=== PATIENT | female | born 1950 | race American Indian/Alaskan Native ===

== ENCOUNTER 2020-04-03 15:38 | Inpatient (IN) | payer MEDICARE ==
[2020-04-03] MEDS ORDERED: levETIRAcetam 1000 MG/NS 0.75% 1,000 MG/100 ML BAG IV ONE (15:52)
[2020-04-03] MEDS ORDERED: LORazepam 2 MG/ML VIAL IM ONE (15:52)
[2020-04-03] MEDS ORDERED: LORazepam 2 MG/ML VIAL IV ONE (16:03)
--- NOTE | 2020-04-03 16:11 | Consultation ---
History of Present Illness History of present illness: [facility] Date of Service: 04/03/2020 15:45:31 Impression: Status Epilepticus Comments/Sign-Out: Patient is a 69 years old woman who presents to the ED after she was found unresponsive, with right gaze deviation. She had a witnessed seizure on her way to the ED. Exam is limited due to patient unable to follow commands. Unable to obtain a NIHSS. On exam, eyes are opened but she is not following verbal commands. There's some grimacing to deep sternal rub. During my evaluation, patient had a tonic right gaze deviation, her head turned right, and she had tonic posturing of her left arm. Shortly after, she had generalized jerking of all 4 extremities. Ativan 2 mg was given and Keppra 1,000 mg IV was ordered. Presentation is more consistent with status epilepticus. Non contrast CTH showed no acute abnormalities. Metrics: Last Known Well: 04/03/2020 11:30:00 [facility] Notification Time: 04/03/2020 15:45:00 Arrival Time: 04/03/2020 15:38:00 Stamp Time: 04/03/2020 15:45:31 Time First Login Attempt: 04/03/2020 15:52:28 Video Start Time: 04/03/2020 15:52:28 Symptoms: AMS NIHSS Start Assessment Time: 04/03/2020 16:01:30 Patient is not a candidate for tPA. Patient was not deemed candidate for tPA thrombolytics because of Presentation more consistent with seizure. Video End Time: 04/03/2020 16:06:35 CT head showed no acute hemorrhage or acute core infarct. Clinical Presentation is not Suggestive of Large Vessel Occlusive Disease ED Physician notified of diagnostic impression and management plan on 04/03/2020 16:05:01 Our recommendations are outlined below. Recommendations: Activate Stroke Protocol Admission/Order Set Stroke/Telemetry Floor Neuro Checks Bedside Swallow Eval DVT Prophylaxis IV Fluids, Normal Saline Head of Bed 30 Degrees Euglycemia and Avoid Hyperthermia (PRN Acetaminophen) Routine Consultation with Inhouse Neurology for Follow up Care Sign Out: Discussed with Emergency Department Provider History of Present Illness: Patient is a 69 year old Female. Patient was brought by EMS for symptoms of AMS Patient is 69 years old woman who presents to the ED after her son found her in a "catatonic state". LKW at 11:30 am. As per EMS report, patient was found with her eyes opened but not following verbal commands or withdrawing to pain. She was also reported to have a right gaze deviation. Patient had a witnessed seizure by EMS on her way to the ED. PMhx significant for alcohol abuse and HTN. No other history is available at this time. Last seen normal was beyond 4.5 hours of presentation. There is no history of hemorrhagic complications or intracranial hemorrhage. There is no history of Recent Anticoagulants. There is no history of recent major surgery. There is no history of recent stroke. Examination: BP(188/98), NIHSS cannot be completed due to patient status. Due to the immediate potential for life-threatening deterioration due to underlying acute neurologic illness, I spent 35 minutes providing critical care. This time includes time for face to face visit via telemedicine, review of medical records, imaging studies and discussion of findings with providers, the patient and/or family. Dr Keisha Sheikh [facility] Case [id number] Medications and Allergies Allergies Allergy/AdvReac Type Severity Reaction Status Date / Time Unable to Assess Allergy Unverified 04/03/20 15:47 Active Meds: Active Medications Levetiracetam (Keppra 1,000 Mg/Ns 0.75% 100ml) 1,000 mg in 100 mls @ 400 mls/hr IV ONCE ONE Stop: 04/03/20 16:06
[2020-04-03 16:18] LABS: Basophils # (Auto) 0.1 K/mm3 (0.0-0.1); Basophils % (Auto) 0.7 % (0.0-1.8); Eosinophils # (Auto) 0.3 K/mm3 (0.0-0.4); Eosinophils % (Auto) 1.8 % (0.0-4.3); Hematocrit 38.5 % (30.3-42.9); Lymphocytes # (Auto) 3.3 K/mm3 (1.2-5.4); Lymphocytes % (Auto) 22.1 % (13.4-35.0); Mean Corpuscular HGB Conc 34 % (30-34); Mean Corpuscular Volume 94 fl (79-97); Monocytes # (Auto) 1.3 K/mm3 (0.0-0.8); Monocytes % (Auto) 8.9 % (0.0-7.3); Platelet Count 238 K/mm3 (140-440); Red Blood Count 4.08 M/mm3 (3.65-5.03); Red Cell Distribution Width 12.9 % (13.2-15.2)
--- NOTE | 2020-04-03 16:25 | Cat Scan Report ---
CT head/brain wo con INDICATION / CLINICAL INFORMATION: 69 years Female; MAIN: CODE STROKE ALL [phone]. TECHNIQUE: Routine CT head without contrast. All CT scans at this location are performed using CT dos e reduction for ALARA by means of automated exposure control. COMPARISON: None. FINDINGS: BRAIN / INTRACRANIAL CONTENTS: The motion degrades image quality. However, there is mild cerebral whi te matter disease which is nonspecific though may reflect microvascular angiopathy. There are foci of calcification within the basal ganglia bilaterally. There is no clear CT evidence of acute intracran ial hemorrhage. There is prominence of the lateral and third ventricles which may be slightly out of proportion to th e degree of cerebral atrophy and correlation would be needed regarding normal pressure hydrocephalus. No obstructing lesions are appreciated. ORBITS: No significant abnormality of visualized orbits. SINUSES / MASTOIDS: No significant abnormality the visualized paranasal sinuses or mastoid air cells. CRANIOCERVICAL JUNCTION: No significant abnormality. ADDITIONAL FINDINGS: None. IMPRESSION: 1. This mild microvascular angiopathy without CT evidence of acute intracranial hemorrhage. 2. There is prominence of the ventricular system which may be mildly out of proportion to the degree of cerebral atrophy as described. The study was specified as code stroke and called to the ER at 3:18 PM Central standard time. Signer Name: Thony Way MD Signed: 04/03/2020 4:20 PM Workstation Name: [id number]
[2020-04-03 16:44] LABS: INR 1.11 (0.87-1.13)
[2020-04-03 16:45] LABS: Partial Thromboplastin Time 29.4 Sec. (24.2-36.6)
[2020-04-03 16:53] LABS: BUN/Creatinine Ratio 14; Blood Urea Nitrogen 10 mg/dL (7-17); Calcium 9.3 mg/dL (8.4-10.2); Hemolysis Index 7
--- NOTE | 2020-04-03 18:45 | Emergency Department Report ---
ED Seizure HPI - General Chief Complaint: Seizure Stated Complaint: AMS Time Seen by Provider: 04/03/20 15:48 Source: EMS Mode of arrival: Stretcher Limitations: Altered Mental Status - History of Present Illness Initial Comments: Mrs. Toro is a 69 yo female with hx of HTN, alcohol dependence who presents with altered mental status and seizure via EMS. Unclear last drink of alcohol. Hx obtained from son Glenn [phone], Son saw his mother in bed around 11 AM. She appears drunk according to son. She normally drink alcohol all day. Alcohol intake greatly increased after the of her boyfriend 3-4 years ago. No previous hx of seizure. Another family member noticed that she was walking in a day. She then sat down and just stared off. EMS witnessed two seizures en route. ON arrival, patient has facial twitching and eye deviation. She is nonverbal. MD Complaint: seizure -: This afternoon Description of Episode: loss of consciousness Witnessed:: Yes Seizure History: none Possible Precipitating Event: other (History of alcohol dependence) - Related Data Allergies Allergy/AdvReac Type Severity Reaction Status Date / Time Unable to Assess Allergy Unverified 04/03/20 15:47 ED Review of Systems ROS: Stated complaint: AMS Other details as noted in HPI Comment: Unobtainable due to pts medical conditions (Altered mental status) ED Past Medical Hx - Past Medical History Previous Medical History?: Yes Hx Hypertension: Yes Hx CVA: No Hx Heart Attack/AMI: No Hx Congestive Heart Failure: No Hx Diabetes: No Hx Deep Vein Thrombosis: No Hx Pulmonary Embolism: No Hx GERD: Yes Hx Liver Disease: No Hx Renal Disease: No Hx of Cancer: No Hx Sickle Cell Disease: No Hx Arthritis: No Hx Headaches / Migraines: No Hx Seizures: Yes Hx Kidney Stones: No Hx Psychiatric Treatment: No Hx Asthma: No Hx COPD: No Hx Tuberculosis: No Hx Dementia: No Hx HIV: No - Social History Smoking Status: Never Smoker Substance Use Type: Alcohol ED Physical Exam - General Limitations: Altered Mental Status General appearance: lethargic, other (Partial seizure involving the face with right facial twitching eye deviation to the right) - Head Head exam: Present: atraumatic, normocephalic - Eye Eye exam: Absent: scleral icterus, conjunctival injection - ENT ENT exam: Present: mucous membranes dry - Neck Neck exam: Present: normal inspection - Respiratory Respiratory exam: Present: normal lung sounds bilaterally. Absent: respiratory distress, wheezes - Cardiovascular Cardiovascular Exam: Present: regular rate, normal rhythm, normal heart sounds - GI/Abdominal GI/Abdominal exam: Present: soft. Absent: distended, tenderness, guarding, rebound - Neurological Exam Neurological exam: Present: altered - Skin Skin exam: Present: warm, dry, intact, normal color ED Course Vital Signs 04/03/20 04/03/20 04/03/20 16:08 16:11 16:30 Temperature 98.3 F Pulse Rate 110 H 97 H 106 H Respiratory 20 20 54 H Rate Blood Pressure 151/82 Blood Pressure 203/102 [Left] O2 Sat by Pulse 96 95 Oximetry ED Medical Decision Making - Lab Data Result diagrams: 04/03/20 16:00 04/03/20 16:00 Laboratory Results - last 24 hr 04/03/20 04/03/20 04/03/20 16:00 16:00 16:00 WBC 14.8 H RBC 4.08 Hgb 13.0 Hct 38.5 MCV 94 MCH 32 MCHC 34 RDW 12.9 L Plt Count 238 Lymph % (Auto) 22.1 [place] % (Auto) 8.9 H Eos % (Auto) 1.8 Baso % (Auto) 0.7 Lymph # 3.3 [place] # 1.3 H Eos # 0.3 Baso # 0.1 Seg Neutrophils % 66.5 Seg Neutrophils # 9.8 H PT 14.1 INR 1.11 APTT 29.4 Thrombin Time Sodium 136 L Potassium 3.4 L Chloride 95.2 L Carbon Dioxide 18 L Anion Gap 26 BUN 10 Creatinine 0.7 Estimated GFR > 60 BUN/Creatinine Ratio 14 Glucose 456 H Calcium 9.3 Troponin T < 0.010 04/03/20 16:00 WBC RBC Hgb Hct MCV MCH MCHC RDW Plt Count Lymph % (Auto) [place] % (Auto) Eos % (Auto) Baso % (Auto) Lymph # [place] # Eos # Baso # Seg Neutrophils % Seg Neutrophils # PT INR APTT Thrombin Time 18.0 Sodium Potassium Chloride Carbon Dioxide Anion Gap BUN Creatinine Estimated GFR BUN/Creatinine Ratio Glucose Calcium Troponin T - Radiology Data Radiology results: report reviewed CT brain without contrast: There is evidence of cerebral atrophy, prominence of the lateral and third ventricles, calcifications at the basal ganglia, mild microvascular angiopathy no intracranial hemorrhage - Medical Decision Making Upon arrival I witnessed partial seizure while on EMS stretcher with right facial twitching and eye deviation. Patient was unresponsive. She received IM lorazepam. Code stroke initiated. Tele-neurologist agreed with diagnosis status epilepticus. She then developed generalized tonic-clonic seizure. She received second IV lorazepam dose. She received IV Keppra load. Tele- neurologist recommended admission for evaluation of status epilepticus. Unclear if this represents alcohol withdrawal. Admitted to hospitalist service in fair condition Critical Care Time: Yes Critical care time in (mins) excluding proc time.: 40 Critical care attestation.: If time is entered above; I have spent that time in minutes in the direct care of this critically ill patient, excluding procedure time. 40 minutes of critical care time excluding procedures were used in the care of the patient. I reviewed electronic record. I discussed treatment plan with the nursing team members at the bedside. I came immediately to the bedside upon patient's arrival. I spoke with paramedics. I obtained history from the son. Patient required multiple interventions and reassessments. I spoke with multiple consultants including hospitalist physician and tele-neurologist. ED Disposition Clinical Impression: Status epilepticus, Alcohol dependence Disposition: DC09 OP ADMIT IP TO THIS HOSP Is pt being admited?: Yes Does the pt Need Aspirin: No Condition: Stable
--- NOTE | 2020-04-04 00:49 | Event Note ---
Date: 04/03/20 See history and physical in the reports. Status epilepticus. EtOH withdrawal.
[2020-04-04] MEDS ORDERED: METOCLOPRAMIDE 10 MG/2 ML INJ IV PRN (00:50)
[2020-04-04] MEDS ORDERED: HYDROmorphone 1 MG/1 ML INJ IV PRN (00:50)
[2020-04-04] MEDS ORDERED: ACETAMINOPHEN 325 MG TAB PO PRN (00:50)
[2020-04-04] MEDS ORDERED: oxyCODONE /ACETAMINOPHEN 5-325MG TAB PO PRN (00:50)
[2020-04-04] MEDS ORDERED: ONDANSETRON 4 MG/2 ML INJ IV PRN (00:50)
[2020-04-04] MEDS ORDERED: LORazepam 2 MG/ML VIAL IV PRN (00:59)
[2020-04-04] MEDS ORDERED: POTASSIUM CHLORIDE ER 20 MEQ TAB PO ONE (01:08)
--- NOTE | 2020-04-04 01:19 | History and Physical Report ---
CHIEF COMPLAINT: Seizures and altered mental status since a.m. HISTORY OF PRESENT ILLNESS: A 69-year-old female with history of hypertension, alcohol dependence, comes in by EMS with altered mental status. The patient was apparently drunk at around 11:00 a.m. in the morning. Son has given the history. She normally drinks alcohol all day. Alcohol intake has greatly increased after a of her boyfriend 3-4 years ago. No previous history of seizures. EMS has witnessed 2 seizures en route and 1 episode of seizures in the Emergency Room. Altered sensorium after the seizures. Postictal state. No fever or chills. No exposure to coronavirus. PAST MEDICAL HISTORY: Significant for hypertension, diabetes and GERD. SOCIAL HISTORY: Does not smoke. Alcohol on a regular basis, quantity unknown. The patient is altered. FAMILY HISTORY: Hypertension. PAST SURGICAL HISTORY: Not available. REVIEW OF SYSTEMS: Significant for seizures x 3 since morning. Also, altered sensorium. Tremulous. Otherwise, review of systems negative. PHYSICAL EXAMINATION: GENERAL: Elderly female, altered sensorium. Lethargic. Pulse rate is 92, temperature is 98, respiratory rate is 18, blood pressure is 127/60, and sats are 95%. HEENT: Unremarkable. Pupils are equal and reactive. NECK: Supple, no lymphadenopathy, no thyromegaly. LUNGS: Clear to auscultation and percussion. Good air entry. CARDIOVASCULAR SYSTEM: S1, S2 heard. No gallop, no murmur, no rub. Apical impulse in left fifth intercostal space and midclavicular line. ABDOMEN: Soft and benign. No hepatosplenomegaly. No guarding, no rigidity. EXTREMITIES: Good pedal pulses. No pedal edema. CENTRAL NERVOUS SYSTEM: Alert, but disoriented. Lethargic. LABORATORY DATA: Significant for white count of 14,800, H and H of 13.0 and 38.5. Sodium is __, potassium is 3.4, BUN and creatinine is 10 and 0.7, glucose is 456. Serum alcohol is less than 0.01. ASSESSMENT AND PLAN: 1. New onset seizure disorder. The patient is on IV Keppra to be transitioned to p.o. Keppra. 2. New onset diabetes. The patient initiated on insulin. Accu-Cheks on before meals and at bedtime and also Novolin 70/30 was initiated. 15 units twice a day. 4. Hypokalemia, supplemented. 5. Hyponatremia. IV normal saline for now. 6. Delirium tremens. The patient initiated on CIWA protocol. 7. Deep venous thrombosis prophylaxis, heparin 5000 q. 12 hours. JOB# [id number] VSM/NTS
[2020-04-04 01:59] LABS: Basophils # (Auto) 0.1 K/mm3 (0.0-0.1); Basophils % (Auto) 0.8 % (0.0-1.8); Eosinophils # (Auto) 0.1 K/mm3 (0.0-0.4); Eosinophils % (Auto) 1.4 % (0.0-4.3); Hematocrit 34.2 % (30.3-42.9); Hemoglobin 11.4 gm/dl (10.1-14.3); Lymphocytes # (Auto) 1.5 K/mm3 (1.2-5.4); Lymphocytes % (Auto) 15.3 % (13.4-35.0); Mean Corpuscular HGB Conc 33 % (30-34); Mean Corpuscular Volume 95 fl (79-97); Monocytes # (Auto) 0.8 K/mm3 (0.0-0.8); Monocytes % (Auto) 8.7 % (0.0-7.3); Platelet Count 185 K/mm3 (140-440); Red Blood Count 3.61 M/mm3 (3.65-5.03); Red Cell Distribution Width 12.6 % (13.2-15.2)
[2020-04-04 02:15] LABS: Alanine Aminotransferase 11 units/L (7-56); Albumin 2.8 g/dL (3.9-5); BUN/Creatinine Ratio 18; Blood Urea Nitrogen 9 mg/dL (7-17); Hemolysis Index 4
[2020-04-04] MEDS: SODIUM CHLORIDE 0.9% 1000 ML 1,000 ML IV SCH ×2 (02:34→17:25)
[2020-04-04] MEDS: levETIRAcetam 750 MG in DEXTROSE 5% IN WATER 100 ML IV SCH ×2 (04:22→17:20)
[2020-04-04] MEDS: INSULIN NPH/REGULAR 70/30 INJ SUB-Q SCH ×2 (10:26→18:06)
[2020-04-04] MEDS: FAMOTIDINE 20 MG TAB PO SCH ×2 (10:26→21:35)
[2020-04-04] MEDS: INSULIN LISPRO 100 UNIT/ML SUB-Q SCH ×4 (10:45→21:49)
--- NOTE | 2020-04-04 14:41 | Progress Note ---
Subjective Date of service: 04/04/20 Interval history: I agree with the radiologist as there is bordrline enlargement of the ventricular system but not obstructive suspect alcohol withdrawal accounts for clinical picture will monitor closely once stable get MRI thanks full note dictated Objective - Vital Sign Vital Signs - 12hr 04/04/20 04/04/20 04/04/20 04:32 04:38 08:50 Temperature 98.0 F 99.1 F Pulse Rate 105 H 102 H 106 H Respiratory 18 18 Rate Blood Pressure 159/76 145/60 O2 Sat by Pulse 98 100 Oximetry 04/04/20 04/04/20 04/04/20 10:04 12:00 12:03 Temperature 98.9 F 97.9 F Pulse Rate 111 H 102 H 113 H Respiratory 18 18 Rate Blood Pressure 163/79 139/72 O2 Sat by Pulse 98 99 Oximetry - Laboratory Findings CBC and BMP: 04/04/20 01:29 04/04/20 01:29 Abnormal Lab Findings: Abnormal Labs 04/03/20 04/03/20 04/03/20 15:56 16:00 16:00 WBC 14.8 H RBC RDW 12.9 L Arthur % (Auto) 8.9 H Arthur # 1.3 H Seg Neutrophils % Seg Neutrophils # 9.8 H Sodium 136 L Potassium 3.4 L Chloride 95.2 L Carbon Dioxide 18 L Creatinine Glucose 456 H POC Glucose 431 H Hemoglobin A1c Albumin Lipase 04/04/20 04/04/20 04/04/20 01:29 01:29 01:29 WBC RBC 3.61 L RDW 12.6 L Arthur % (Auto) 8.7 H Arthur # Seg Neutrophils % 73.8 H Seg Neutrophils # Sodium Potassium 3.4 L Chloride Carbon Dioxide Creatinine 0.5 L Glucose 354 H POC Glucose Hemoglobin A1c 10.6 H Albumin 2.8 L Lipase 04/04/20 04/04/20 04/04/20 01:29 10:21 11:49 WBC RBC RDW Arthur % (Auto) Arthur # Seg Neutrophils % Seg Neutrophils # Sodium Potassium Chloride Carbon Dioxide Creatinine Glucose POC Glucose 313 H 346 H Hemoglobin A1c Albumin Lipase 6 L
--- NOTE | 2020-04-04 14:53 | Progress Note ---
Assessment and Plan Assessment and plan: --Metabolic encephalopathy; Multifactorial, secondary to alcohol withdrawal symptoms Probably postictal due to seizure electrolyte abnormalities, Neurochecks and closely monitor Neurology consulted --Alcohol withdrawal symptoms; Supportive care, [facility] protocol Restraint for safety --Seizure disorder; new onset[probably alcohol-related] Seizure precautions, fall precautions Antiepileptic medications, aspiration precautions Neurology following --Type 2 diabetes mellitus; not on any medications Accu-Chek sliding scale coverage ADA diet Long-acting insulin as needed --Hyponatremia; present on admission Normal saline, monitor electrolytes --Hypokalemia; replenish per protocol Closely monitor electrolytes, check magnesium --DVT prophylaxis; Lovenox Monitor closely and adjust management as needed Plan of care reviewed with the patient's nurse History Interval history: Seen and examined at the bedside this afternoon Patient's chart, medications, tests reviewed Patient is agitated, confused tremulous Probably alcohol withdrawal symptoms No new episodes of seizures since admission Vital signs noted Hospitalist Physical - Constitutional Vitals: Temp Pulse Resp BP Pulse Ox 97.9 F 113 H 18 139/72 99 04/04/20 12:03 04/04/20 12:03 04/04/20 12:03 04/04/20 12:03 04/04/20 12:03 General appearance: Present: mild distress, well-nourished, other (Confused agitated and tremulous) - EENT Eyes: Present: PERRL, EOM intact - Neck Neck: Present: supple, normal ROM - Respiratory Respiratory effort: normal Respiratory: bilateral: diminished, negative: rales, rhonchi, wheezing - Cardiovascular Rhythm: regular Heart Sounds: Present: S1 & S2 - Extremities Extremities: no ischemia, No edema - Abdominal General gastrointestinal: soft, non-tender, non-distended, normal bowel sounds - Integumentary Integumentary: Present: clear, warm - Psychiatric Psychiatric: agitated, other (Confused and tremulous) - Neurologic Neurologic: moves all extremities (Tremulousness agitation, confused) Results - Labs CBC & Chem 7: 04/04/20 01:29 04/04/20 01:29 Labs: Laboratory Last Values WBC 9.7 K/mm3 (4.5-11.0) 04/04/20 01: RBC 3.61 M/mm3 (3.65-5.03) L 04/04/20 01: Hgb 11.4 gm/dl (10.1-14.3) 04/04/20 01: Hct 34.2 % (30.3-42.9) 04/04/20 01: MCV 95 fl (79-97) 04/04/20 01: MCH 32 pg (28-32) 04/04/20 01: MCHC 33 % (30-34) 04/04/20 01: RDW 12.6 % (13.2-15.2) L 04/04/20 01: Plt Count 185 K/mm3 (140-440) 04/04/20 01: Lymph % (Auto) 15.3 % (13.4-35.0) 04/04/20 01: Rock % (Auto) 8.7 % (0.0-7.3) H 04/04/20: Eos % (Auto) 1.4 % (0.0-4.3) 04/04/20 01: Baso % (Auto) 0.8 % (0.0-1.8) 04/04/20 01: Lymph # 1.5 K/mm3 (1.2-5.4) 04/04/20 01: Rock # 0.8 K/mm3 (0.0-0.8) 04/04/20 01: Eos # 0.1 K/mm3 (0.0-0.4) 04/04/20 01: Baso # 0.1 K/mm3 (0.0-0.1) 04/04/20 01: Seg Neutrophils % 73.8 % (40.0-70.0) H 04/04/20 01: Seg Neutrophils # 7.1 K/mm3 (1.8-7.7) 04/04/20 01: PT 14.1 Sec. (12.2-14.9) 04/03/20 16:00 INR 1.11 (0.87-1.13) 04/03/20 16:00 APTT 29.4 Sec. (24.2-36.6) 04/03/20 16:00 Thrombin Time 18.0 Sec. (15.1-19.6) 04/03/20 16:00 Sodium 140 mmol/L (137-145) 04/04/20 01:29 Potassium 3.4 mmol/L (3.6-5.0) L 04/04/20 01:29 Chloride 98.6 mmol/L (98-107) 04/04/20 01:29 Carbon Dioxide 22 mmol/L (22-30) 04/04/20 01:29 Anion Gap 23 mmol/L 04/04/20 01:29 BUN 9 mg/dL (7-17) 04/04/20 01:29 Creatinine 0.5 mg/dL (0.7-1.2) L 04/04/20 01:29 Estimated GFR > 60 ml/min 04/04/20 01:29 BUN/Creatinine Ratio 18 % 04/04/20 01:29 Glucose 354 mg/dL (65-100) H 04/04/20 01:29 POC Glucose 346 (70-105) H 04/04/20 11:49 Hemoglobin A1c 10.6 % (4-6) H 04/04/20 01:29 Calcium 9.0 mg/dL (8.4-10.2) 04/04/20 01:29 Total Bilirubin 0.40 mg/dL (0.1-1.2) 04/04/20 01:29 AST 22 units/L (5-40) 04/04/20 01:29 ALT 11 units/L (7-56) 04/04/20 01:29 Alkaline Phosphatase 115 units/L (35-129) 04/04/20 01:29 Ammonia 52.0 umol/L (25-60) 04/04/20 01:29 Troponin T < 0.010 ng/mL (0.00-0.029) 04/03/20 16:00 Total Protein 6.5 g/dL (6.3-8.2) 04/04/20 01:29 Albumin 2.8 g/dL (3.9-5) L 04/04/20 01:29 Albumin/Globulin Ratio 0.8 % 04/04/20 01:29 Amylase 48 units/L (27-131) 04/04/20 01:29 Lipase 6 units/L (13-60) L 04/04/20 01:29 Plasma/Serum Alcohol < 0.01 % (0-0.07) 04/03/20 18:30 Barajas/IV: Voiding Method Incontinent IV Catheter Type [Right Hand] Peripheral IV Active Medications - Current Medications Current Medications: Generic Name Dose Route Start Last Admin Trade Name Freq PRN Reason Stop Dose Admin Acetaminophen 650 mg 04/04/20 00:50 Tylenol PO Q4H PRN Pain MILD(1-3)/Fever >100.5/DENISE Famotidine 20 mg 04/04/20 10:00 04/04/20 10:26 Pepcid PO 20 mg BID JERRY Administration Hydromorphone HCl 0.5 mg 04/04/20 00:50 Dilaudid IV Q3H PRN Pain , Severe (7-10) Sodium Chloride 1,000 mls @ 75 mls/hr 04/04/20 01:00 04/04/20 02:34 Nacl 0.9% 1000 Ml IV 75 mls/hr DIRECT JERRY Administration Levetiracetam 750 mg/ Dextrose 107.5 mls @ 400 mls/hr 04/04/20 04:00 04/04/20 04:22 IV 400 mls/hr Q12H JERRY Administration Insulin Human Isoph/Insulin Regular 15 unit 04/04/20 08:00 04/04/20 10:26 Humulin 70/30 SUB-Q 15 unit BIDDIAB JERRY Administration Insulin Human Lispro 0 unit 04/04/20 07:30 04/04/20 14:22 Humalog SUB-Q 8 unit ACHS JERRY Administration Protocol Lorazepam 2 mg 04/04/20 00:59 Ativan PO Q1H PRN CIWA-Ar 8-15 Lorazepam 4 mg 04/04/20 00:59 Ativan IV Q1H PRN CIWA-Ar 16-25 Lorazepam 4 mg 04/04/20 00:59 Ativan IV Q15MIN PRN CIWA-Ar >25 Metoclopramide HCl 10 mg 04/04/20 00:50 Reglan IV Q6H PRN Nausea And Vomiting Ondansetron HCl 4 mg 04/04/20 00:50 Zofran IV Q8H PRN Nausea And Vomiting Oxycodone/Acetaminophen 1 tab 04/04/20 00:50 Percocet 5/325 PO Q6H PRN Pain, Moderate (4-6) Sodium Chloride 10 ml 04/04/20 10:00 04/04/20 10:26 Sodium Chloride Flush Syringe 10 Ml IV 10 ml BID JERRY Administration Sodium Chloride 10 ml 04/04/20 00:50 Sodium Chloride Flush Syringe 10 Ml IV PRN PRN LINE FLUSH
--- NOTE | 2020-04-04 15:46 | Consultation ---
HISTORY OF PRESENT ILLNESS: This is a 69-year-old black female who presents to [facility] with a prior history of altered mental state. She apparently had been drinking alcohol heavily for the last several months. History was obtained by her son who stated that the mother had been in and out of bed and apparently drinking quite heavily, began to become agitated, hallucinatory. She was nonverbal when she presented to the Emergency Room. The patient's past medical history was unable to assess because of her hallucinatory state. The patient's hematocrit on presentation was 39, white blood count was elevated at 14,000. Potassium was 3.4. Glucose was elevated at 256. Patient was admitted to the hospital, subsequently had a CT scan of the head, which I reviewed. The CT scan shows marked amount of atrophy, enlarged ventricular system, particularly posteriorly of the lateral ventricles. There is some slight suggestion of edema within the white matter causing narrowing of the sulcal pattern. This is minimal however. She has as well dilation of the temporal horns of ventricular system. There is no past CT scans to compare this to. This certainly does at least to me have the appearance of enlarged ventricular system and which is borderline low and I agree with the radiologist on this as well. There is white matter microischemic changes present. PHYSICAL EXAMINATION: Reveals she is agitated, hallucinatory, does not follow simple commands, she is not oriented. She cannot give me her name. She moves all extremities well. She has full ocular movements. No tremors or asterixis. The patient is not having any focal seizure activity. She is in 4-point restraints at present time, appears to be agitated intermittently. While I was examining the patient, the telephone began ringing in the room. She was not able to identify the sign of a telephone, seems to be very impaired mentally as a result of alcohol withdrawal at present time. PLAN: Repeat MRI scan of the brain to further assess, look into the issue of the ventricular system enlargement. I will ask the son when I speak to him whether this has been noted on previous CT scans. I would not think an LP is indicated at this point given the fact that this does not appear to be an acute change and this is nonobstructive enlargement of the ventricular system. JOB# [id number] SUZI/NTS
[2020-04-04] MEDS: LORazepam 2 MG TAB PO PRN (21:35)
[2020-04-05] MEDS: levETIRAcetam 750 MG in DEXTROSE 5% IN WATER 100 ML IV SCH ×2 (04:54→15:39)
[2020-04-05] MEDS: SODIUM CHLORIDE 0.9% 1000 ML 1,000 ML IV SCH ×2 (05:38→23:50)
[2020-04-05 06:06] LABS: BUN/Creatinine Ratio 18; Blood Urea Nitrogen 7 mg/dL (7-17); Calcium 8.8 mg/dL (8.4-10.2); Hemolysis Index 14
[2020-04-05] MEDS: INSULIN NPH/REGULAR 70/30 INJ SUB-Q SCH ×2 (08:59→16:52)
[2020-04-05] MEDS: FAMOTIDINE 20 MG TAB PO SCH ×2 (09:02→22:00)
[2020-04-05] MEDS: FOLIC ACID 1 MG TAB PO SCH (09:02)
[2020-04-05] MEDS: INSULIN LISPRO 100 UNIT/ML SUB-Q SCH ×3 (09:02→16:56)
[2020-04-05] MEDS: THIAMINE 100 MG TAB PO SCH (09:03)
[2020-04-05] MEDS ORDERED: POTASSIUM CHLORIDE ER 20 MEQ TAB PO NR (09:25)
--- NOTE | 2020-04-05 09:26 | Progress Note ---
Assessment and Plan Assessment and plan: --Hypomagnesemia; IV magnesium sulfate 4 g 1 dose Maintainance dose of Mag-Ox 400 mg daily Closely monitor electrolytes --Hyponatremia; present on admission Resolved, sodium level today within normal range --Hypokalemia; replenish per protocol Closely monitor electrolytes, check magnesium --Metabolic encephalopathy; Multifactorial, secondary to alcohol withdrawal symptoms Probably postictal due to seizure electrolyte abnormalities, Neurochecks ,Neurology consulted --Alcohol withdrawal symptoms; Supportive care, [facility] protocol Restraint for safety as needed --Seizure disorder; new onset[probably alcohol-related] Seizure precautions, fall precautions Antiepileptic medications, aspiration precautions Neurology following --Type 2 diabetes mellitus; moderate control Accu-Chek sliding scale coverage ADA diet Long-acting insulin as needed, A1c 10.6 Diabetic education, nutrition education when patient is more awake --DVT prophylaxis; Lovenox Monitor closely and adjust management as needed Plan of care reviewed with the patient's nurse History Interval history: I have seen and examined the patient at bedside today Patient is more calm and quiet however very confused Not in acute distress On [facility] protocol Hospitalist Physical - Constitutional Vitals: Temp Pulse Resp BP Pulse Ox 97 F L 108 H 20 158/83 97 04/05/20 07:00 04/05/20 07:00 04/05/20 07:00 04/05/20 07:00 04/05/20 07:00 General appearance: Present: mild distress, well-nourished, other (Confused no agitation) - EENT Eyes: Present: PERRL, EOM intact - Neck Neck: Present: supple, normal ROM - Respiratory Respiratory effort: normal Respiratory: bilateral: diminished, negative: rales, rhonchi, wheezing - Cardiovascular Rhythm: regular Heart Sounds: Present: S1 & S2 - Extremities Extremities: no ischemia, No edema - Abdominal General gastrointestinal: soft, non-distended, normal bowel sounds - Integumentary Integumentary: Present: clear, warm - Psychiatric Psychiatric: appropriate mood/affect, cooperative - Neurologic Neurologic: CNII-XII intact, moves all extremities Results - Labs CBC & Chem 7: 04/04/20 01:29 04/05/20 04:57 Labs: Laboratory Last Values WBC 9.7 K/mm3 (4.5-11.0) 04/04/20 01:29 RBC 3.61 M/mm3 (3.65-5.03) L 04/04/20 01: Hgb 11.4 gm/dl (10.1-14.3) 04/04/20 01: Hct 34.2 % (30.3-42.9) 04/04/20 01: MCV 95 fl (79-97) 04/04/20 01: MCH 32 pg (28-32) 04/04/20 01: MCHC 33 % (30-34) 04/04/20 01: RDW 12.6 % (13.2-15.2) L 04/04/20 01: Plt Count 185 K/mm3 (140-440) 04/04/20 01: Lymph % (Auto) 15.3 % (13.4-35.0) 04/04/20 01: [place] % (Auto) 8.7 % (0.0-7.3) H 04/04/20: Eos % (Auto) 1.4 % (0.0-4.3) 04/04/20 01: Baso % (Auto) 0.8 % (0.0-1.8) 04/04/20 01: Lymph # 1.5 K/mm3 (1.2-5.4) 04/04/20 01: [place] # 0.8 K/mm3 (0.0-0.8) 04/04/20 01: Eos # 0.1 K/mm3 (0.0-0.4) 04/04/20 01: Baso # 0.1 K/mm3 (0.0-0.1) 04/04/20 01: Seg Neutrophils % 73.8 % (40.0-70.0) H 04/04/20 01: Seg Neutrophils # 7.1 K/mm3 (1.8-7.7) 04/04/20 01: PT 14.1 Sec. (12.2-14.9) 04/03/20 16:00 INR 1.11 (0.87-1.13) 04/03/20 16:00 APTT 29.4 Sec. (24.2-36.6) 04/03/20 16:00 Thrombin Time 18.0 Sec. (15.1-19.6) 04/03/20 16:00 Sodium 139 mmol/L (137-145) 04/05/20 04:57 Potassium 3.2 mmol/L (3.6-5.0) L 04/05/20 04:57 Chloride 101.8 mmol/L (98-107) 04/05/20 04:57 Carbon Dioxide 22 mmol/L (22-30) 04/05/20 04:57 Anion Gap 18 mmol/L 04/05/20 04:57 BUN 7 mg/dL (7-17) 04/05/20 04:57 Creatinine 0.4 mg/dL (0.7-1.2) L 04/05/20 04:57 Estimated GFR > 60 ml/min 04/05/20 04:57 BUN/Creatinine Ratio 18 % 04/05/20 04:57 Glucose 232 mg/dL (65-100) H 04/05/20 04:57 POC Glucose 269 (70-105) H 04/05/20 07:50 Hemoglobin A1c 10.6 % (4-6) H 04/04/20 01:29 Calcium 8.8 mg/dL (8.4-10.2) 04/05/20 04:57 Total Bilirubin 0.40 mg/dL (0.1-1.2) 04/04/20 01:29 AST 22 units/L (5-40) 04/04/20 01:29 ALT 11 units/L (7-56) 04/04/20 01:29 Alkaline Phosphatase 115 units/L (35-129) 04/04/20 01:29 Ammonia 52.0 umol/L (25-60) 04/04/20 01:29 Troponin T < 0.010 ng/mL (0.00-0.029) 04/03/20 16:00 Total Protein 6.5 g/dL (6.3-8.2) 04/04/20 01:29 Albumin 2.8 g/dL (3.9-5) L 04/04/20 01:29 Albumin/Globulin Ratio 0.8 % 04/04/20 01:29 Amylase 48 units/L (27-131) 04/04/20 01:29 Lipase 6 units/L (13-60) L 04/04/20 01:29 Plasma/Serum Alcohol < 0.01 % (0-0.07) 04/03/20 18:30 [place]/IV: Voiding Method Incontinent IV Catheter Type [Left Hand] INT / Saline Lock IV Catheter Type [Right Hand] Peripheral IV Active Medications - Current Medications Current Medications: Generic Name Dose Route Start Last Admin Trade Name Freq PRN Reason Stop Dose Admin Acetaminophen 650 mg 04/04/20 00:50 Tylenol PO Q4H PRN Pain MILD(1-3)/Fever >100.5/DENISE Famotidine 20 mg 04/04/20 10:00 04/05/20 09:02 Pepcid PO 20 mg BID JERRY Administration Folic Acid 1 mg 04/05/20 10:00 04/05/20 09:02 Folvite PO 1 mg QDAY JERRY Administration Hydromorphone HCl 0.5 mg 04/04/20 00:50 Dilaudid IV Q3H PRN Pain , Severe (7-10) Sodium Chloride 1,000 mls @ 75 mls/hr 04/04/20 01:00 04/05/20 05:38 Nacl 0.9% 1000 Ml IV 75 mls/hr DIRECT JERRY Administration Levetiracetam 750 mg/ Dextrose 107.5 mls @ 400 mls/hr 04/04/20 04:00 04/05/20 04:54 IV 400 mls/hr Q12H JERRY Administration Insulin Human Isoph/Insulin Regular 15 unit 04/04/20 08:00 04/05/20 08:59 Humulin 70/30 SUB-Q 15 unit BIDDIAB JERRY Administration Insulin Human Lispro 0 unit 04/04/20 07:30 04/05/20 09:02 Humalog SUB-Q 4 unit ACHS JERRY Administration Protocol Lorazepam 2 mg 04/04/20 00:59 04/04/20 21:35 Ativan PO 2 mg Q1H PRN Administration [facility]-Ar 8-15 Lorazepam 4 mg 04/04/20 00:59 Ativan IV Q1H PRN [facility] 16-25 Lorazepam 4 mg 04/04/20 00:59 Ativan IV Q15MIN PRN [facility]-Ar >25 Metoclopramide HCl 10 mg 04/04/20 00:50 Reglan IV Q6H PRN Nausea And Vomiting Ondansetron HCl 4 mg 04/04/20 00:50 Zofran IV Q8H PRN Nausea And Vomiting Oxycodone/Acetaminophen 1 tab 04/04/20 00:50 Percocet 5/325 PO Q6H PRN Pain, Moderate (4-6) Potassium Chloride 40 meq 04/05/20 09:25 K-Dur PO 04/05/20 09:26 ONCE ONE Sodium Chloride 10 ml 04/04/20 10:00 04/05/20 09:09 Sodium Chloride Flush Syringe 10 Ml IV 10 ml BID JERRY Administration Sodium Chloride 10 ml 04/04/20 00:50 Sodium Chloride Flush Syringe 10 Ml IV PRN PRN LINE FLUSH Thiamine HCl 100 mg 04/05/20 10:00 04/05/20 09:03 Vitamin B-1 PO 100 mg QDAY JERRY Administration
[2020-04-05] MEDS ORDERED: MAGNESIUM SULFATE 4 GM/100 ML BAG IV ONE (17:21)
[2020-04-06] MEDS: INSULIN LISPRO 100 UNIT/ML SUB-Q SCH ×5 (00:59→22:30)
[2020-04-06] MEDS: levETIRAcetam 750 MG in DEXTROSE 5% IN WATER 100 ML IV SCH ×2 (04:24→15:36)
[2020-04-06 05:48] LABS: BUN/Creatinine Ratio 14; Blood Urea Nitrogen 7 mg/dL (7-17); Calcium 8.7 mg/dL (8.4-10.2); Hemolysis Index 8
[2020-04-06] MEDS: INSULIN NPH/REGULAR 70/30 INJ SUB-Q SCH (08:07)
[2020-04-06] MEDS ORDERED: MAGNESIUM OXIDE 400 MG TAB PO SCH (10:00)
[2020-04-06] MEDS: FOLIC ACID 1 MG TAB PO SCH (10:20)
[2020-04-06] MEDS: FAMOTIDINE 20 MG TAB PO SCH ×2 (10:20→21:35)
[2020-04-06] MEDS: THIAMINE 100 MG TAB PO SCH (10:23)
--- NOTE | 2020-04-06 16:11 | Progress Note ---
Subjective Date of service: 04/06/20 Objective - Vital Sign Vital Signs - 12hr 04/06/20 04/06/20 04/06/20 07:53 08:00 09:36 Temperature 98.6 F Pulse Rate 103 H 109 H Respiratory 18 Rate Blood Pressure 165/90 [Left] O2 Sat by Pulse 98 98 Oximetry 04/06/20 11:30 Temperature 98.2 F Pulse Rate 109 H Respiratory 18 Rate Blood Pressure 154/80 [Left] O2 Sat by Pulse 98 Oximetry - Laboratory Findings CBC and BMP: 04/04/20 01:29 04/06/20 04:57 Abnormal Lab Findings: Abnormal Labs 04/03/20 04/03/20 04/03/20 15:56 16:00 16:00 WBC 14.8 H RBC RDW 12.9 L [place] % (Auto) 8.9 H [place] # 1.3 H Seg Neutrophils % Seg Neutrophils # 9.8 H Sodium 136 L Potassium 3.4 L Chloride 95.2 L Carbon Dioxide 18 L Creatinine Glucose 456 H POC Glucose 431 H Hemoglobin A1c Magnesium Albumin Lipase 04/04/20 04/04/20 04/04/20 01:29 01:29 01:29 WBC RBC 3.61 L RDW 12.6 L [place] % (Auto) 8.7 H [place] # Seg Neutrophils % 73.8 H Seg Neutrophils # Sodium Potassium 3.4 L Chloride Carbon Dioxide Creatinine 0.5 L Glucose 354 H POC Glucose Hemoglobin A1c 10.6 H Magnesium Albumin 2.8 L Lipase 04/04/20 04/04/20 04/04/20 01:29 10:21 11:49 WBC RBC RDW [place] % (Auto) [place] # Seg Neutrophils % Seg Neutrophils # Sodium Potassium Chloride Carbon Dioxide Creatinine Glucose POC Glucose 313 H 346 H Hemoglobin A1c Magnesium Albumin Lipase 6 L 04/04/20 04/04/20 04/05/20 17:38 21:49 04:57 WBC RBC RDW [place] % (Auto) [place] # Seg Neutrophils % Seg Neutrophils # Sodium Potassium 3.2 L Chloride Carbon Dioxide Creatinine 0.4 L Glucose 232 H POC Glucose 130 H 238 H Hemoglobin A1c Magnesium Albumin Lipase 04/05/20 04/05/20 04/05/20 07:50 11:08 12:11 WBC RBC RDW [place] % (Auto) [place] # Seg Neutrophils % Seg Neutrophils # Sodium Potassium Chloride Carbon Dioxide Creatinine Glucose POC Glucose 269 H 269 H Hemoglobin A1c Magnesium 1.20 L Albumin Lipase 04/05/20 04/06/20 04/06/20 16:51 01:03 04:57 WBC RBC RDW [place] % (Auto) [place] # Seg Neutrophils % Seg Neutrophils # Sodium Potassium 3.0 L Chloride Carbon Dioxide Creatinine 0.5 L Glucose 134 H POC Glucose 230 H 165 H Hemoglobin A1c Magnesium 3.00 H Albumin Lipase 04/06/20 04/06/20 07:14 11:37 WBC RBC RDW [place] % (Auto) [place] # Seg Neutrophils % Seg Neutrophils # Sodium Potassium Chloride Carbon Dioxide Creatinine Glucose POC Glucose 131 H 221 H Hemoglobin A1c Magnesium Albumin Lipase
[2020-04-06] MEDS: SODIUM CHLORIDE 0.9% 1000 ML 1,000 ML IV SCH (16:52)
--- NOTE | 2020-04-06 18:29 | Progress Note ---
Assessment and Plan Assessment and plan: --Metabolic encephalopathy; Multifactorial, due to alcohol withdrawal symptoms seizure, electrolyte abnormalities, Patient is more alert and awake but confused at times --Hypomagnesemia; Overcorrected, hold magnesium oxide Monitor levels --Hyponatremia; present on admission Resolved, sodium level today within normal range --Hypokalemia; replenish per protocol Closely monitor electrolytes, check magnesium --Alcohol withdrawal symptoms; Supportive care, [facility] protocol Restraint for safety as needed --Seizure disorder; new onset[probably alcohol-related] Seizure precautions, fall precautions Antiepileptic medications, aspiration precautions Neurology following --Type 2 diabetes mellitus; moderate control Accu-Chek sliding scale coverage ADA diet Long-acting insulin as needed, A1c 10.6 Diabetic education, nutrition education when patient is more awake --DVT prophylaxis; Lovenox Monitor closely and adjust management as needed Plan of care reviewed with the patient's nurse History Interval history: Patient seen and examined at bedside this afternoon Patient's chart and medications reviewed Patient is on [facility] protocol for alcohol withdrawal symptoms Patient has no tremulousness or agitation However is confused Vital signs noted Hospitalist Physical - Constitutional Vitals: Temp Pulse Resp BP Pulse Ox 98.6 F 100 H 18 143/76 98 04/06/20 16:00 04/06/20 16:00 04/06/20 16:00 04/06/20 16:00 04/06/20 16:00 General appearance: Present: no acute distress, well-nourished, other (Confused no agitation) - EENT Eyes: Present: PERRL, EOM intact - Neck Neck: Present: supple, normal ROM - Respiratory Respiratory effort: normal Respiratory: bilateral: diminished, negative: rales, rhonchi, wheezing - Cardiovascular Rhythm: regular Heart Sounds: Present: S1 & S2 - Extremities Extremities: no ischemia, No edema - Abdominal General gastrointestinal: soft, non-tender, non-distended, normal bowel sounds - Integumentary Integumentary: Present: clear, warm - Psychiatric Psychiatric: appropriate mood/affect, other (Confused) - Neurologic Neurologic: moves all extremities Results - Labs CBC & Chem 7: 04/04/20 01:29 04/06/20 04:57 Labs: Laboratory Last Values WBC 9.7 K/mm3 (4.5-11.0) 04/04/20 01:29 RBC 3.61 M/mm3 (3.65-5.03) L 04/04/20 01: Hgb 11.4 gm/dl (10.1-14.3) 04/04/20 01: Hct 34.2 % (30.3-42.9) 04/04/20 01: MCV 95 fl (79-97) 04/04/20 01: MCH 32 pg (28-32) 04/04/20 01: MCHC 33 % (30-34) 04/04/20 01: RDW 12.6 % (13.2-15.2) L 04/04/20 01: Plt Count 185 K/mm3 (140-440) 04/04/20 01: Lymph % (Auto) 15.3 % (13.4-35.0) 04/04/20 01: [place] % (Auto) 8.7 % (0.0-7.3) H 04/04/20 01: Eos % (Auto) 1.4 % (0.0-4.3) 04/04/20 01: Baso % (Auto) 0.8 % (0.0-1.8) 04/04/20 01: Lymph # 1.5 K/mm3 (1.2-5.4) 04/04/20 01: [place] # 0.8 K/mm3 (0.0-0.8) 04/04/20 01: Eos # 0.1 K/mm3 (0.0-0.4) 04/04/20 01: Baso # 0.1 K/mm3 (0.0-0.1) 04/04/20 01: Seg Neutrophils % 73.8 % (40.0-70.0) H 04/04/20 01: Seg Neutrophils # 7.1 K/mm3 (1.8-7.7) 04/04/20 01: PT 14.1 Sec. (12.2-14.9) 04/03/20 16:00 INR 1.11 (0.87-1.13) 04/03/20 16:00 APTT 29.4 Sec. (24.2-36.6) 04/03/20 16:00 Thrombin Time 18.0 Sec. (15.1-19.6) 04/03/20 16:00 Sodium 142 mmol/L (137-145) 04/06/20 04:57 Potassium 3.0 mmol/L (3.6-5.0) L 04/06/20 04:57 Chloride 106.8 mmol/L (98-107) 04/06/20 04:57 Carbon Dioxide 22 mmol/L (22-30) 04/06/20 04:57 Anion Gap 16 mmol/L 04/06/20 04:57 BUN 7 mg/dL (7-17) 04/06/20 04:57 Creatinine 0.5 mg/dL (0.7-1.2) L 04/06/20 04:57 Estimated GFR > 60 ml/min 04/06/20 04:57 BUN/Creatinine Ratio 14 % 04/06/20 04:57 Glucose 134 mg/dL (65-100) H 04/06/20 04:57 POC Glucose 285 (70-105) H 04/06/20 16:27 Hemoglobin A1c 10.6 % (4-6) H 04/04/20 01:29 Calcium 8.7 mg/dL (8.4-10.2) 04/06/20 04:57 Magnesium 3.00 mg/dL (1.7-2.3) H 04/06/20 04:57 Total Bilirubin 0.40 mg/dL (0.1-1.2) 04/04/20 01:29 AST 22 units/L (5-40) 04/04/20 01:29 ALT 11 units/L (7-56) 04/04/20 01:29 Alkaline Phosphatase 115 units/L (35-129) 04/04/20 01:29 Ammonia 52.0 umol/L (25-60) 04/04/20 01:29 Troponin T < 0.010 ng/mL (0.00-0.029) 04/03/20 16:00 Total Protein 6.5 g/dL (6.3-8.2) 04/04/20 01:29 Albumin 2.8 g/dL (3.9-5) L 04/04/20 01:29 Albumin/Globulin Ratio 0.8 % 04/04/20 01:29 Amylase 48 units/L (27-131) 04/04/20 01:29 Lipase 6 units/L (13-60) L 04/04/20 01:29 Plasma/Serum Alcohol < 0.01 % (0-0.07) 04/03/20 18:30 Barajas/IV: Voiding Method Diaper IV Catheter Type [Left Forearm Peripheral IV ] IV Catheter Type [Left Hand] INT / Saline Lock IV Catheter Type [Right Hand] Peripheral IV Active Medications - Current Medications Current Medications: Generic Name Dose Route Start Last Admin Trade Name Freq PRN Reason Stop Dose Admin Acetaminophen 650 mg 04/04/20 00:50 Tylenol PO Q4H PRN Pain MILD(1-3)/Fever >100.5/DENISE Famotidine 20 mg 04/04/20 10:00 04/06/20 10:20 Pepcid PO 20 mg BID JERRY Administration Folic Acid 1 mg 04/05/20 10:00 04/06/20 10:20 Folvite PO 1 mg QDAY JERRY Administration Hydromorphone HCl 0.5 mg 04/04/20 00:50 Dilaudid IV Q3H PRN Pain , Severe (7-10) Sodium Chloride 1,000 mls @ 75 mls/hr 04/04/20 01:00 04/06/20 16:52 Nacl 0.9% 1000 Ml IV 75 mls/hr DIRECT JERRY Administration Levetiracetam 750 mg/ Dextrose 107.5 mls @ 400 mls/hr 04/04/20 04:00 04/06/20 16:59 IV Infused Q12H JERRY Infusion Insulin Human Isoph/Insulin Regular 15 unit 04/04/20 08:00 04/06/20 08:07 Humulin 70/30 SUB-Q 15 unit BIDDIAB JERRY Administration Insulin Human Lispro 0 unit 04/04/20 07:30 04/06/20 16:52 Humalog SUB-Q 4 unit ACHS JERRY Administration Protocol Lorazepam 2 mg 04/04/20 00:59 04/04/20 21:35 Ativan PO 2 mg Q1H PRN Administration [facility]-Ar 8-15 Lorazepam 4 mg 04/04/20 00:59 Ativan IV Q1H PRN [facility]-Ar 16-25 Lorazepam 4 mg 04/04/20 00:59 Ativan IV Q15MIN PRN [facility]-Ar >25 Magnesium Oxide 400 mg 04/06/20 10:00 04/06/20 10:23 Mag-Ox PO 400 mg QDAY JERRY Administration Metoclopramide HCl 10 mg 04/04/20 00:50 Reglan IV Q6H PRN Nausea And Vomiting Ondansetron HCl 4 mg 04/04/20 00:50 Zofran IV Q8H PRN Nausea And Vomiting Oxycodone/Acetaminophen 1 tab 04/04/20 00:50 Percocet 5/325 PO Q6H PRN Pain, Moderate (4-6) Sodium Chloride 10 ml 04/04/20 10:00 04/06/20 10:20 Sodium Chloride Flush Syringe 10 Ml IV 10 ml BID JERRY Administration Sodium Chloride 10 ml 04/04/20 00:50 Sodium Chloride Flush Syringe 10 Ml IV PRN PRN LINE FLUSH Thiamine HCl 100 mg 04/05/20 10:00 04/06/20 10:23 Vitamin B-1 PO 100 mg QDAY JERRY Administration
[2020-04-07] MEDS: levETIRAcetam 750 MG in DEXTROSE 5% IN WATER 100 ML IV SCH (04:45)
[2020-04-07] MEDS: SODIUM CHLORIDE 0.9% 1000 ML 1,000 ML IV SCH ×2 (05:10→16:36)
[2020-04-07] MEDS ORDERED: POTASSIUM CHLORIDE 20 MEQ PACKET PO ONE (08:00)
[2020-04-07] MEDS: INSULIN NPH/REGULAR 70/30 INJ SUB-Q SCH ×2 (08:00→16:33)
[2020-04-07] MEDS: INSULIN LISPRO 100 UNIT/ML SUB-Q SCH ×4 (08:05→22:00)
[2020-04-07] MEDS: FAMOTIDINE 20 MG TAB PO SCH ×2 (09:26→21:25)
[2020-04-07] MEDS: levETIRAcetam 500 MG/5 ML ORAL LIQD PO SCH ×2 (09:26→21:25)
[2020-04-07] MEDS: FOLIC ACID 1 MG TAB PO SCH (09:26)
[2020-04-07] MEDS: THIAMINE 100 MG TAB PO SCH (09:26)
[2020-04-07] MEDS: LORazepam 2 MG/ML VIAL IV PRN (18:28)
--- NOTE | 2020-04-07 19:05 | Progress Note ---
Assessment and Plan Assessment and plan: 69 yo female with hx of HTN, alcohol dependence who presents with altered mental status and seizure via EMS. Patient was admitted and managed with [facility] protocols. Significantly improved.Follow PT evaln. and possible DC in 1-2 days if stable. --Hypokalemia; 60 mEq of KCl given Follow electrolytes, magnesium normal range --Metabolic encephalopathy; significantly improved Multifactorial, due to alcohol withdrawal symptoms seizure, electrolyte abnormalities, Patient is more alert and awake but confused at times --Hypomagnesemia; Overcorrected, hold magnesium oxide Monitor levels --Hyponatremia; present on admission Resolved, sodium level today within normal range --Alcohol withdrawal symptoms; Supportive care, [facility] protocol Did not need any Ativan, did not need restraints Physical therapy evaluation in preparation for discharge --Seizure disorder; new onset[probably alcohol-related] New episodes of seizures Seizure precautions, fall precautions Antiepileptic medications, aspiration precautions Neurology following --Type 2 diabetes mellitus; moderate control Accu-Chek sliding scale coverage ADA diet Long-acting insulin as needed, A1c 10.6 Diabetic education, nutrition education when patient is more awake --DVT prophylaxis; Lovenox Monitor closely and adjust management as needed Plan of care reviewed with the patient's nurse History Interval history: Patient seen and examined at the bedside Patient's chart and medical records reviewed Patient is more calm and quiet Confused at times, no tremulousness or agitation Vital signs noted Hospitalist Physical - Constitutional Vitals: Temp Pulse Resp BP Pulse Ox 97.3 F L 103 H 20 155/78 97 04/07/20 15:50 04/07/20 15:50 04/07/20 15:50 04/07/20 15:50 04/07/20 15:50 General appearance: Present: no acute distress, well-nourished, other (Confused no agitation) - EENT Eyes: Present: PERRL, EOM intact - Neck Neck: Present: supple, normal ROM - Respiratory Respiratory effort: normal Respiratory: bilateral: diminished, negative: rales, rhonchi, wheezing - Cardiovascular Rhythm: regular Heart Sounds: Present: S1 & S2 - Extremities Extremities: no ischemia, No edema - Abdominal General gastrointestinal: soft, non-tender, non-distended, normal bowel sounds - Integumentary Integumentary: Present: clear, warm - Psychiatric Psychiatric: cooperative, other (Confused at times) - Neurologic Neurologic: moves all extremities Results - Labs CBC & Chem 7: 04/04/20 01:04/08/20 04:50 Labs: Laboratory Last Values WBC 9.7 K/mm3 (4.5-11.0) 04/04/20 01: RBC 3.61 M/mm3 (3.65-5.03) L 04/04/20 01: Hgb 11.4 gm/dl (10.1-14.3) 04/04/20 01: Hct 34.2 % (30.3-42.9) 04/04/20 01: MCV 95 fl (79-97) 04/04/20 01: MCH 32 pg (28-32) 04/04/20 01: MCHC 33 % (30-34) 04/04/20 01: RDW 12.6 % (13.2-15.2) L 04/04/20 01: Plt Count 185 K/mm3 (140-440) 04/04/20 01: Lymph % (Auto) 15.3 % (13.4-35.0) 04/04/20 01: [place] % (Auto) 8.7 % (0.0-7.3) H 04/04/20 01: Eos % (Auto) 1.4 % (0.0-4.3) 04/04/20 01: Baso % (Auto) 0.8 % (0.0-1.8) 04/04/20 01: Lymph # 1.5 K/mm3 (1.2-5.4) 04/04/20 01: [place] # 0.8 K/mm3 (0.0-0.8) 04/04/20 01: Eos # 0.1 K/mm3 (0.0-0.4) 04/04/20 01: Baso # 0.1 K/mm3 (0.0-0.1) 04/04/20 01: Seg Neutrophils % 73.8 % (40.0-70.0) H 04/04/20 01: Seg Neutrophils # 7.1 K/mm3 (1.8-7.7) 04/04/20 01: PT 14.1 Sec. (12.2-14.9) 04/03/20 16:00 INR 1.11 (0.87-1.13) 04/03/20 16:00 APTT 29.4 Sec. (24.2-36.6) 04/03/20 16:00 Thrombin Time 18.0 Sec. (15.1-19.6) 04/03/20 16:00 Sodium 142 mmol/L (137-145) 04/06/20 04:57 Potassium 2.7 mmol/L (3.6-5.0) L* 04/07/20 04:05 Chloride 106.8 mmol/L (98-107) 04/06/20 04:57 Carbon Dioxide 22 mmol/L (22-30) 04/06/20 04:57 Anion Gap 16 mmol/L 04/06/20 04:57 BUN 7 mg/dL (7-17) 04/06/20 04:57 Creatinine 0.5 mg/dL (0.7-1.2) L 04/06/20 04:57 Estimated GFR > 60 ml/min 04/06/20 04:57 BUN/Creatinine Ratio 14 % 04/06/20 04:57 Glucose 134 mg/dL (65-100) H 04/06/20 04:57 POC Glucose 162 (70-105) H 04/07/20 16:22 Hemoglobin A1c 10.6 % (4-6) H 04/04/20 01:29 Calcium 8.7 mg/dL (8.4-10.2) 04/06/20 04:57 Magnesium 1.90 mg/dL (1.7-2.3) 04/07/20 04:05 Total Bilirubin 0.40 mg/dL (0.1-1.2) 04/04/20 01:29 AST 22 units/L (5-40) 04/04/20 01:29 ALT 11 units/L (7-56) 04/04/20 01:29 Alkaline Phosphatase 115 units/L (35-129) 04/04/20 01:29 Ammonia 52.0 umol/L (25-60) 04/04/20 01:29 Troponin T < 0.010 ng/mL (0.00-0.029) 04/03/20 16:00 Total Protein 6.5 g/dL (6.3-8.2) 04/04/20 01:29 Albumin 2.8 g/dL (3.9-5) L 04/04/20 01:29 Albumin/Globulin Ratio 0.8 % 04/04/20 01:29 Amylase 48 units/L (27-131) 04/04/20 01:29 Lipase 6 units/L (13-60) L 04/04/20 01:29 Plasma/Serum Alcohol < 0.01 % (0-0.07) 04/03/20 18:30 [place]/IV: Voiding Method Incontinent IV Catheter Type [Left Forearm Peripheral IV ] IV Catheter Type [Left Hand] INT / Saline Lock IV Catheter Type [Right Hand] Peripheral IV Active Medications - Current Medications Current Medications: Generic Name Dose Route Start Last Admin Trade Name Freq PRN Reason Stop Dose Admin Acetaminophen 650 mg 04/04/20 00:50 Tylenol PO Q4H PRN Pain MILD(1-3)/Fever >100.5/DENISE Famotidine 20 mg 04/04/20 10:00 04/07/20 09:26 Pepcid PO 20 mg BID JERRY Administration Folic Acid 1 mg 04/05/20 10:00 04/07/20 09:26 Folvite PO 1 mg QDAY JERRY Administration Sodium Chloride 1,000 mls @ 75 mls/hr 04/04/20 01:00 04/07/20 16:36 Nacl 0.9% 1000 Ml IV 75 mls/hr DIRECT JERRY Administration Insulin Human Isoph/Insulin Regular 15 unit 04/04/20 08:00 04/07/20 16:33 Humulin 70/30 SUB-Q 15 unit BIDDIAB JERRY Administration Insulin Human Lispro 0 unit 04/04/20 07:30 04/07/20 16:33 Humalog SUB-Q 2 unit ACHS JERRY Administration Protocol Levetiracetam 750 mg 04/07/20 10:00 04/07/20 09:26 Keppra PO 750 mg BID JERRY Administration Lorazepam 2 mg 04/04/20 00:59 04/04/20 21:35 Ativan PO 2 mg Q1H PRN Administration [facility] 8-15 Lorazepam 4 mg 04/04/20 00:59 04/07/20 18:28 Ativan IV 4 mg Q1H PRN Administration [facility] 16-25 Lorazepam 4 mg 04/04/20 00:59 Ativan IV Q15MIN PRN [facility] >25 Metoclopramide HCl 10 mg 04/04/20 00:50 Reglan IV Q6H PRN Nausea And Vomiting Ondansetron HCl 4 mg 04/04/20 00:50 Zofran IV Q8H PRN Nausea And Vomiting Sodium Chloride 10 ml 04/04/20 10:00 04/07/20 09:27 Sodium Chloride Flush Syringe 10 Ml IV 10 ml BID JERRY Administration Sodium Chloride 10 ml 04/04/20 00:50 Sodium Chloride Flush Syringe 10 Ml IV PRN PRN LINE FLUSH Thiamine HCl 100 mg 04/05/20 10:00 04/07/20 09:26 Vitamin B-1 PO 100 mg QDAY JERRY Administration
--- NOTE | 2020-04-07 20:45 | Event Note ---
Date: 04/07/20 I called patient's son Glenn Pritchard at [phone] and discussed in detail patient's condition Treatment plan, patient's test reports and discharge planning, son had many questions Answered all of them, encouraged him to call back if he has any questions or concerns
[2020-04-08 05:23] LABS: BUN/Creatinine Ratio 20; Blood Urea Nitrogen 10 mg/dL (7-17); Calcium 8.5 mg/dL (8.4-10.2); Hemolysis Index 5
[2020-04-08] MEDS: SODIUM CHLORIDE 0.9% 1000 ML 1,000 ML IV SCH ×2 (05:52→21:49)
[2020-04-08] MEDS: INSULIN NPH/REGULAR 70/30 INJ SUB-Q SCH ×2 (08:00→17:25)
[2020-04-08] MEDS: INSULIN LISPRO 100 UNIT/ML SUB-Q SCH ×4 (10:00→21:48)
[2020-04-08] MEDS ORDERED: POTASSIUM CHLORIDE ER 20 MEQ TAB PO ONE (10:00)
[2020-04-08] MEDS: FAMOTIDINE 20 MG TAB PO SCH ×2 (10:04→21:49)
[2020-04-08] MEDS: THIAMINE 100 MG TAB PO SCH (10:04)
[2020-04-08] MEDS: FOLIC ACID 1 MG TAB PO SCH (10:04)
[2020-04-08] MEDS: METOPROLOL SUCCINATE XL 50 MG TAB PO SCH (10:05)
[2020-04-08] MEDS: ASPIRIN 81 MG TAB CHEW PO SCH (10:05)
[2020-04-08] MEDS: levETIRAcetam 500 MG/5 ML ORAL LIQD PO SCH ×2 (10:05→21:49)
--- NOTE | 2020-04-08 12:02 | Progress Note ---
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 patient is calm and well relaxed without any DT's continue high dose thiamine and B complex vitamins Objective - Vital Sign Vital Signs - 12hr 04/08/20 04/08/20 04/08/20 03:56 06:40 08:26 Temperature 98.7 F 98.6 F Pulse Rate 104 H 98 H Respiratory 20 18 Rate Blood Pressure 152/75 187/109 O2 Sat by Pulse 99 Oximetry 04/08/20 10:05 Temperature Pulse Rate 102 H Respiratory Rate Blood Pressure 172/87 O2 Sat by Pulse Oximetry - Laboratory Findings CBC and BMP: 04/04/20 01:29 04/08/20 04:50 Abnormal Lab Findings: Abnormal Labs 04/03/20 04/03/20 04/03/20 15:56 16:00 16:00 WBC 14.8 H RBC RDW 12.9 L [place] % (Auto) 8.9 H [place] # 1.3 H Seg Neutrophils % Seg Neutrophils # 9.8 H Sodium 136 L Potassium 3.4 L Chloride 95.2 L Carbon Dioxide 18 L Creatinine Glucose 456 H POC Glucose 431 H Hemoglobin A1c Magnesium Albumin Lipase 04/04/20 04/04/20 04/04/20 01:29 01:29 01:29 WBC RBC 3.61 L RDW 12.6 L [place] % (Auto) 8.7 H [place] # Seg Neutrophils % 73.8 H Seg Neutrophils # Sodium Potassium 3.4 L Chloride Carbon Dioxide Creatinine 0.5 L Glucose 354 H POC Glucose Hemoglobin A1c 10.6 H Magnesium Albumin 2.8 L Lipase 04/04/20 04/04/20 04/04/20 01:29 10:21 11:49 WBC RBC RDW [place] % (Auto) [place] # Seg Neutrophils % Seg Neutrophils # Sodium Potassium Chloride Carbon Dioxide Creatinine Glucose POC Glucose 313 H 346 H Hemoglobin A1c Magnesium Albumin Lipase 6 L 04/04/20 04/04/20 04/05/20 17:38 21:49 04:57 WBC RBC RDW [place] % (Auto) [place] # Seg Neutrophils % Seg Neutrophils # Sodium Potassium 3.2 L Chloride Carbon Dioxide Creatinine 0.4 L Glucose 232 H POC Glucose 130 H 238 H Hemoglobin A1c Magnesium Albumin Lipase 04/05/20 04/05/20 04/05/20 07:50 11:08 12:11 WBC RBC RDW [place] % (Auto) [place] # Seg Neutrophils % Seg Neutrophils # Sodium Potassium Chloride Carbon Dioxide Creatinine Glucose POC Glucose 269 H 269 H Hemoglobin A1c Magnesium 1.20 L Albumin Lipase 04/05/20 04/06/20 04/06/20 16:51 01:03 04:57 WBC RBC RDW [place] % (Auto) [place] # Seg Neutrophils % Seg Neutrophils # Sodium Potassium 3.0 L Chloride Carbon Dioxide Creatinine 0.5 L Glucose 134 H POC Glucose 230 H 165 H Hemoglobin A1c Magnesium 3.00 H Albumin Lipase 04/06/20 04/06/20 04/06/20 07:14 11:37 16:27 WBC RBC RDW [place] % (Auto) [place] # Seg Neutrophils % Seg Neutrophils # Sodium Potassium Chloride Carbon Dioxide Creatinine Glucose POC Glucose 131 H 221 H 285 H Hemoglobin A1c Magnesium Albumin Lipase 04/06/20 04/07/20 04/07/20 20:35 04:05 07:26 WBC RBC RDW [place] % (Auto) [place] # Seg Neutrophils % Seg Neutrophils # Sodium Potassium 2.7 L* Chloride Carbon Dioxide Creatinine Glucose POC Glucose 198 H 121 H Hemoglobin A1c Magnesium Albumin Lipase 04/07/20 04/07/20 04/08/20 11:54 16:22 04:50 WBC RBC RDW [place] % (Auto) [place] # Seg Neutrophils % Seg Neutrophils # Sodium 147 H Potassium 3.3 L Chloride 113.5 H Carbon Dioxide Creatinine 0.5 L Glucose POC Glucose 184 H 162 H Hemoglobin A1c Magnesium Albumin Lipase
[2020-04-08] MEDS: QUEtiapine 25 MG TAB PO SCH ×2 (14:15→21:49)
--- NOTE | 2020-04-08 14:46 | Progress Note ---
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, postictal and electrolyte abnormalities, Patient is more alert and awake but very confused all the terms Neurology following, placed on thiamine We will also consult psychiatry /Hypomagnesemia; resolved /Hyponatremia; present on admission, Resolved, sodium level today within normal range /Hypokalemia; continue to replete as needed Follow electrolytes, magnesium normal range /Alcohol withdrawal symptoms; Supportive care, CIWA protocol Did not need any Ativan, patient now unrestrained /Seizure disorder; new onset[probably alcohol-related] New episodes of seizures Seizure precautions, fall precautions Antiepileptic medications, aspiration precautions Neurology following /Type 2 diabetes mellitus; moderate control Accu-Chek sliding scale coverage ADA diet Long-acting insulin as needed, A1c 10.6 Diabetic education, nutrition education when patient is more oriented --DVT prophylaxis; Lovenox Monitor closely and adjust management as needed Plan of care reviewed with the patient's nurse 04/08: Patient is very confused. She does not know where she is and she believes that she killed her mother. Pulled out her lines this morning. Restraint placed. We will continue to follow electrolytes and replace as needed. We will also consult psych. Brief history: 69 yo female with hx of HTN, alcohol dependence who presents with altered mental status and seizure via EMS. Patient was admitted and managed with CIWA protocols. She remains significantly confused. Consulted neurology and psychiatry for further management. Physical exam: General appearance: Present: no acute distress, well-nourished, other (Confused no agitation) - EENT Eyes: Present: PERRL, EOM intact - Neck Neck: Present: supple, normal ROM - Respiratory Respiratory effort: normal Respiratory: bilateral: diminished, negative: rales, rhonchi, wheezing - Cardiovascular Rhythm: regular Heart Sounds: Present: S1 & S2 - Extremities Extremities: no ischemia, No edema - Abdominal General gastrointestinal: soft, non-tender, non-distended, normal bowel sounds - Integumentary Integumentary: Present: clear, warm - Psychiatric Psychiatric: cooperative, other (Confused at times) - Neurologic Neurologic: moves all extremities Subjective Date of service: 04/08/20 Interval history: Patient seen and examined. Medical records and medication list reviewed. No acute event overnight noted by the RN. Patient denies any chest pain or difficulty breathing. Patient is very confused and restrained She pulled out her IV lines this morning Patient stated that " I kill my mother because she kill my dad" Objective - Constitutional Vitals: Vital Signs - 12hr 04/08/20 04/08/20 04/08/20 03:56 06:40 08:26 Temperature 98.7 F 98.6 F Pulse Rate 104 H 98 H Respiratory 20 18 Rate Blood Pressure 152/75 187/109 Blood Pressure [Left] O2 Sat by Pulse 99 Oximetry 04/08/20 04/08/20 10:05 12:31 Temperature 98.6 F Pulse Rate 102 H 82 Respiratory 18 Rate Blood Pressure 172/87 Blood Pressure 198/82 [Left] O2 Sat by Pulse 94 Oximetry - Labs CBC & Chem 7: 04/04/20 01:29 04/10/20 04:21 Labs: Abnormal lab results 04/07/20 04/08/20 Range/Units 16:22 04:50 Sodium 147 H (137-145) mmol/L Potassium 3.3 L (3.6-5.0) mmol/L Chloride 113.5 H (98-107) mmol/L Creatinine 0.5 L (0.7-1.2) mg/dL POC Glucose 162 H (70-105)
[2020-04-08] MEDS: MONTELUKAST 10 MG TAB PO SCH (17:38)
[2020-04-09] MEDS: FAMOTIDINE 20 MG TAB PO SCH ×2 (09:01→23:05)
[2020-04-09] MEDS: THIAMINE 100 MG TAB PO SCH (09:01)
[2020-04-09] MEDS: levETIRAcetam 500 MG/5 ML ORAL LIQD PO SCH ×2 (09:02→23:04)
[2020-04-09] MEDS: ASPIRIN 81 MG TAB CHEW PO SCH (09:03)
[2020-04-09] MEDS: QUEtiapine 25 MG TAB PO SCH ×3 (09:03→23:04)
[2020-04-09] MEDS: FOLIC ACID 1 MG TAB PO SCH (09:03)
[2020-04-09] MEDS: METOPROLOL SUCCINATE XL 50 MG TAB PO SCH (09:04)
[2020-04-09] MEDS: INSULIN NPH/REGULAR 70/30 INJ SUB-Q SCH ×2 (09:06→19:01)
[2020-04-09] MEDS: INSULIN LISPRO 100 UNIT/ML SUB-Q SCH ×4 (09:06→23:05)
--- NOTE | 2020-04-09 09:33 | Consultation ---
History of Present Illness - Reason for Consult Consult date: 04/09/20 Reason for consult: ETOH, Delirium - History of Present Psychiatric Illness The patient's medical record was reviewed and the patient's progress discussed with the nursing staff. Ester Toro is a 69y/o female patient who was found unresponsive, and had a witnessed seizure enroute to the ER per medical record. During my interview with the patient this morning, she is confused. Her thinking is disorganized. She makes fair eye contact. She is in restraints. She is unable to give any insight into her history or what's going on with her. The sitter and nurse are at bedside. The patient states, "I'm from [facility]." She gives this answer after every questioning. She says she slept "great with the new alligator from [place]." When asked about suicidal or homicidal thoughts, she shouts, "no! no, no, no I from the [facility] [place]." She then starts raising he voice, and repeats it again. PAST PSYCHIATRIC HISTORY: Unable to obtain information PAST MEDICAL HISTORY: Unable to obtain Family Psychiatric History: None reported or documented SOCIAL HISTORY Unable to obtain REVIEW OF SYSTEMS Unable to obtain MENTAL STATUS EXAMINATION Unable to obtain Assessment Altered Mental Status Plan Continue CIWA Trazodone 50mg po qhs Depakote DR 125mg po BID Increase Seroquel 50mg po BID Sitter: defer to primary Medical: Per primary Disposition: TBD Will continue to follow. Please call with any questions or concerns. Thank you for this consult. Medications and Allergies Allergies Allergy/AdvReac Type Severity Reaction Status Date / Time No Known Allergies Allergy Unverified 04/05/20 08:38 Home Medications Medication Instructions Recorded Confirmed Last Taken Type Aspirin [Aspirin BABY CHEW TAB] 81 mg PO QDAY 04/05/20 04/05/20 04/04/20 08:00 History Metoprolol Xl [Metoprolol 50 mg PO QDAY 04/05/20 04/05/20 04/04/20 08:00 History SUCCINATE ER TAB] Montelukast [Singulair] 10 mg PO QPM 04/05/20 04/05/20 04/03/20 21:00 History Pantoprazole [Protonix TAB] 20 mg QDAY 04/05/20 04/05/20 04/04/20 08:00 History Active Meds: Active Medications Acetaminophen (Tylenol) 650 mg PO Q4H PRN PRN Reason: Pain MILD(1-3)/Fever >100.5/DENISE Aspirin (Baby Aspirin) 81 mg PO QDAY [facility] Last Admin: 04/09/20 09:03 Dose: 81 mg Documented by: Famotidine (Pepcid) 20 mg PO BID [facility] Last Admin: 04/09/20 09:01 Dose: 20 mg Documented by: Folic Acid (Folvite) 1 mg PO QDAY [facility] Last Admin: 04/09/20 09:03 Dose: 1 mg Documented by: Sodium Chloride (Nacl 0.9% 1000 Ml) 1,000 mls @ 75 mls/hr IV DIRECT [facility] Last Admin: 04/08/20 21:49 Dose: 75 mls/hr Documented by: Insulin Human Isoph/Insulin Regular (Humulin 70/30) 15 unit SUB-Q BIDDIAB [facility] Last Admin: 04/08/20 17:25 Dose: Not Given Documented by: Insulin Human Lispro (Humalog) 0 unit SUB-Q [facility]; Protocol Last Admin: 04/09/20 09:06 Dose: 2 unit Documented by: Levetiracetam (Keppra) 750 mg PO BID [facility] Last Admin: 04/09/20 09:02 Dose: 750 mg Documented by: Lorazepam (Ativan) 2 mg PO Q1H PRN PRN Reason: CIWA-Ar 8-15 Last Admin: 04/04/20 21:35 Dose: 2 mg Documented by: Lorazepam (Ativan) 4 mg IV Q1H PRN PRN Reason: CIWA-Ar 16-25 Last Admin: 04/07/20 18:28 Dose: 4 mg Documented by: Lorazepam (Ativan) 4 mg IV Q15MIN PRN PRN Reason: CIWA-Ar >25 Metoclopramide HCl (Reglan) 10 mg IV Q6H PRN PRN Reason: Nausea And Vomiting Metoprolol Succinate (Metoprolol Xl) 50 mg PO QDAY [facility] Last Admin: 04/09/20 09:04 Dose: 50 mg Documented by: Montelukast Sodium (Singulair) 10 mg PO QPM [facility] Last Admin: 04/08/20 17:38 Dose: 10 mg Documented by: Ondansetron HCl (Zofran) 4 mg IV Q8H PRN PRN Reason: Nausea And Vomiting Quetiapine Fumarate (Seroquel) 25 mg PO BID [facility] Last Admin: 04/09/20 09:03 Dose: 25 mg Documented by: Sodium Chloride (Sodium Chloride Flush Syringe 10 Ml) 10 ml IV BID [facility] Last Admin: 04/08/20 21:49 Dose: 10 ml Documented by: Sodium Chloride (Sodium Chloride Flush Syringe 10 Ml) 10 ml IV PRN PRN PRN Reason: LINE FLUSH Thiamine HCl (Vitamin B-1) 100 mg PO QDAY [facility] Last Admin: 04/09/20 09:01 Dose: 100 mg Documented by: Mental Status Exam - Vital signs Last Vital Signs Temp 98.0 F 04/09/20 08:02 Pulse 104 H 04/09/20 08:02 Resp 20 04/09/20 08:02 BP 178/99 04/09/20 09:04 Pulse Ox 99 04/09/20 08:02 Results Result Diagrams: 04/04/20 01:29 04/08/20 04:50 Abnormal lab results 04/08/20 04/08/20 04/08/20 Range/Units 12:28 17:08 21:22 POC Glucose 284 H 327 H 324 H (70-105) 04/09/20 Range/Units 08:16 POC Glucose 153 H (70-105) All other labs normal.
--- NOTE | 2020-04-09 14:08 | Progress Note ---
Assessment and Plan /Metabolic encephalopathy; alcohol-induced mood disorder? 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, postictal and electrolyte abnormalities, Patient is more alert and awake but very confused all the terms Neurology following, placed on thiamine Consulted psychiatry: Recommended following Continue CIWA Trazodone 50mg po qhs Depakote DR 125mg po BID Increase Seroquel 50mg po BID /Hypomagnesemia; resolved /Hyponatremia; present on admission, Resolved, sodium level today within normal range /Hypokalemia; continue to replete as needed Follow electrolytes, magnesium normal range /Alcohol withdrawal symptoms; Supportive care, CIWA protocol Did not need any Ativan, patient now unrestrained /Seizure disorder; new onset[probably alcohol-related] New episodes of seizures Seizure precautions, fall precautions Antiepileptic medications, aspiration precautions Neurology following /Type 2 diabetes mellitus; moderate control Accu-Chek sliding scale coverage ADA diet Long-acting insulin as needed, A1c 10.6 Diabetic education, nutrition education when patient is more oriented --DVT prophylaxis; Lovenox Monitor closely and adjust management as needed Plan of care reviewed with the patient's nurse 04/08: Patient is very confused. She does not know where she is and she believes that she killed her mother. Pulled out her lines this morning. Restraint placed. We will continue to follow electrolytes and replace as needed. We will also consult psych. 04/09; patient remains very confused and agitated. Psychiatry following continue to manage per psychiatry recommendation. Discharge planning when cleared by psychiatry. Brief history: 69 yo female with hx of HTN, alcohol dependence who presents with altered mental status and seizure via EMS. Patient was admitted and managed with CIWA protocols. She remains significantly confused. Consulted neurology and psychiatry for further management. Physical exam: General appearance: Present: no acute distress, well-nourished, other (Confused no agitation) - EENT Eyes: Present: PERRL, EOM intact - Neck Neck: Present: supple, normal ROM - Respiratory Respiratory effort: normal Respiratory: bilateral: diminished, negative: rales, rhonchi, wheezing - Cardiovascular Rhythm: regular Heart Sounds: Present: S1 & S2 - Extremities Extremities: no ischemia, No edema - Abdominal General gastrointestinal: soft, non-tender, non-distended, normal bowel sounds - Integumentary Integumentary: Present: clear, warm - Psychiatric Psychiatric: cooperative, other (Confused at times) - Neurologic Neurologic: moves all extremities Subjective Date of service: 04/09/20 Interval history: Patient seen and examined. Medical records and medication list reviewed. No acute event overnight noted by the RN. Patient denies any chest pain or difficulty breathing. Patient is very confused and remains restrained Patient is refusing any oral medications Objective - Constitutional Vitals: Vital Signs - 12hr 04/09/20 04/09/20 04/09/20 04:25 06:00 08:02 Temperature 98.5 F 98.0 F Pulse Rate 100 H 103 H 104 H Respiratory 18 20 Rate Blood Pressure 175/95 178/99 Blood Pressure [Left] O2 Sat by Pulse 97 99 Oximetry 04/09/20 04/09/20 09:04 11:00 Temperature 98 F Pulse Rate 102 H Respiratory 20 Rate Blood Pressure 178/99 Blood Pressure 178/102 [Left] O2 Sat by Pulse 99 Oximetry - Labs CBC & Chem 7: 04/04/20 01:29 04/10/20 04:21 Labs: Abnormal lab results 04/08/20 04/08/20 04/08/20 Range/Units 12:28 17:08 21:22 POC Glucose 284 H 327 H 324 H (70-105) 04/09/20 Range/Units 08:16 POC Glucose 153 H (70-105)
[2020-04-09] MEDS: DIVALPROEX DR 125 MG TAB PO SCH ×2 (14:11→23:06)
[2020-04-09] MEDS: hydrALAZINE 20 MG/1 ML INJ IV PRN ×2 (14:55→23:13)
[2020-04-09] MEDS ORDERED: cloNIDine TTS 0.2 MG/24 HR PATCH TD SCH (15:00)
[2020-04-09] MEDS: LORazepam 2 MG/ML VIAL IV PRN ×2 (15:34→23:12)
[2020-04-09] MEDS: traZODone 50 MG TAB PO SCH (23:07)
[2020-04-09] MEDS: SODIUM CHLORIDE 0.9% 1000 ML 1,000 ML IV SCH (23:08)
[2020-04-10 05:04] LABS: BUN/Creatinine Ratio 27; Blood Urea Nitrogen 8 mg/dL (7-17); Hemolysis Index 5
[2020-04-10] MEDS ORDERED: hydrALAZINE 20 MG/1 ML INJ IV ONE (06:08)
[2020-04-10] MEDS: hydrALAZINE 20 MG/1 ML INJ IV PRN ×2 (06:30→16:45)
[2020-04-10] MEDS: INSULIN LISPRO 100 UNIT/ML SUB-Q SCH ×4 (09:07→22:09)
[2020-04-10] MEDS: INSULIN NPH/REGULAR 70/30 INJ SUB-Q SCH ×2 (09:55→17:49)
[2020-04-10] MEDS: levETIRAcetam 500 MG/5 ML ORAL LIQD PO SCH ×2 (09:55→22:08)
[2020-04-10] MEDS: ASPIRIN 81 MG TAB CHEW PO SCH (09:56)
[2020-04-10] MEDS: QUEtiapine 25 MG TAB PO SCH (09:56)
[2020-04-10] MEDS: METOPROLOL SUCCINATE XL 50 MG TAB PO SCH (09:56)
[2020-04-10] MEDS: THIAMINE 100 MG TAB PO SCH (09:56)
[2020-04-10] MEDS: FOLIC ACID 1 MG TAB PO SCH (09:56)
[2020-04-10] MEDS: SODIUM CHLORIDE 0.9% 1000 ML 1,000 ML IV SCH (10:04)
[2020-04-10] MEDS: LORazepam 2 MG TAB PO PRN ×2 (10:04→17:49)
[2020-04-10] MEDS: FAMOTIDINE 20 MG TAB PO SCH ×2 (10:10→22:09)
--- NOTE | 2020-04-10 10:17 | Progress Note ---
Subjective - Reason for Consult Consult date: 04/10/20 Reason for consult: Delirium - Chief Complaint Chief complaint: The patient's medical record was reviewed and the patient's progress discussed with the nursing staff. The nurse note states the patient is in restraints. She was confused, yelling and restless this morning. She was reminded she is in the hospital. During my interview with the patient this morning, she was lying in bed. Awake. She was being fed by the sitter. She is a/o x 1. She is initially calm and cooperative, but becomes irritable. She says she is doing "okay" when asked. She denies SI/HI. When asked about hallucinations, the patient initially stated, "yes." When asking the patient what was it she was hearing or seeing, the patient could not describe or explain. She became irritable and starting shouting, "no, no, no, no" repeatedly. REVIEW OF SYSTEMS Unable to obtain MENTAL STATUS EXAMINATION General Appearance: Dressed appropriately Behavior: cooperative, easily irritated. Mood: "okay" Affect: Restricted Speech: Normal tone and pace Thought Process: Confused Thought Content: Suicidal Ideation: Denies Homicidal Ideation: Denies Hallucinations: Yes Delusions: None elicited Insight and Judgment: Limited Memory/Cognition: Impaired Assessment Alcohol Induced Mood Disorder Plan Continue CIWA Increase Depakote DR 250mg po BID Risperidone 0.5mg po BID d/c Seroquel 50mg po BID Sitter: defer to primary Medical: Per primary Disposition: The patient meets the criteria for inpatient psychiatric treatment. [facility] once medically clear Will continue to follow. Please call with any questions or concerns. Thank you for this consult. Mental Status Exam - Vital signs Last Vital Signs Temp 98.5 F 04/10/20 08:16 Pulse 103 H 04/10/20 08:16 Resp 22 04/10/20 08:16 BP 151/82 04/10/20 08:16 Pulse Ox 100 04/10/20 08:16
[2020-04-10] MEDS ORDERED: DIVALPROEX DR 125 MG TAB PO SCH (10:28)
[2020-04-10] MEDS: DIVALPROEX DR 250 MG TAB PO SCH ×2 (12:01→22:09)
--- NOTE | 2020-04-10 12:26 | Progress Note ---
Assessment and Plan /Metabolic encephalopathy; alcohol-induced mood disorder? 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 meds, cont IV hydralazine as needed and placed on clonidine patch /Hypomagnesemia; resolved /Hyponatremia; present on admission, Resolved, sodium level today within normal range /Hypokalemia; continue to replete as needed Follow electrolytes, magnesium normal range /Alcohol withdrawal symptoms; Supportive care, CIWA protocol Did not need any Ativan, patient now unrestrained /Seizure disorder; new onset[probably alcohol-related] New episodes of seizures Seizure precautions, fall precautions Antiepileptic medications, aspiration precautions Neurology following /Type 2 diabetes mellitus; moderate control Accu-Chek sliding scale coverage ADA diet Long-acting insulin as needed, A1c 10.6 Diabetic education, nutrition education when patient is more oriented --DVT prophylaxis; Lovenox Monitor closely and adjust management as needed Plan of care reviewed with the patient's nurse 04/08: Patient is very confused. She does not know where she is and she believes that she killed her mother. Pulled out her lines this morning. Restraint placed. We will continue to follow electrolytes and replace as needed. We will also consult psych. 04/09; patient remains very confused and agitated. Psychiatry following continue to manage per psychiatry recommendation. Discharge planning when cleared by psychiatry. 04/10: Patient is medically stable. Psychiatry recommended inpatient psych admission. Brief history: 69 yo female with hx of HTN, alcohol dependence who presents with altered mental status and seizure via EMS. Patient was admitted and managed with CIWA protocols. She remains significantly confused. Consulted neurology and psychiatry for further management. Physical exam: General appearance: Present: no acute distress, well-nourished, other (Confused no agitation) - EENT Eyes: Present: PERRL, EOM intact - Neck Neck: Present: supple, normal ROM - Respiratory Respiratory effort: normal Respiratory: bilateral: diminished, negative: rales, rhonchi, wheezing - Cardiovascular Rhythm: regular Heart Sounds: Present: S1 & S2 - Extremities Extremities: no ischemia, No edema - Abdominal General gastrointestinal: soft, non-tender, non-distended, normal bowel sounds - Integumentary Integumentary: Present: clear, warm - Psychiatric Psychiatric: cooperative, other (Confused at times) - Neurologic Neurologic: moves all extremities Subjective Date of service: 04/10/20 Objective - Constitutional Vitals: Vital Signs - 12hr 04/10/20 04/10/20 03:22 08:16 Temperature 97.5 F L 98.5 F Pulse Rate 115 H 103 H Respiratory 18 22 Rate Blood Pressure 196/115 151/82 O2 Sat by Pulse 97 100 Oximetry - Labs CBC & Chem 7: 04/04/20 01:29 04/10/20 04:21 Labs: Abnormal lab results 04/09/20 04/09/20 04/09/20 Range/Units 11:39 16:26 20:42 Sodium (137-145) mmol/L Potassium (3.6-5.0) mmol/L Chloride (98-107) mmol/L Carbon Dioxide (22-30) mmol/L Creatinine (0.7-1.2) mg/dL POC Glucose 250 H 292 H 61 L (70-105) 04/10/20 04/10/20 Range/Units 04:21 11:49 Sodium 147 H (137-145) mmol/L Potassium 3.2 L (3.6-5.0) mmol/L Chloride 111.5 H (98-107) mmol/L Carbon Dioxide 21 L (22-30) mmol/L Creatinine 0.3 L (0.7-1.2) mg/dL POC Glucose 191 H (70-105) HEART Score - HEART Score Troponin: Troponin T < 0.010 ng/mL (0.00-0.029) 04/03/20 16:00
--- NOTE | 2020-04-10 12:29 | Discharge Summary ---
Providers - Providers Date of Admission: 04/03/20 18:34 Date of discharge: 04/10/20 Attending physician: LAUREN BECERRA 04/04/20 00:50 Consult to Physician [CONS] Routine Comment: Consulting Provider: KITTY DESAI Physician Instructions: Reason For Exam: Seizure disorder 04/06/20 18:37 Physical Therapy Evaluation and Treat [CONS] Routine Comment: Reason For Exam: Assessment/DC needs 04/08/20 13:16 Consult to Mental Health [CONS] Routine Reason For Exam: delirium Primary care physician: DAVIDA DAIGLE Hospitalization Condition: Stable Hospital course: 69 yo female with hx of HTN, alcohol dependence who presents with altered mental status and seizure via EMS. Patient was admitted to the hospital, evaluated by neurology, placed on AED, repleted electrolytes and managed with CIWA protocols. She remains significantly confused. Consulted psychiatry for further management. Patient was placed on antipsychotic medications, required restraint and sitter at the bedside. Psychiatry then recommended inpatient psych admission for alcohol induced mood disorder. Patient was then discharged to inpatient psych unit in stable condition. 04/08: Patient is very confused. She does not know where she is and she believes that she killed her mother. Pulled out her lines this morning. Restraint placed. We will continue to follow electrolytes and replace as needed. We will also consult psych. 04/09; patient remains very confused and agitated. Psychiatry following continue to manage per psychiatry recommendation. Discharge planning when cleared by psychiatry. 04/10: Patient is medically stable. Psychiatry recommended inpatient psych admission. Discharge diagnosis and management /Metabolic encephalopathy; alcohol-induced mood disorder? 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 meds, placed on clonidine patch /Hypomagnesemia; resolved /Hyponatremia; present on admission, Resolved, sodium level today within normal range /Hypokalemia; continue to replete as needed Follow electrolytes, magnesium normal range /Alcohol withdrawal symptoms; Supportive care, CIWA protocol Did not need any Ativan, patient now unrestrained /Seizure disorder; new onset[probably alcohol-related] New episodes of seizures Seizure precautions, fall precautions Antiepileptic medications, aspiration precautions Neurology following /Type 2 diabetes mellitus; moderate control Accu-Chek sliding scale coverage ADA diet Long-acting insulin as needed, A1c 10.6 Diabetic education, nutrition education when patient is more oriented --DVT prophylaxis; Lovenox Disposition: Inpatient psych unit Physical exam: General appearance: Present: no acute distress, well-nourished, other (Confused no agitation) - EENT Eyes: Present: PERRL, EOM intact - Neck Neck: Present: supple, normal ROM - Respiratory Respiratory effort: normal Respiratory: bilateral: diminished, negative: rales, rhonchi, wheezing - Cardiovascular Rhythm: regular Heart Sounds: Present: S1 & S2 - Extremities Extremities: no ischemia, No edema - Abdominal General gastrointestinal: soft, non-tender, non-distended, normal bowel sounds - Integumentary Integumentary: Present: clear, warm - Psychiatric Psychiatric: cooperative, other (Confused at times) - Neurologic Neurologic: moves all extremities Disposition: DC/TX-65 PSY HOSP/PSY UNIT Time spent for discharge: 34 minutes Core Measure Documentation - Palliative Care Palliative Care/ Comfort Measures: Not Applicable - Core Measures Any of the following diagnoses?: none Exam - Constitutional Vitals: Temp Pulse Resp BP Pulse Ox 98.5 F 103 H 22 151/82 100 04/10/20 08:16 04/10/20 08:16 04/10/20 08:16 04/10/20 08:16 04/10/20 08:16 Plan Activity: advance as tolerated Weight Bearing Status: Weight Bear as Tolerated Diet: low fat, low salt Special Instructions: record daily BP diary Additional Instructions: repeat BMP q72h Follow up with: DAVIDA DAIGLE MD [Primary Care Provider] - 7 Days Prescriptions: Potassium Chloride [K-Dur] 20 meq PO QDAY #3 tablet
[2020-04-10] MEDS ORDERED: cloNIDine TTS 0.2 MG/24 HR PATCH TD SCH (12:33)
[2020-04-10] MEDS ORDERED: POTASSIUM CHLORIDE ER 20 MEQ TAB PO ONE (13:00)
[2020-04-10] MEDS ORDERED: cloNIDine TTS 0.3 MG/24 HR PATCH TD SCH (14:00)
[2020-04-10] MEDS: DIVALPROEX DR 125 MG TAB PO SCH (16:50)
[2020-04-10] MEDS: MONTELUKAST 10 MG TAB PO SCH (17:49)
[2020-04-10 20:01] VITALS: BP 151/77
[2020-04-10] MEDS ORDERED: risperiDONE 0.25 MG TAB PO SCH (22:00)
[2020-04-10] MEDS: traZODone 50 MG TAB PO SCH (22:08)
== END 2020-04-10 22:55 | DRG 896 ==
LOC: ED 15:38 → 4A 18:34
PROVIDERS: ADMIT Internal Medicine; ATTEND Internal Medicine
DX: F10.239 Alcohol dependence with withdrawal, unspecified (principal); G93.41 Metabolic encephalopathy; E87.1 Hypo-osmolality and hyponatremia; G40.901 Epilepsy, unspecified, not intractable, with status epilepticus; E87.6 Hypokalemia; I10 Essential (primary) hypertension; E11.9 Type 2 diabetes mellitus without complications; E83.42 Hypomagnesemia; Y90.9 Presence of alcohol in blood, level not specified
CPT/HCPCS: 36415; 70450; 80048; 80053; 80320; 82140; 82150; 82962; 83036; 83690; 83735; 84132; 84484; 85025; 85610; 85670; 85730; 93005; G0378; G0480; J0360; J1815; J1953; J2060; J3475; J7030

== ENCOUNTER 2020-04-10 16:46 | Inpatient (IN) | payer MEDICARE ==
[2020-04-10] MEDS ORDERED: LORazepam 2 MG TAB PO PRN (23:41)
[2020-04-11] MEDS: risperiDONE 0.25 MG TAB PO SCH ×3 (00:04→21:33)
[2020-04-11] MEDS: traZODone 50 MG TAB PO SCH ×2 (00:05→21:31)
[2020-04-11] MEDS: DIVALPROEX DR 250 MG TAB PO SCH ×3 (00:05→21:31)
[2020-04-11] MEDS: levETIRAcetam 500 MG/5 ML ORAL LIQD PO SCH ×3 (02:36→21:32)
[2020-04-11 05:51] LABS: Basophils # (Auto) 0.1 K/mm3 (0.0-0.1); Eosinophils # (Auto) 0.6 K/mm3 (0.0-0.4); Eosinophils % (Auto) 6.1 % (0.0-4.3); Hematocrit 31.9 % (30.3-42.9); Hemoglobin 10.4 gm/dl (10.1-14.3); Lymphocytes # (Auto) 1.7 K/mm3 (1.2-5.4); Lymphocytes % (Auto) 18.2 % (13.4-35.0); Mean Corpuscular HGB Conc 33 % (30-34); Mean Corpuscular Volume 94 fl (79-97); Monocytes # (Auto) 0.9 K/mm3 (0.0-0.8); Monocytes % (Auto) 9.6 % (0.0-7.3); Platelet Count 227 K/mm3 (140-440); Red Blood Count 3.41 M/mm3 (3.65-5.03); Red Cell Distribution Width 12.7 % (13.2-15.2)
[2020-04-11 06:11] LABS: Alanine Aminotransferase 7 units/L (7-56); Albumin 2.1 g/dL (3.9-5); BUN/Creatinine Ratio 18; Blood Urea Nitrogen 9 mg/dL (7-17); Calcium 8.4 mg/dL (8.4-10.2); Hemolysis Index 24; LDL Cholesterol,Direct 67 mg/dL (50-130)
--- NOTE | 2020-04-11 06:45 | History and Physical Report ---
GP History & Physical - History of Present Illness Date of admission: 04/10/20 Date of Examination: 04/11/20 Reason for Admission: Danger to self, Danger to others Chief Complaint: AMS History of Present Illness: Per ED note: Mrs. Toro is a 69 yo female with hx of HTN, alcohol dependence who presents with altered mental status and seizure via EMS. Unclear last drink of alcohol. Hx obtained from son Glenn [phone], Son saw his mother in bed around 11 AM. She appears drunk according to son. She normally drink alcohol all day. Alcohol intake greatly increased after the of her boyfr celi 3-4 years ago. No previous hx of seizure. Another family member noticed that she was walking in a day. She then sat down and just stared off. EMS witnessed two seizures en route. ON arrival, patient has facial twitching and eye deviation. She is nonverbal. PSYCH HPI Patient seen in common room, has been loud and talkative uttering random incoherent and incomplete sentences including calling out names of other aptient. Patient is confused, but no physical aggressive or combativeness observed while talking to her. PAST PSYCHIATRIC HISTORY: Diagnoses: Not accessible Suicide attempts or Self-harm behavior: Not accessible Prior psychiatric hospitalizations: Not accessible Substance Abuse history: Not accessible Previous psychiatric medications tried: Not accessible Outpatient treatment: Not accessible PAST MEDICAL HISTORY: Seizure Family Psychiatric History: None reported or documented SOCIAL HISTORY Marital Status: single Living Arrangements: Not accessible Employment Status: Not accessible Access to guns/weapons: Not accessible Education: Not accessible History of Abuse: Not accessible Legal History: Not accessible REVIEW OF SYSTEMS ROS cannot be reliably obtained from the patient due to her confusion MENTAL STATUS EXAMINATION General Appearance and Behavior: Note Age appropriate,fair hygiene, wearing appropriate clothes, poor eye contact and uncooperative Cooperation: Withdrawn Psychomotor Behavior: unremarkable and within normal limits Mood: Not accessible Affect and affective range:elated and euthymic Thought Process: Tangential, fragmnented and loose Thought Content: Illogical and confused Speech: loud volume, difficulty to understand, abnormalities in production of speech, confused and blocking Intellectual Functioning: Fair Suicidal Ideation: Not accessible Homicidal Ideation: Not accessible Impulse Control: Impaired/Unimpaired Insight and Judgment: Impaired Memory: Not accessible Attention: Divided attention intact and Divided attention impaired Orientation: Alert non oriented and confused Assessment and Plan - Psychiatric problem (1) Substance induced mood disorder Current Visit: Yes Status: Acute (2) Substance use disorder Current Visit: Yes Status: Acute (3) Severe manic bipolar 1 disorder with psychotic behavior Current Visit: Yes Status: Acute (4) Major depressive disorder, recurrent, severe with psychotic features Current Visit: Yes Status: Acute Physician Certification Treatment Plan Patient will be admitted for inpatient psychiatric evaluation, medication adjustment and close monitoring The patient's behavior, mood, sleep and appetite will be closely monitored. Patient will be enrolled in individual and group therapeutic sessions and encouraged to attend. Patient will be provided with a safe and structured environment. Patient's physical health needs will be addressed by the Hospitalist. Hospitalist Consulted Labs including CBC, CMP, Lipid profile and Hemoglobin A1C ordered Social Assessment will be completed and the [facility] will work with patient and family to ensure a suitable and safe disposition Medication adjustment: Klonopin .5 BID Usual Wellness Yazdanism/Preservation: - Start Trazodone 50 mg po QHS & 50 mg po QHS PRN between 10 PM & 2 AM for insomnia - Start Melatonin 5 mg po QHS to promote circadian rhythm - Start [place]-3 for brain health, reduce impulsivity, and as adjunctive treatment for mood disorder, continue upon discharge given overall benefits. - Start B1 prophylaxis with 200 mg po for 5 days The patient agreed on the treatment plan, understood the risk, benefit, alternative treatment, potential consequence of no treatment, and gave informed consent. This is an acknowledgement statement that BLANCA TORO is a 69 year old F who requires inpatient psychiatric admission for treatment which could reasonably be expected to improve the patient's condition for Estimated period of time patient will need to remain in the hospital: [ 7] Plan for post-hospital care: [ outpatient] Legal Status: Voluntary Patient Problems: Current Active Problems Major depressive disorder, recurrent, severe with psychotic features (Acute) Severe manic bipolar 1 disorder with psychotic behavior (Acute) Substance induced mood disorder (Acute) Substance use disorder (Acute) Medications and Allergies Allergies Allergy/AdvReac Type Severity Reaction Status Date / Time No Known Allergies Allergy Unverified 04/05/20 08:38 Home Medications Medication Instructions Recorded Confirmed Last Taken Type Aspirin [Aspirin BABY CHEW TAB] 81 mg PO QDAY 04/05/20 04/11/20 04/04/20 08:00 History Montelukast [Singulair] 10 mg PO QPM 04/05/20 04/11/20 04/03/20 21:[address] [Depakote Dr] 250 mg PO BID tablet 04/10/20 04/11/20 Unknown Rx Folic Acid [Folvite] 1 mg PO QDAY tablet 04/10/20 04/11/20 Unknown Rx Insulin NPH/Regular [NovoLIN 70/30] 15 unit SUB-Q BIDDIAB units 04/10/20 04/11/20 Unknown Rx Potassium Chloride [K-Dur] 20 meq PO QDAY #3 tablet 04/10/20 04/11/20 Unknown Rx Thiamine [Vitamin B-1] 100 mg PO QDAY tablet 04/10/20 04/11/20 Unknown Rx cloNIDine-TTS PATCH [Catapres-Tts 0.3 mg TD We patch 04/10/20 04/11/20 Unknown Rx 0.2mg Patch] levETIRAcetam [Keppra] 750 mg PO BID oral.liqd 04/10/20 04/11/20 Unknown Rx risperiDONE [RisperDAL] 0.5 mg PO BID tablet 04/10/20 04/11/20 Unknown Rx traZODone [Desyrel] 50 mg PO QHS tablet 04/10/20 04/11/20 Unknown Rx Active Meds: Active Medications Aspirin (Baby Aspirin) 81 mg PO QDAY JERRY Clonidine HCl (Catapres-Tts Patch) 0.3 mg TD We JERRY Divalproex Sodium (Dagote Dr) 250 mg PO BID [facility] Last Admin: 04/11/20 00:05 Dose: 250 mg Documented by: Folic Acid (Folvite) 1 mg PO QDAY [facility] Insulin Human Isoph/Insulin Regular (Humulin 70/30) 15 unit SUB-Q BIDDIAB [facility] Levetiracetam (Keppra) 750 mg PO BID [facility] Last Admin: 04/11/20 02:36 Dose: Not Given Documented by: Lorazepam (Ativan) 2 mg PO Q6H PRN PRN Reason: Agitation Last Admin: 04/11/20 00:13 Dose: 2 mg Documented by: Montelukast Sodium (Singulair) 10 mg PO QPM JERRY Potassium Chloride (K-Dur) 20 meq PO QDAY [facility] Risperidone (Risperdal) 0.5 mg PO BID [facility] Last Admin: 04/11/20 00:04 Dose: 0.5 mg Documented by: Thiamine HCl (Vitamin B-1) 100 mg PO QDAY JERRY Trazodone HCl (Desyrel) 50 mg PO QHS JERRY Last Admin: 04/11/20 00:05 Dose: 50 mg Documented by: Results - Results Labs/Vitals: Laboratory Last Values WBC 9.6 K/mm3 (4.5-11.0) 04/11/20 05:35 RBC 3.41 M/mm3 (3.65-5.03) L 04/11/20 05:35 Hgb 10.4 gm/dl (10.1-14.3) 04/11/20 05:35 Hct 31.9 % (30.3-42.9) 04/11/20 05:35 MCV 94 fl (79-97) 04/11/20 05:35 MCH 31 pg (28-32) 04/11/20 05:35 MCHC 33 % (30-34) 04/11/20 05:35 RDW 12.7 % (13.2-15.2) L 04/11/20 05:35 Plt Count 227 K/mm3 (140-440) 04/11/20 05:35 Lymph % (Auto) 18.2 % (13.4-35.0) 04/11/20 05:35 [place] % (Auto) 9.6 % (0.0-7.3) H 04/11/20 05:35 Eos % (Auto) 6.1 % (0.0-4.3) H 04/11/20 05:35 Baso % (Auto) 1.0 % (0.0-1.8) 04/11/20 05:35 Lymph # 1.7 K/mm3 (1.2-5.4) 04/11/20 05:35 [place] # 0.9 K/mm3 (0.0-0.8) H 04/11/20 05:35 Eos # 0.6 K/mm3 (0.0-0.4) H 04/11/20 05:35 Baso # 0.1 K/mm3 (0.0-0.1) 04/11/20 05:35 Seg Neutrophils % 65.1 % (40.0-70.0) 04/11/20 05:35 Seg Neutrophils # 6.2 K/mm3 (1.8-7.7) 04/11/20 05:35 Sodium 144 mmol/L (137-145) 04/11/20 05:35 Potassium 3.9 mmol/L (3.6-5.0) D 04/11/20 05:35 Chloride 111.3 mmol/L (98-107) H 04/11/20 05:35 Carbon Dioxide 23 mmol/L (22-30) 04/11/20 05:35 Anion Gap 14 mmol/L 04/11/20 05:35 BUN 9 mg/dL (7-17) 04/11/20 05:35 Creatinine 0.5 mg/dL (0.7-1.2) L D 04/11/20 05:35 Estimated GFR > 60 ml/min 04/11/20 05:35 BUN/Creatinine Ratio 18 % 04/11/20 05:35 Glucose 150 mg/dL (65-100) H 04/11/20 05:35 Hemoglobin A1c 10.9 % (4-6) H 04/11/20 05:35 Calcium 8.4 mg/dL (8.4-10.2) 04/11/20 05:35 Total Bilirubin 0.20 mg/dL (0.1-1.2) 04/11/20 05:35 AST 17 units/L (5-40) 04/11/20 05:35 ALT 7 units/L (7-56) 04/11/20 05:35 Alkaline Phosphatase 77 units/L (35-129) 04/11/20 05:35 Total Protein 5.5 g/dL (6.3-8.2) L 04/11/20 05:35 Albumin 2.1 g/dL (3.9-5) L 04/11/20 05:35 Albumin/Globulin Ratio 0.6 % 04/11/20 05:35 Triglycerides 73 mg/dL (2-149) 04/11/20 05:35 Cholesterol 122 mg/dL (50-199) 04/11/20 05:35 LDL Cholesterol Direct 67 mg/dL (50-130) 04/11/20 05:35 Assessment and Plan - Psychiatric problem (1) Substance induced mood disorder Current Visit: Yes Status: Acute (2) Substance use disorder Current Visit: Yes Status: Acute (3) Severe manic bipolar 1 disorder with psychotic behavior Current Visit: Yes Status: Acute (4) Major depressive disorder, recurrent, severe with psychotic features Current Visit: Yes Status: Acute Physician Certification - Certification Statement Physician Certification Statement: This is an acknowledgement statement that BLANCA TORO is a 69 year old F who requires inpatient psychiatric admission for treatment which could reasonably be expected to improve the patient's condition for Estimated period of time patient will need to remain in the hospital: [ ] Plan for post-hospital care: [ ]
[2020-04-11 06:49] LABS: Chol/HDL Ratio 2.65 %; HDL Cholesterol 46 mg/dL (40-59)
[2020-04-11] MEDS ORDERED: POTASSIUM CHLORIDE ER 20 MEQ TAB PO SCH (10:00)
[2020-04-11] MEDS: THIAMINE 100 MG TAB PO SCH (11:16)
[2020-04-11] MEDS: ASPIRIN 81 MG TAB CHEW PO SCH (11:16)
[2020-04-11] MEDS: FOLIC ACID 1 MG TAB PO SCH (11:17)
[2020-04-11] MEDS: OMEGA-3 FATTY ACIDS/FISH OIL 1 GRAM CAP PO SCH ×2 (11:32→21:31)
[2020-04-11] MEDS: clonazePAM 0.5 MG TAB PO SCH ×2 (11:32→21:32)
[2020-04-11] MEDS: INSULIN NPH/REGULAR 70/30 INJ SUB-Q SCH ×2 (11:34→18:40)
--- NOTE | 2020-04-11 11:53 | Consultation ---
History of Present Illness - Reason for Consult Consult date: 04/11/20 medical mx - History of Present Illness 69 yo female with hx of HTN, alcohol dependence who presented to [facility] ER with altered mental status and seizure via EMS. Patient was admitted to the hospital, evaluated by neurology, placed on AED, repleted electrolytes and managed with [facility] protocols. She remained significantly confused. Consulted psychiatry for further management. Patient was placed on antipsychotic medications, required restraint and sitter at the bedside. Psychiatry then recommended inpatient psych admission for alcohol induced mood disorder. Patient was then discharged to inpatient psych unit in stable condition. Patient now admitted to inpatient psych unit and hospitalist service has been requested for medical management. Patient remains pleasantly confused with out any complaints of chest pain shortness of breath. Per RN she is eating good and no issue at night with sleeping. Past medical history: Hypertension diabetes, GERD and seizure Social history: Does not smoke history of alcohol abuse Family history: Hypertension Surgical history. Unknown Review of System: Unobtainable due to patient's confusion Medications and Allergies Allergies Allergy/AdvReac Type Severity Reaction Status Date / Time No Known Allergies Allergy Unverified 04/05/20 08:38 Home Medications Medication Instructions Recorded Confirmed Last Taken Type Aspirin [Aspirin BABY CHEW TAB] 81 mg PO QDAY 04/05/20 04/11/20 04/04/20 08:00 History Montelukast [Singulair] 10 mg PO QPM 04/05/20 04/11/20 04/03/20 21:[address] [Depakote Dr] 250 mg PO BID tablet 04/10/20 04/11/20 Unknown Rx Folic Acid [Folvite] 1 mg PO QDAY tablet 04/10/20 04/11/20 Unknown Rx Insulin NPH/Regular [NovoLIN 70/30] 15 unit SUB-Q BIDDIAB units 04/10/20 04/11/20 Unknown Rx Potassium Chloride [K-Dur] 20 meq PO QDAY #3 tablet 04/10/20 04/11/20 Unknown Rx Thiamine [Vitamin B-1] 100 mg PO QDAY tablet 04/10/20 04/11/20 Unknown Rx cloNIDine-TTS PATCH [Catapres-Tts 0.3 mg TD We patch 04/10/20 04/11/20 Unknown Rx 0.2mg Patch] levETIRAcetam [Keppra] 750 mg PO BID oral.liqd 04/10/20 04/11/20 Unknown Rx risperiDONE [RisperDAL] 0.5 mg PO BID tablet 04/10/20 04/11/20 Unknown Rx traZODone [Desyrel] 50 mg PO QHS tablet 04/10/20 04/11/20 Unknown Rx Active Meds: Active Medications Aspirin (Baby Aspirin) 81 mg PO QDAY [facility] Last Admin: 04/11/20 11:16 Dose: 81 mg Documented by: Clonazepam (Klonopin) 0.5 mg PO BID [facility] Last Admin: 04/11/20 11:32 Dose: 0.5 mg Documented by: Clonidine HCl (Catapres-Tts Patch) 0.3 mg TD We [facility] Divalproex Sodium (Depakote Dr) 250 mg PO BID [facility] Last Admin: 04/11/20 11:16 Dose: 250 mg Documented by: Fish Oil (Fish Oil) 2,000 mg PO BID [facility] Last Admin: 04/11/20 11:32 Dose: 2,000 mg Documented by: Folic Acid (Folvite) 1 mg PO QDAY [facility] Last Admin: 04/11/20 11:17 Dose: 1 mg Documented by: Insulin Human Isoph/Insulin Regular (Humulin 70/30) 15 unit SUB-Q BIDDIAB [facility] Last Admin: 04/11/20 11:34 Dose: 15 unit Documented by: Levetiracetam (Keppra) 750 mg PO BID [facility] Last Admin: 04/11/20 11:15 Dose: 750 mg Documented by: Lorazepam (Ativan) 2 mg PO Q6H PRN PRN Reason: Agitation Last Admin: 04/11/20 00:13 Dose: 2 mg Documented by: Montelukast Sodium (Singulair) 10 mg PO QPM [facility] Risperidone (Risperdal) 0.5 mg PO BID [facility] Last Admin: 04/11/20 11:16 Dose: 0.5 mg Documented by: Thiamine HCl (Vitamin B-1) 100 mg PO QDAY [facility] Last Admin: 04/11/20 11:16 Dose: 100 mg Documented by: Trazodone HCl (Desyrel) 50 mg PO QHS [facility] Last Admin: 04/11/20 00:05 Dose: 50 mg Documented by: Exam - Physical Exam Narrative exam: GENERAL: well-developed and well-nourished AAF appeared to be in no discomfort. HEENT: Normocephalic. Atraumatic. No conjunctival congestion or icterus. Patient has moist mucous membranes. NECK: Supple. Trachea midline. CHEST/LUNGS: Clear to auscultated bilaterally, breathing nonlabored. No wheezes crackles or rhonchi. HEART/CARDIOVASCULAR: Regular in rate and rhythm. S1 and S2 positive. ABDOMEN: Abdomen is soft, nontender. Patient has normal bowel sounds. SKIN: There is no rash. Warm and dry. NEURO: No focal motor deficit. Follows command. MUSCULOSKELETAL: No joint effusion or tenderness. EXTRIMITY: No edema, no cyanosis or clubbing. PSYCH: confused. - Constitutional Vitals: Temp Pulse Resp BP Pulse Ox 98.3 F 107 H 18 118/65 98 04/11/20 10:52 04/11/20 10:52 04/11/20 10:52 04/11/20 10:52 04/11/20 10:52 Results - Labs CBC & Chem 7: 04/11/20 05:35 04/11/20 05:35 Labs: Abnormal lab results 04/11/20 04/11/20 04/11/20 Range/Units 05:35 05:35 05:35 RBC 3.41 L (3.65-5.03) M/mm3 RDW 12.7 L (13.2-15.2) % [place] % (Auto) 9.6 H (0.0-7.3) % Eos % (Auto) 6.1 H (0.0-4.3) % [place] # 0.9 H (0.0-0.8) K/mm3 Eos # 0.6 H (0.0-0.4) K/mm3 Chloride 111.3 H (98-107) mmol/L Creatinine 0.5 L D (0.7-1.2) mg/dL Glucose 150 H (65-100) mg/dL Hemoglobin A1c 10.9 H (4-6) % Total Protein 5.5 L (6.3-8.2) g/dL Albumin 2.1 L (3.9-5) g/dL Assessment and Plan Alcohol induced mood disorder/Wernicke Korsakoff syndrome, -Management per primary Hypertension stable continue current medications Seizure disorder, continue AED Diabetes mellitus type 2, A1c 10.6 -Continue long-acting insulin and SSI with consistent carb diet DVT prophylaxis, ambulatory -Patient appears medically stable, continue current management -Please call us back with any further question or concern
[2020-04-11] MEDS: MONTELUKAST 10 MG TAB PO SCH (18:35)
[2020-04-11] MEDS: INSULIN REGULAR, HUMAN 100 UNITS/1 ML SUB-Q SCH ×2 (18:36→22:28)
--- NOTE | 2020-04-12 06:48 | Progress Note ---
Subjective Date of service: 04/12/20 Principal diagnosis: Severe manic bipolar 1 disorder with psychotic behavior Subjective Comment: Per Nurse: pt is alert and oriented to person, confused, disorganized thought process, loose association and flat of affect, medication compliant, ate 50% of snack, no agitation, total care, no seizure activity this shift, no distress noted, will continue to monitor for safety, safety maintained Psych Progress Ms Norman was found in bed today awake, states she is feeling fine this morning, reported that her sleep was okay, when asked what I ate was patient reports that she is 28, stating that she is here for relaxation. Attempt to access patient mental wellbeing was interuptted by patient as she kept repeating her age with different values consecutively. Incident: Patient was said to be non ambulatory, while interviewing another patient, patient was found in hallway with a staggered movement before falling and bumping head posteriorly on the side prison down. Tech alerted to contact nurse. MENTAL STATUS EXAMINATION General Appearance and Behavior: Note Age appropriate,fair hygiene, wearing appropriate clothes, poor eye contact and uncooperative Cooperation: Withdrawn Psychomotor Behavior: unremarkable and within normal limits Mood: Not accessible Affect and affective range:elated and euthymic Thought Process: Tangential, fragmented and loose Thought Content: Illogical and confused Speech: loud volume, difficulty to understand, abnormalities in production of speech, confused and blocking Intellectual Functioning: Fair Suicidal Ideation: Not accessible Homicidal Ideation: Not accessible Impulse Control: Impaired/Unimpaired Insight and Judgment: Impaired Memory: Not accessible Attention: Divided attention intact and Divided attention impaired Orientation: Alert non oriented and confused Assessment and Plan - Psychiatric problem (1) Substance induced mood disorder Current Visit: Yes Status: Acute (2) Substance use disorder Current Visit: Yes Status: Acute (3) Severe manic bipolar 1 disorder with psychotic behavior Current Visit: Yes Status: Acute (4) Major depressive disorder, recurrent, severe with psychotic features Current Visit: Yes Status: Acute Physician Certification Treatment Plan Patient will be admitted for inpatient psychiatric evaluation, medication adjustment and close monitoring The patient's behavior, mood, sleep and appetite will be closely monitored. Patient will be enrolled in individual and group therapeutic sessions and encouraged to attend. Patient will be provided with a safe and structured environment. Patient's physical health needs will be addressed by the Hospitalist. Hospitalist Consulted Labs including CBC, CMP, Lipid profile and Hemoglobin A1C ordered Social Assessment will be completed and the Lottery Clerk will work with patient and family to ensure a suitable and safe disposition Medication adjustment: Check Valproate levels, switched to liquid valproate, increase risperidone to 1mg BID. Klonopin .5 BID Usual Wellness Episcopal/Preservation: - Start Trazodone 50 mg po QHS & 50 mg po QHS PRN between 10 PM & 2 AM for insomnia - Start Melatonin 5 mg po QHS to promote circadian rhythm - Start [place]-3 for brain health, reduce impulsivity, and as adjunctive treatment for mood disorder, continue upon discharge given overall benefits. - Start B1 prophylaxis with 200 mg po for 5 days The patient agreed on the treatment plan, understood the risk, benefit, alternative treatment, potential consequence of no treatment, and gave informed consent. This is an acknowledgement statement that BLANCA ANTOINE is a 69 year old F who requires inpatient psychiatric admission for treatment which could reasonably be expected to improve the patient's condition for Estimated period of time patient will need to remain in the hospital: [ 6] Plan for post-hospital care: [ outpatient] Assessment and Plan - Patient Problems (1) Substance induced mood disorder Current Visit: Yes Status: Acute (2) Substance use disorder Current Visit: Yes Status: Acute (3) Severe manic bipolar 1 disorder with psychotic behavior Current Visit: Yes Status: Acute (4) Major depressive disorder, recurrent, severe with psychotic features Current Visit: Yes Status: Acute Medications and Allergies Allergies Allergy/AdvReac Type Severity Reaction Status Date / Time No Known Allergies Allergy Unverified 04/05/20 08:38 Home Medications Medication Instructions Recorded Confirmed Last Taken Type Aspirin [Aspirin BABY CHEW TAB] 81 mg PO QDAY 04/05/20 04/11/20 04/04/20 08:00 History Montelukast [Singulair] 10 mg PO QPM 04/05/20 04/11/20 04/03/20 21:[address] [Depakote Dr] 250 mg PO BID tablet 04/10/20 04/11/20 Unknown Rx Folic Acid [Folvite] 1 mg PO QDAY tablet 04/10/20 04/11/20 Unknown Rx Insulin NPH/Regular [NovoLIN 70/30] 15 unit SUB-Q BIDDIAB units 04/10/20 04/11/20 Unknown Rx Potassium Chloride [K-Dur] 20 meq PO QDAY #3 tablet 04/10/20 04/11/20 Unknown Rx Thiamine [Vitamin B-1] 100 mg PO QDAY tablet 04/10/20 04/11/20 Unknown Rx cloNIDine-TTS PATCH [Catapres-Tts 0.3 mg TD We patch 04/10/20 04/11/20 Unknown Rx 0.2mg Patch] levETIRAcetam [Keppra] 750 mg PO BID oral.liqd 04/10/20 04/11/20 Unknown Rx risperiDONE [RisperDAL] 0.5 mg PO BID tablet 04/10/20 04/11/20 Unknown Rx traZODone [Desyrel] 50 mg PO QHS tablet 04/10/20 04/11/20 Unknown Rx Active Meds: Active Medications Aspirin (Baby Aspirin) 81 mg PO QDAY [facility] Last Admin: 04/11/20 11:16 Dose: 81 mg Documented by: Clonazepam (Klonopin) 0.5 mg PO BID [facility] Last Admin: 04/11/20 21:32 Dose: 0.5 mg Documented by: Clonidine HCl (Catapres-Tts Patch) 0.3 mg TD We [facility] Divalproex Sodium (Depakote Dr) 250 mg PO BID [facility] Last Admin: 04/11/20 21:31 Dose: 250 mg Documented by: Fish Oil (Fish Oil) 2,000 mg PO BID [facility] Last Admin: 04/11/20 21:31 Dose: 2,000 mg Documented by: Folic Acid (Folvite) 1 mg PO QDAY [facility] Last Admin: 04/11/20 11:17 Dose: 1 mg Documented by: Insulin Human Isoph/Insulin Regular (Humulin 70/30) 18 unit SUB-Q BIDDIAB [facility] Last Admin: 04/11/20 18:40 Dose: 18 unit Documented by: Insulin Human Regular (Humulin R) 0 units SUB-Q [facility]; Protocol Last Admin: 04/11/20 22:28 Dose: 3 units Documented by: Levetiracetam (Keppra) 750 mg PO BID [facility] Last Admin: 04/11/20 21:32 Dose: 750 mg Documented by: Lorazepam (Ativan) 2 mg PO Q6H PRN PRN Reason: Agitation Last Admin: 04/11/20 00:13 Dose: 2 mg Documented by: Montelukast Sodium (Singulair) 10 mg PO QPM [facility] Last Admin: 04/11/20 18:35 Dose: 10 mg Documented by: Risperidone (Risperdal) 0.5 mg PO BID [facility] Last Admin: 04/11/20 21:33 Dose: 0.5 mg Documented by: Thiamine HCl (Vitamin B-1) 100 mg PO QDAY [facility] Last Admin: 04/11/20 11:16 Dose: 100 mg Documented by: Trazodone HCl (Desyrel) 50 mg PO QHS [facility] Last Admin: 04/11/20 21:31 Dose: 50 mg Documented by: Results - Results Labs/Vitals: Laboratory Last Values WBC 9.6 K/mm3 (4.5-11.0) 04/11/20 05:35 RBC 3.41 M/mm3 (3.65-5.03) L 04/11/20 05:35 Hgb 10.4 gm/dl (10.1-14.3) 04/11/20 05:35 Hct 31.9 % (30.3-42.9) 04/11/20 05:35 MCV 94 fl (79-97) 04/11/20 05:35 MCH 31 pg (28-32) 04/11/20 05:35 MCHC 33 % (30-34) 04/11/20 05:35 RDW 12.7 % (13.2-15.2) L 04/11/20 05:35 Plt Count 227 K/mm3 (140-440) 04/11/20 05:35 Lymph % (Auto) 18.2 % (13.4-35.0) 04/11/20 05:35 [place]ie % (Auto) 9.6 % (0.0-7.3) H 04/11/20 05:35 Eos % (Auto) 6.1 % (0.0-4.3) H 04/11/20 05:35 Baso % (Auto) 1.0 % (0.0-1.8) 04/11/20 05:35 Lymph # 1.7 K/mm3 (1.2-5.4) 04/11/20 05:35 [place]ie # 0.9 K/mm3 (0.0-0.8) H 04/11/20 05:35 Eos # 0.6 K/mm3 (0.0-0.4) H 04/11/20 05:35 Baso # 0.1 K/mm3 (0.0-0.1) 04/11/20 05:35 Seg Neutrophils % 65.1 % (40.0-70.0) 04/11/20 05:35 Seg Neutrophils # 6.2 K/mm3 (1.8-7.7) 04/11/20 05:35 Sodium 144 mmol/L (137-145) 04/11/20 05:35 Potassium 3.9 mmol/L (3.6-5.0) D 04/11/20 05:35 Chloride 111.3 mmol/L (98-107) H 04/11/20 05:35 Carbon Dioxide 23 mmol/L (22-30) 04/11/20 05:35 Anion Gap 14 mmol/L 04/11/20 05:35 BUN 9 mg/dL (7-17) 04/11/20 05:35 Creatinine 0.5 mg/dL (0.7-1.2) L D 04/11/20 05:35 Estimated GFR > 60 ml/min 04/11/20 05:35 BUN/Creatinine Ratio 18 % 04/11/20 05:35 Glucose 150 mg/dL (65-100) H 04/11/20 05:35 Hemoglobin A1c 10.9 % (4-6) H 04/11/20 05:35 Calcium 8.4 mg/dL (8.4-10.2) 04/11/20 05:35 Total Bilirubin 0.20 mg/dL (0.1-1.2) 04/11/20 05:35 AST 17 units/L (5-40) 04/11/20 05:35 ALT 7 units/L (7-56) 04/11/20 05:35 Alkaline Phosphatase 77 units/L (35-129) 04/11/20 05:35 Total Protein 5.5 g/dL (6.3-8.2) L 04/11/20 05:35 Albumin 2.1 g/dL (3.9-5) L 04/11/20 05:35 Albumin/Globulin Ratio 0.6 % 04/11/20 05:35 Triglycerides 73 mg/dL (2-149) 04/11/20 05:35 Cholesterol 122 mg/dL (50-199) 04/11/20 05:35 LDL Cholesterol Direct 67 mg/dL (50-130) 05/15/20 05:35 HDL Cholesterol 46 mg/dL (40-59) 04/11/20 05:35 Cholesterol/HDL Ratio 2.65 % 04/11/20 05:35 Last Vital Signs Temp 98.5 F 04/11/20 22:00 Pulse 102 H 04/11/20 22:05 Resp 18 04/11/20 22:00 BP 133/61 04/11/20 22:00 Pulse Ox 98 04/11/20 22:00
[2020-04-12] MEDS: INSULIN REGULAR, HUMAN 100 UNITS/1 ML SUB-Q SCH ×4 (07:50→22:00)
[2020-04-12] MEDS: FOLIC ACID 1 MG TAB PO SCH (09:20)
[2020-04-12] MEDS: clonazePAM 0.5 MG TAB PO SCH ×2 (09:20→23:32)
[2020-04-12] MEDS: VALPROIC ACID 250 MG/5 ML ORAL LIQD PO SCH ×2 (09:20→23:30)
[2020-04-12] MEDS: THIAMINE 100 MG TAB PO SCH (09:20)
[2020-04-12] MEDS: levETIRAcetam 500 MG/5 ML ORAL LIQD PO SCH ×2 (09:21→23:29)
[2020-04-12] MEDS: ASPIRIN 81 MG TAB CHEW PO SCH (09:21)
[2020-04-12] MEDS: OMEGA-3 FATTY ACIDS/FISH OIL 1 GRAM CAP PO SCH ×2 (09:21→23:30)
[2020-04-12] MEDS: INSULIN NPH/REGULAR 70/30 INJ SUB-Q SCH ×3 (09:33→17:57)
[2020-04-12] MEDS ORDERED: risperiDONE 0.25 MG TAB PO SCH (10:00)
--- NOTE | 2020-04-12 11:20 | Event Note ---
Date: 04/12/20 Reported fall by RN patient asymptomatic w/o any visible trauma will order a CT head for possible brain hemorrhage
--- NOTE | 2020-04-12 13:49 | Cat Scan Report ---
CT head/brain wo con INDICATION / CLINICAL INFORMATION: 69 years Female; MAIN: s/p fall [facility] PT BEST STUDY SENT. TECHNIQUE: Routine CT head without contrast. All CT scans at this location are performed using CT dos e reduction for ALARA by means of automated exposure control. Study limited by motion artifact, as we ll as patient's inability to cooperate with the exam resulting in suboptimal positioning. COMPARISON: 04/03/2020 FINDINGS: BRAIN / INTRACRANIAL CONTENTS: There is increased density along the anterior, superior falx cerebri. However, this pattern is not significantly changed from prior exam and is felt to be within normal li mits. Mild prominence of the ventricular system is again noted which may be related to central atrophy. Nor mal pressure hydrocephalus might be a consideration. Please clinically correlate. Otherwise, no acute hemorrhage, mass effect, midline shift, or acute, large territorial infarct. Mild cerebral atrophy. There are mild areas of decreased attenuation in the white matter of the cerebral hemispheres. These are nonspecific findings and may be related to microangiopathy (hypertension, diabetes, atheroscleros is), given the patient's age. It might be difficult to evaluate for small areas of ischemia without d iffusion imaging by MRI. CRANIOCERVICAL JUNCTION: No significant abnormality. ORBITS: No significant abnormality of visualized orbits. SINUSES / MASTOIDS: No significant abnormality the visualized paranasal sinuses or mastoid air cells. ADDITIONAL FINDINGS: Atherosclerotic disease is seen in the anterior circulation. IMPRESSION: 1. No focal mass, hemorrhage, or acute, large territorial infarct. Signer Name: Earl Oleary MD, III Signed: 04/12/2020 1:44 PM Workstation Name: [facility]
[2020-04-12] MEDS: MONTELUKAST 10 MG TAB PO SCH (17:57)
[2020-04-12] MEDS ORDERED: traZODone 100 MG TAB PO SCH (23:15)
[2020-04-12] MEDS: risperiDONE 1 MG TAB PO SCH (23:32)
[2020-04-13] MEDS: traZODone 50 MG TAB PO SCH ×2 (01:19→22:12)
--- NOTE | 2020-04-13 08:33 | Progress Note ---
Subjective Date of service: 04/13/20 Principal diagnosis: Severe manic bipolar 1 disorder with psychotic behavior Subjective Comment: Per Nurse: Patient spent the evening in the activity room with peers. She was constantly talking to herself. She would throw her legs across the chair and have to be redirected to move them back in for safety. She was medication compliant. Will continue to monitor patient for safety. Psych Progress Patient was seen by me this a.m. and activity room. Patient reports sleeping good says she is smelling something very nice (activity room cleaned and sprayed with fragrance). Patient still confused, talkative, but no aggressive or b ehavioral disturbances physically. Incident: Normal Head CT from fall yesterday. Reason for continuing inpatient treatment: Low valproate levels at non therapeutic range, Patient still confused, talkative, cotninue to monitor response to treatment MENTAL STATUS EXAMINATION General Appearance and Behavior: Note Age appropriate,fair hygiene, wearing appropriate clothes, poor eye contact and uncooperative Cooperation: Withdrawn Psychomotor Behavior: unremarkable and within normal limits Mood: Not accessible Affect and affective range:elated and euthymic Thought Process: Tangential, fragmented and loose Thought Content: Illogical and confused Speech: loud volume, difficulty to understand, abnormalities in production of speech, confused and blocking Intellectual Functioning: Fair Suicidal Ideation: Not accessible Homicidal Ideation: Not accessible Impulse Control: Impaired/Unimpaired Insight and Judgment: Impaired Memory: Not accessible Attention: Divided attention intact and Divided attention impaired Orientation: Alert non oriented and confused Assessment and Plan - Psychiatric problem (1) Substance induced mood disorder Current Visit: Yes Status: Acute (2) Substance use disorder Current Visit: Yes Status: Acute (3) Severe manic bipolar 1 disorder with psychotic behavior Current Visit: Yes Status: Acute (4) Major depressive disorder, recurrent, severe with psychotic features Current Visit: Yes Status: Acute Physician Certification Treatment Plan Patient will be admitted for inpatient psychiatric evaluation, medication adjustment and close monitoring The patient's behavior, mood, sleep and appetite will be closely monitored. Patient will be enrolled in individual and group therapeutic sessions and encouraged to attend. Patient will be provided with a safe and structured environment. Patient's physical health needs will be addressed by the Hospitalist. Hospitalist Consulted Labs including CBC, CMP, Lipid profile and Hemoglobin A1C ordered Social Assessment will be completed and the Gis Professor will work with patient and family to ensure a suitable and safe disposition Medication adjustment: Check Valproate levels, switched to liquid valproate, increase risperidone to 1mg BID. Klonopin .5 BID Usual Wellness Gnosticist/Preservation: - Start Trazodone 50 mg po QHS & 50 mg po QHS PRN between 10 PM & 2 AM for insomnia - Start Melatonin 5 mg po QHS to promote circadian rhythm - Start [place]-3 for brain health, reduce impulsivity, and as adjunctive treatment for mood disorder, continue upon discharge given overall benefits. - Start B1 prophylaxis with 200 mg po for 5 days The patient agreed on the treatment plan, understood the risk, benefit, alternative treatment, potential consequence of no treatment, and gave informed consent. This is an acknowledgement statement that BLANCA ANTOINE is a 69 year old F who requires inpatient psychiatric admission for treatment which could reasonably be expected to improve the patient's condition for Estimated period of time patient will need to remain in the hospital: [5] Plan for post-hospital care: [ outpatient] Assessment and Plan - Patient Problems (1) Substance induced mood disorder Current Visit: Yes Status: Acute (2) Substance use disorder Current Visit: Yes Status: Acute (3) Severe manic bipolar 1 disorder with psychotic behavior Current Visit: Yes Status: Acute (4) Major depressive disorder, recurrent, severe with psychotic features Current Visit: Yes Status: Acute Medications and Allergies Allergies Allergy/AdvReac Type Severity Reaction Status Date / Time No Known Allergies Allergy Unverified 04/05/20 08:38 Home Medications Medication Instructions Recorded Confirmed Last Taken Type Aspirin [Aspirin BABY CHEW TAB] 81 mg PO QDAY 04/05/20 04/11/20 04/04/20 08:00 History Montelukast [Singulair] 10 mg PO QPM 04/05/20 04/11/20 04/03/20 21:00 History Divalproex [Brendan Frazier] 250 mg PO BID tablet 04/10/20 04/11/20 Unknown Rx Folic Acid [Folvite] 1 mg PO QDAY tablet 04/10/20 04/11/20 Unknown Rx Insulin NPH/Regular [NovoLIN 70/30] 15 unit SUB-Q BIDDIAB units 04/10/20 Unknown Rx Potassium Chloride [K-Dur] 20 meq PO QDAY #3 tablet 04/10/20 04/11/20 Unknown Rx Thiamine [Vitamin B-1] 100 mg PO QDAY tablet 04/10/20 04/11/20 Unknown Rx cloNIDine-TTS PATCH [Catapres-Tts 0.3 mg TD We patch 04/10/20 04/11/20 Unknown Rx 0.2mg Patch] levETIRAcetam [Keppra] 750 mg PO BID oral.liqd 04/10/20 04/11/20 Unknown Rx risperiDONE [RisperDAL] 0.5 mg PO BID tablet 04/10/20 04/11/20 Unknown Rx traZODone [Desyrel] 50 mg PO QHS tablet 04/10/20 04/11/20 Unknown Rx Active Meds: Active Medications Aspirin (Baby Aspirin) 81 mg PO QDAY [facility] Last Admin: 04/12/20 09:21 Dose: 81 mg Documented by: Clonazepam (Klonopin) 0.5 mg PO BID [facility] Last Admin: 04/12/20 23:32 Dose: 0.5 mg Documented by: Clonidine HCl (Catapres-Tts Patch) 0.3 mg TD We [facility] Fish Oil (Fish Oil) 2,000 mg PO BID [facility] Last Admin: 04/12/20 23:30 Dose: 2,000 mg Documented by: Folic Acid (Folvite) 1 mg PO QDAY [facility] Last Admin: 04/12/20 09:20 Dose: 1 mg Documented by: Insulin Human Isoph/Insulin Regular (Humulin 70/30) 18 unit SUB-Q BIDDIAB [facility] Last Admin: 04/12/20 17:57 Dose: Not Given Documented by: Insulin Human Regular (Humulin R) 0 units SUB-Q [facility]; Protocol Last Admin: 04/12/20 22:00 Dose: Not Given Documented by: Levetiracetam (Keppra) 750 mg PO BID [facility] Last Admin: 04/12/20 23:29 Dose: 750 mg Documented by: Lorazepam (Ativan) 2 mg PO Q6H PRN PRN Reason: Agitation Last Admin: 04/11/20 00:13 Dose: 2 mg Documented by: Montelukast Sodium (Singulair) 10 mg PO QPM [facility] Last Admin: 04/12/20 17:57 Dose: 10 mg Documented by: Risperidone (Risperdal) 1 mg PO BID [facility] Last Admin: 04/12/20 23:32 Dose: 1 mg Documented by: Thiamine HCl (Vitamin B-1) 100 mg PO QDAY [facility] Last Admin: 04/12/20 09:20 Dose: 100 mg Documented by: Trazodone HCl (Desyrel) 50 mg PO QHS [facility] Last Admin: 04/13/20 01:20 Dose: Not Given Documented by: Valproic Acid (Depakene Liq) 250 mg PO BID [facility] Last Admin: 04/12/20 23:30 Dose: 250 mg Documented by: Results - Results Labs/Vitals: Laboratory Last Values WBC 9.6 K/mm3 (4.5-11.0) 04/11/20 05:35 RBC 3.41 M/mm3 (3.65-5.03) L 04/11/20 05:35 Hgb 10.4 gm/dl (10.1-14.3) 04/11/20 05:35 Hct 31.9 % (30.3-42.9) 04/11/20 05:35 MCV 94 fl (79-97) 04/11/20 05:35 MCH 31 pg (28-32) 04/11/20 05:35 MCHC 33 % (30-34) 04/11/20 05:35 RDW 12.7 % (13.2-15.2) L 04/11/20 05:35 Plt Count 227 K/mm3 (140-440) 04/11/20 05:35 Lymph % (Auto) 18.2 % (13.4-35.0) 04/11/20 05:35 [place] % (Auto) 9.6 % (0.0-7.3) H 04/11/20 05:35 Eos % (Auto) 6.1 % (0.0-4.3) H 04/11/20 05:35 Baso % (Auto) 1.0 % (0.0-1.8) 04/11/20 05:35 Lymph # 1.7 K/mm3 (1.2-5.4) 04/11/20 05:35 [place] # 0.9 K/mm3 (0.0-0.8) H 04/11/20 05:35 Eos # 0.6 K/mm3 (0.0-0.4) H 04/11/20 05:35 Baso # 0.1 K/mm3 (0.0-0.1) 04/11/20 05:35 Seg Neutrophils % 65.1 % (40.0-70.0) 04/11/20 05:35 Seg Neutrophils # 6.2 K/mm3 (1.8-7.7) 04/11/20 05:35 Sodium 144 mmol/L (137-145) 04/11/20 05:35 Potassium 3.9 mmol/L (3.6-5.0) D 04/11/20 05:35 Chloride 111.3 mmol/L (98-107) H 04/11/20 05:35 Carbon Dioxide 23 mmol/L (22-30) 04/11/20 05:35 Anion Gap 14 mmol/L 04/11/20 05:35 BUN 9 mg/dL (7-17) 04/11/20 05:35 Creatinine 0.5 mg/dL (0.7-1.2) L D 04/11/20 05:35 Estimated GFR > 60 ml/min 04/11/20 05:35 BUN/Creatinine Ratio 18 % 04/11/20 05:35 Glucose 150 mg/dL (65-100) H 04/11/20 05:35 Hemoglobin A1c 10.9 % (4-6) H 04/11/20 05:35 Calcium 8.4 mg/dL (8.4-10.2) 04/11/20 05:35 Total Bilirubin 0.20 mg/dL (0.1-1.2) 04/11/20 05:35 AST 17 units/L (5-40) 04/11/20 05:35 ALT 7 units/L (7-56) 04/11/20 05:35 Alkaline Phosphatase 77 units/L (35-129) 04/11/20 05:35 Total Protein 5.5 g/dL (6.3-8.2) L 04/11/20 05:35 Albumin 2.1 g/dL (3.9-5) L 04/11/20 05:35 Albumin/Globulin Ratio 0.6 % 04/11/20 05:35 Triglycerides 73 mg/dL (2-149) 04/11/20 05:35 Cholesterol 122 mg/dL (50-199) 04/11/20 05:35 LDL Cholesterol Direct 67 mg/dL (50-130) 04/11/20 05:35 HDL Cholesterol 46 mg/dL (40-59) 04/11/20 05:35 Cholesterol/HDL Ratio 2.65 % 04/11/20 05:35 Valproic Acid 39.4 ug/mL (50-100) L 04/12/20 08:04 Last Vital Signs Temp 98.0 F 04/12/20 13:47 Pulse 106 H 04/12/20 13:47 Resp 18 04/12/20 13:47 BP 152/78 04/12/20 13:47 Pulse Ox 95 04/12/20 13:47
[2020-04-13] MEDS: INSULIN NPH/REGULAR 70/30 INJ SUB-Q SCH ×2 (09:02→17:19)
[2020-04-13] MEDS: INSULIN REGULAR, HUMAN 100 UNITS/1 ML SUB-Q SCH ×4 (09:03→22:50)
[2020-04-13] MEDS: FOLIC ACID 1 MG TAB PO SCH (09:05)
[2020-04-13] MEDS: ASPIRIN 81 MG TAB CHEW PO SCH (09:05)
[2020-04-13] MEDS: risperiDONE 1 MG TAB PO SCH ×2 (09:06→22:06)
[2020-04-13] MEDS: THIAMINE 100 MG TAB PO SCH (09:06)
[2020-04-13] MEDS: VALPROIC ACID 250 MG/5 ML ORAL LIQD PO SCH ×2 (09:06→22:06)
[2020-04-13] MEDS: OMEGA-3 FATTY ACIDS/FISH OIL 1 GRAM CAP PO SCH ×2 (09:06→22:07)
[2020-04-13] MEDS: levETIRAcetam 500 MG/5 ML ORAL LIQD PO SCH ×2 (09:06→22:06)
[2020-04-13] MEDS: clonazePAM 0.5 MG TAB PO SCH ×2 (09:55→22:06)
--- NOTE | 2020-04-13 10:57 | Event Note ---
Date: 04/13/20 Discussed with psychiatry attending Per family prior to this admission patient was having apparently normal life without any history of confusion or psychotic disorder Will order MRI of the brain without contrast for any possible posterior circulation CVA.
[2020-04-13] MEDS: MONTELUKAST 10 MG TAB PO SCH (17:08)
--- NOTE | 2020-04-14 06:58 | Progress Note ---
Subjective Date of service: 04/14/20 Principal diagnosis: Severe manic bipolar 1 disorder with psychotic behavior Subjective Comment: Per Nurse: Patient rested quietly throughout the night. She awoke at 0615 and was angry and argumentative. She refused to allow staff to assist her with adls. She got out of bed and was walking in her room without staff. Patient walked several steps to the window, turned and walked back to the bed where she sat on the side. Patient refuses all care, assistance, and redirection. Will continue to monitor patient for safety. Psych Progress Patient says she doesn't know how her night was because she slept though it and it must have been good. She reports not feeling okay because she doesn't need to be here and she is better than other patients out there. Patient was asked for her house address and phone number but unable to recall, claiming its because she recently moved. Patient stated her correctly but continues to get her age wrong saying shes 25. She made a good attempt to calculate her age by counting forward in multiple 10s from 1951 to 2002 but had issue going further. Collateral: After speaking with son, who says mum was completely independent prior to new sudden onset of symptoms before coming to ER. I discussed posterior CVA concerns with Hospitalist. Patient to get MRI today. Reason for continuing inpatient treatment: Persistent Low valproate levels at non therapeutic range, Patient still confused, talkative, continue to monitor response to treatment. Valproate increased to 500 mg BID today. MENTAL STATUS EXAMINATION General Appearance and Behavior: Note Age appropriate,fair hygiene, wearing appropriate clothes, poor eye contact and uncooperative Cooperation: Withdrawn Psychomotor Behavior: unremarkable and within normal limits Mood: Not accessible Affect and affective range:elated and euthymic Thought Process: Tangential, fragmented and loose Thought Content: Illogical and confused Speech: loud volume, difficulty to understand, abnormalities in production of speech, confused and blocking Intellectual Functioning: Fair Suicidal Ideation: Not accessible Homicidal Ideation: Not accessible Impulse Control: Impaired/Unimpaired Insight and Judgment: Impaired Memory: Not accessible Attention: Divided attention intact and Divided attention impaired Orientation: Alert non-oriented and confused Assessment and Plan - Psychiatric problem (1) Substance induced mood disorder Current Visit: Yes Status: Acute (2) Substance use disorder Current Visit: Yes Status: Acute (3) Severe manic bipolar 1 disorder with psychotic behavior Current Visit: Yes Status: Acute (4) Major depressive disorder, recurrent, severe with psychotic features Current Visit: Yes Status: Acute Physician Certification Treatment Plan Patient will be admitted for inpatient psychiatric evaluation, medication adjustment and close monitoring The patient's behavior, mood, sleep and appetite will be closely monitored. Patient will be enrolled in individual and group therapeutic sessions and encouraged to attend. Patient will be provided with a safe and structured environment. Patient's physical health needs will be addressed by the Hospitalist. Yessy dixon Consulted Labs including CBC, CMP, Lipid profile and Hemoglobin A1C ordered Social Assessment will be completed and the Butadiene Convertor Operator will work with patient and family to ensure a suitable and safe disposition Medication adjustment: Check Valproate levels, switched to liquid valproate, increase risperidone to 1mg BID. Klonopin .5 BID Usual [employer]ness [employer]: - Start Trazodone 50 mg po QHS & 50 mg po QHS PRN between 10 PM & 2 AM for insomnia - Start Melatonin 5 mg po QHS to promote circadian rhythm - Start [place]-3 for brain health, reduce impulsivity, and as adjunctive treatment for mood disorder, continue upon discharge given overall benefits. - Start B1 prophylaxis with 200 mg po for 5 days The patient agreed on the treatment plan, understood the risk, benefit, alternative treatment, potential consequence of no treatment, and gave informed consent. This is an acknowledgement statement that BLANCA ANTOINE is a 69 year old F who requires inpatient psychiatric admission for treatment which could reasonably be expected to improve the patient's condition for Estimated period of time patient will need to remain in the hospital: [4] Plan for post-hospital care: [ outpatient] Assessment and Plan - Patient Problems (1) Substance induced mood disorder Current Visit: Yes Status: Acute (2) Substance use disorder Current Visit: Yes Status: Acute (3) Severe manic bipolar 1 disorder with psychotic behavior Current Visit: Yes Status: Acute (4) Major depressive disorder, recurrent, severe with psychotic features Current Visit: Yes Status: Acute Medications and Allergies Allergies Allergy/AdvReac Type Severity Reaction Status Date / Time No Known Allergies Allergy Unverified 04/05/20 08:38 Home Medications Medication Instructions Recorded Confirmed Last Taken Type Aspirin [Aspirin BABY CHEW TAB] 81 mg PO QDAY 04/05/20 04/11/20 04/04/20 08:00 History Montelukast [Singulair] 10 mg PO QPM 04/05/20 04/11/20 04/03/20 21:00 History Divalproex [Brendan Frazier] 250 mg PO BID tablet 04/10/20 04/11/20 Unknown Rx Folic Acid [Folvite] 1 mg PO QDAY tablet 04/10/20 04/11/20 Unknown Rx Insulin NPH/Regular [NovoLIN 70/30] 15 unit SUB-Q BIDDIAB units 04/10/20 04/11/20 Unknown Rx Potassium Chloride [K-Dur] 20 meq PO QDAY #3 tablet 04/10/20 04/11/20 Unknown Rx Thiamine [Vitamin B-1] 100 mg PO QDAY tablet 04/10/20 04/11/20 Unknown Rx cloNIDine-TTS PATCH [Catapres-Tts 0.3 mg TD We patch 04/10/20 04/11/20 Unknown Rx 0.2mg Patch] levETIRAcetam [Keppra] 750 mg PO BID oral.liqd 04/10/20 04/11/20 Unknown Rx risperiDONE [RisperDAL] 0.5 mg PO BID tablet 04/10/20 04/11/20 Unknown Rx traZODone [Desyrel] 50 mg PO QHS tablet 04/10/20 04/11/20 Unknown Rx Active Meds: Active Medications Aspirin (Baby Aspirin) 81 mg PO QDAY [facility] Last Admin: 04/13/20 09:05 Dose: 81 mg Documented by: Clonazepam (Klonopin) 0.5 mg PO BID [facility] Last Admin: 04/13/20 22:06 Dose: 0.5 mg Documented by: Clonidine HCl (Catapres-Tts Patch) 0.3 mg TD We [facility] Fish Oil (Fish Oil) 2,000 mg PO BID [facility] Last Admin: 04/13/20 22:07 Dose: 2,000 mg Documented by: Folic Acid (Folvite) 1 mg PO QDAY [facility] Last Admin: 04/13/20 09:05 Dose: 1 mg Documented by: Insulin Human Isoph/Insulin Regular (Humulin 70/30) 18 unit SUB-Q BIDDIAB [facility] Last Admin: 04/13/20 17:19 Dose: 18 unit Documented by: Insulin Human Regular (Humulin R) 0 units SUB-Q [facility]; Protocol Last Admin: 04/13/20 22:50 Dose: 2 units Documented by: Levetiracetam (Keppra) 750 mg PO BID [facility] Last Admin: 04/13/20 22:06 Dose: 750 mg Documented by: Lorazepam (Ativan) 2 mg PO Q6H PRN PRN Reason: Agitation Last Admin: 04/11/20 00:13 Dose: 2 mg Documented by: Montelukast Sodium (Singulair) 10 mg PO QPM [facility] Last Admin: 04/13/20 17:08 Dose: 10 mg Documented by: Risperidone (Risperdal) 1 mg PO BID [facility] Last Admin: 04/13/20 22:06 Dose: 1 mg Documented by: Thiamine HCl (Vitamin B-1) 100 mg PO QDAY [facility] Last Admin: 04/13/20 09:06 Dose: 100 mg Documented by: Trazodone HCl (Desyrel) 50 mg PO QHS [facility] Last Admin: 04/13/20 22:12 Dose: 50 mg Documented by: Valproic Acid (Depakene Liq) 250 mg PO BID [facility] Last Admin: 04/13/20 22:06 Dose: 250 mg Documented by: Results - Results Labs/Vitals: Laboratory Last Values WBC 9.6 K/mm3 (4.5-11.0) 04/11/20 05:35 RBC 3.41 M/mm3 (3.65-5.03) L 04/11/20 05:35 Hgb 10.4 gm/dl (10.1-14.3) 04/11/20 05:35 Hct 31.9 % (30.3-42.9) 04/11/20 05:35 MCV 94 fl (79-97) 04/11/20 05:35 MCH 31 pg (28-32) 04/11/20 05:35 MCHC 33 % (30-34) 04/11/20 05:35 RDW 12.7 % (13.2-15.2) L 04/11/20 05:35 Plt Count 227 K/mm3 (140-440) 04/11/20 05:35 Lymph % (Auto) 18.2 % (13.4-35.0) 04/11/20 05:35 [place] % (Auto) 9.6 % (0.0-7.3) H 04/11/20 05:35 Eos % (Auto) 6.1 % (0.0-4.3) H 04/11/20 05:35 Baso % (Auto) 1.0 % (0.0-1.8) 04/11/20 05:35 Lymph # 1.7 K/mm3 (1.2-5.4) 04/11/20 05:35 [place] # 0.9 K/mm3 (0.0-0.8) H 04/11/20 05:35 Eos # 0.6 K/mm3 (0.0-0.4) H 04/11/20 05:35 Baso # 0.1 K/mm3 (0.0-0.1) 04/11/20 05:35 Seg Neutrophils % 65.1 % (40.0-70.0) 04/11/20 05:35 Seg Neutrophils # 6.2 K/mm3 (1.8-7.7) 04/11/20 05:35 Sodium 144 mmol/L (137-145) 04/11/20 05:35 Potassium 3.9 mmol/L (3.6-5.0) D 04/11/20 05:35 Chloride 111.3 mmol/L (98-107) H 04/11/20 05:35 Carbon Dioxide 23 mmol/L (22-30) 04/11/20 05:35 Anion Gap 14 mmol/L 04/11/20 05:35 BUN 9 mg/dL (7-17) 04/11/20 05:35 Creatinine 0.5 mg/dL (0.7-1.2) L D 04/11/20 05:35 Estimated GFR > 60 ml/min 04/11/20 05:35 BUN/Creatinine Ratio 18 % 04/11/20 05:35 Glucose 150 mg/dL (65-100) H 04/11/20 05:35 Hemoglobin A1c 10.9 % (4-6) H 04/11/20 05:35 Calcium 8.4 mg/dL (8.4-10.2) 04/11/20 05:35 Total Bilirubin 0.20 mg/dL (0.1-1.2) 04/11/20 05:35 AST 17 units/L (5-40) 04/11/20 05:35 ALT 7 units/L (7-56) 04/11/20 05:35 Alkaline Phosphatase 77 units/L (35-129) 04/11/20 05:35 Total Protein 5.5 g/dL (6.3-8.2) L 04/11/20 05:35 Albumin 2.1 g/dL (3.9-5) L 04/11/20 05:35 Albumin/Globulin Ratio 0.6 % 04/11/20 05:35 Triglycerides 73 mg/dL (2-149) 04/11/20 05:35 Cholesterol 122 mg/dL (50-199) 04/11/20 05:35 LDL Cholesterol Direct 67 mg/dL (50-130) 04/11/20 05:35 HDL Cholesterol 46 mg/dL (40-59) 04/11/20 05:35 Cholesterol/HDL Ratio 2.65 % 04/11/20 05:35 Valproic Acid 39.4 ug/mL (50-100) L 04/12/20 08:04 Last Vital Signs Temp 98.0 F 04/12/20 13:47 Pulse 106 H 04/12/20 13:47 Resp 18 04/12/20 13:47 BP 152/78 04/12/20 13:47 Pulse Ox 95 04/12/20 13:47
[2020-04-14] MEDS: INSULIN REGULAR, HUMAN 100 UNITS/1 ML SUB-Q SCH ×4 (09:19→21:44)
[2020-04-14] MEDS: OMEGA-3 FATTY ACIDS/FISH OIL 1 GRAM CAP PO SCH ×2 (09:48→21:43)
[2020-04-14] MEDS: THIAMINE 100 MG TAB PO SCH (09:48)
[2020-04-14] MEDS: ASPIRIN 81 MG TAB CHEW PO SCH (09:49)
[2020-04-14] MEDS: risperiDONE 1 MG TAB PO SCH ×2 (09:49→21:43)
[2020-04-14] MEDS: VALPROIC ACID 250 MG/5 ML ORAL LIQD PO SCH ×2 (09:49→21:44)
[2020-04-14] MEDS: clonazePAM 0.5 MG TAB PO SCH ×2 (09:49→21:43)
[2020-04-14] MEDS: FOLIC ACID 1 MG TAB PO SCH (09:49)
[2020-04-14] MEDS: levETIRAcetam 500 MG/5 ML ORAL LIQD PO SCH ×2 (09:50→21:45)
[2020-04-14] MEDS: INSULIN NPH/REGULAR 70/30 INJ SUB-Q SCH ×2 (09:51→17:08)
[2020-04-14] MEDS ORDERED: HALOPERIDOL LACTATE 5 MG/1 ML INJ IM ONE (12:31)
[2020-04-14] MEDS ORDERED: PROMETHAZINE 12.5 MG/10 ML ORAL LIQD PO STA (12:31)
[2020-04-14] MEDS: MONTELUKAST 10 MG TAB PO SCH (19:08)
[2020-04-14] MEDS: traZODone 50 MG TAB PO SCH (21:43)
[2020-04-14] MEDS ORDERED: LORazepam 2 MG/ML VIAL IM PRN (23:30)
--- NOTE | 2020-04-15 07:02 | Progress Note ---
Subjective Date of service: 04/15/20 Principal diagnosis: Severe manic bipolar 1 disorder with psychotic behavior Subjective Comment: Per Nurse: pt is alert and oriented to person and place, disorganized, confused, irritable, constantly asking for her phone, car, and her son, requires redirect ion, medication compliant, medication given crushed in apple sauce, blood sugar was 408 at bedtime, 8units of insulin given sliding scale, no distress noted, will continue to monitor for safety. Psych Progress Patient seen walking straight, still having thought disorder, less rambled speech noted today and sometimes uncooperative with redirectioning. She describes her mood today as fine, buts says she is not happy staff not letting her use phone. She reports sleeping good especially with the medications. Collateral: . Patient to get MRI today. Reason for continuing inpatient treatment: Valproate levels 45 today, at non therapeutic range, Patient still confused, talkative, continue to monitor response to treatment. Will recheck in 2 days. MENTAL STATUS EXAMINATION General Appearance and Behavior: Note Age appropriate,fair hygiene, wearing appropriate clothes, poor eye contact Cooperation: Moderate cooperative. Psychomotor Behavior: unremarkable and within normal limits Mood: "I'm fine" Affect and affective range: congruent with mood Thought Process: Tangential, fragmented and loose Thought Content: Illogical and confused Speech: normal rate and volume Intellectual Functioning: Fair Suicidal Ideation: Not accessible Homicidal Ideation: Not accessible Impulse Control: Impaired/Unimpaired Insight and Judgment: Impaired Memory: Not accessible Attention: Divided attention intact and Divided attention impaired Orientation: Alert non-oriented and confused Assessment and Plan - Psychiatric problem (1) Substance induced mood disorder Current Visit: Yes Status: Acute (2) Substance use disorder Current Visit: Yes Status: Acute (3) Severe manic bipolar 1 disorder with psychotic behavior Current Visit: Yes Status: Acute (4) Major depressive disorder, recurrent, severe with psychotic features Current Visit: Yes Status: Acute Physician Certification Treatment Plan Patient will be admitted for inpatient psychiatric evaluation, medication adjustment and close monitoring The patient's behavior, mood, sleep and appetite will be closely monitored. Patient will be enrolled in individual and group therapeutic sessions and encouraged to attend. Patient will be provided with a safe and structured environment. Patient's physical health needs will be addressed by the Hospitalist. Hosp italist Consulted Labs including CBC, CMP, Lipid profile and Hemoglobin A1C ordered Social Assessment will be completed and the Yeast Fermentation Attendant will work with patient and family to ensure a suitable and safe disposition Medication adjustment: Check Valproate levels in 2 days, switched to liquid valproate, increase risperidone to 1mg BID. Klonopin .5 BID [facility]ual [facility]/Preservation: - Start Trazodone 50 mg po QHS & 50 mg po QHS PRN between 10 PM & 2 AM for insomnia - Start Melatonin 5 mg po QHS to promote circadian rhythm - Start [place]-3 for brain health, reduce impulsivity, and as adjunctive treatment for mood disorder, continue upon discharge given overall benefits. - Start B1 prophylaxis with 200 mg po for 5 days The patient agreed on the treatment plan, understood the risk, benefit, alternative treatment, potential consequence of no treatment, and gave informed consent. This is an acknowledgement statement that BLANCA ANTOINE is a 69 year old F who requires inpatient psychiatric admission for treatment which could reasonably be expected to improve the patient's condition for Estimated period of time patient will need to remain in the hospital: [3] Plan for post-hospital care: [ outpatient] Assessment and Plan - Patient Problems (1) Substance induced mood disorder Current Visit: Yes Status: Acute (2) Substance use disorder Current Visit: Yes Status: Acute (3) Severe manic bipolar 1 disorder with psychotic behavior Current Visit: Yes Status: Acute (4) Major depressive disorder, recurrent, severe with psychotic features Current Visit: Yes Status: Acute Medications and Allergies Allergies Allergy/AdvReac Type Severity Reaction Status Date / Time No Known Allergies Allergy Unverified 04/05/20 08:38 Home Medications Medication Instructions Recorded Confirmed Last Taken Type Aspirin [Aspirin BABY CHEW TAB] 81 mg PO QDAY 04/05/20 04/11/20 04/04/20 08:00 History Montelukast [Singulair] 10 mg PO QPM 04/05/20 04/11/20 04/03/20 21:[address] [Depakote Dr] 250 mg PO BID tablet 04/10/20 04/11/20 Unknown Rx Folic Acid [Folvite] 1 mg PO QDAY tablet 04/10/20 04/11/20 Unknown Rx Insulin NPH/Regular [NovoLIN 70/30] 15 unit SUB-Q BIDDIAB units 04/10/20 04/11/20 Unknown Rx Potassium Chloride [K-Dur] 20 meq PO QDAY #3 tablet 04/10/20 04/11/20 Unknown Rx Thiamine [Vitamin B-1] 100 mg PO QDAY tablet 04/10/20 04/11/20 Unknown Rx cloNIDine-TTS PATCH [Catapres-Tts 0.3 mg TD We patch 04/10/20 04/11/20 Unknown Rx 0.2mg Patch] levETIRAcetam [Keppra] 750 mg PO BID oral.liqd 04/10/20 04/11/20 Unknown Rx risperiDONE [RisperDAL] 0.5 mg PO BID tablet 04/10/20 04/11/20 Unknown Rx traZODone [Desyrel] 50 mg PO QHS tablet 04/10/20 04/11/20 Unknown Rx Active Meds: Active Medications Aspirin (Baby Aspirin) 81 mg PO QDAY [facility] Last Admin: 04/14/20 09:49 Dose: 81 mg Documented by: Clonazepam (Klonopin) 0.5 mg PO BID [facility] Last Admin: 04/14/20 21:43 Dose: 0.5 mg Documented by: Clonidine HCl (Catapres-Tts Patch) 0.3 mg TD We [facility] Fish Oil (Fish Oil) 2,000 mg PO BID [facility] Last Admin: 04/14/20 21:43 Dose: 2,000 mg Documented by: Folic Acid (Folvite) 1 mg PO QDAY [facility] Last Admin: 04/14/20 09:49 Dose: 1 mg Documented by: Haloperidol (Haldol) 2 mg PO BID [facility] Insulin Human Isoph/Insulin Regular (Humulin 70/30) 18 unit SUB-Q BIDDIAB [facility] Last Admin: 04/14/20 17:08 Dose: Not Given Documented by: Insulin Human Regular (Humulin R) 0 units SUB-Q [facility]; Protocol Last Admin: 04/14/20 21:44 Dose: 8 units Documented by: Levetiracetam (Keppra) 750 mg PO BID [facility] Last Admin: 04/14/20 21:45 Dose: 750 mg Documented by: Lorazepam (Ativan) 2 mg PO Q6H PRN PRN Reason: Agitation Last Admin: 04/11/20 00:13 Dose: 2 mg Documented by: Lorazepam (Ativan) 2 mg IM Q6H PRN PRN Reason: Agitation Montelukast Sodium (Singulair) 10 mg PO QPM [facility] Last Admin: 04/14/20 19:08 Dose: 10 mg Documented by: Risperidone (Risperdal) 2 mg PO BID [facility] Last Admin: 04/14/20 21:43 Dose: 2 mg Documented by: Thiamine HCl (Vitamin B-1) 100 mg PO QDAY [facility] Last Admin: 04/14/20 09:48 Dose: 100 mg Documented by: Trazodone HCl (Desyrel) 50 mg PO QHS [facility] Last Admin: 04/14/20 21:43 Dose: 50 mg Documented by: Valproic Acid (Depakene Liq) 500 mg PO BID [facility] Last Admin: 04/14/20 21:44 Dose: 500 mg Documented by: Results - Results Labs/Vitals: Laboratory Last Values WBC 9.6 K/mm3 (4.5-11.0) 04/11/20 05:35 RBC 3.41 M/mm3 (3.65-5.03) L 04/11/20 05:35 Hgb 10.4 gm/dl (10.1-14.3) 04/11/20 05:35 Hct 31.9 % (30.3-42.9) 04/11/20 05:35 MCV 94 fl (79-97) 04/11/20 05:35 MCH 31 pg (28-32) 04/11/20 05:35 MCHC 33 % (30-34) 04/11/20 05:35 RDW 12.7 % (13.2-15.2) L 04/11/20 05:35 Plt Count 227 K/mm3 (140-440) 04/11/20 05:35 Lymph % (Auto) 18.2 % (13.4-35.0) 04/11/20 05:35 [place] % (Auto) 9.6 % (0.0-7.3) H 04/11/20 05:35 Eos % (Auto) 6.1 % (0.0-4.3) H 04/11/20 05:35 Baso % (Auto) 1.0 % (0.0-1.8) 04/11/20 05:35 Lymph # 1.7 K/mm3 (1.2-5.4) 04/11/20 05:35 [place] # 0.9 K/mm3 (0.0-0.8) H 04/11/20 05:35 Eos # 0.6 K/mm3 (0.0-0.4) H 04/11/20 05:35 Baso # 0.1 K/mm3 (0.0-0.1) 04/11/20 05:35 Seg Neutrophils % 65.1 % (40.0-70.0) 04/11/20 05:35 Seg Neutrophils # 6.2 K/mm3 (1.8-7.7) 04/11/20 05:35 Sodium 144 mmol/L (137-145) 04/11/20 05:35 Potassium 3.9 mmol/L (3.6-5.0) D 04/11/20 05:35 Chloride 111.3 mmol/L (98-107) H 04/11/20 05:35 Carbon Dioxide 23 mmol/L (22-30) 04/11/20 05:35 Anion Gap 14 mmol/L 04/11/20 05:35 BUN 9 mg/dL (7-17) 04/11/20 05:35 Creatinine 0.5 mg/dL (0.7-1.2) L D 04/11/20 05:35 Estimated GFR > 60 ml/min 04/11/20 05:35 BUN/Creatinine Ratio 18 % 04/11/20 05:35 Glucose 150 mg/dL (65-100) H 04/11/20 05:35 Hemoglobin A1c 10.9 % (4-6) H 04/11/20 05:35 Calcium 8.4 mg/dL (8.4-10.2) 04/11/20 05:35 Total Bilirubin 0.20 mg/dL (0.1-1.2) 04/11/20 05:35 AST 17 units/L (5-40) 04/11/20 05:35 ALT 7 units/L (7-56) 04/11/20 05:35 Alkaline Phosphatase 77 units/L (35-129) 04/11/20 05:35 Total Protein 5.5 g/dL (6.3-8.2) L 04/11/20 05:35 Albumin 2.1 g/dL (3.9-5) L 04/11/20 05:35 Albumin/Globulin Ratio 0.6 % 04/11/20 05:35 Triglycerides 73 mg/dL (2-149) 04/11/20 05:35 Cholesterol 122 mg/dL (50-199) 04/11/20 05:35 LDL Cholesterol Direct 67 mg/dL (50-130) 04/11/20 05:35 HDL Cholesterol 46 mg/dL (40-59) 04/11/20 05:35 Cholesterol/HDL Ratio 2.65 % 04/11/20 05:35 Valproic Acid 38.6 ug/mL (50-100) L 04/14/20 07:14 Last Vital Signs Temp 98.9 F 04/14/20 19:32 Pulse 122 H 04/14/20 19:32 Resp 20 04/14/20 19:32 BP 183/89 04/14/20 19:32 Pulse Ox 96 04/14/20 19:32
[2020-04-15] MEDS ORDERED: ZIPRASIDONE MESYLATE 20 MG VIAL IM STA (07:39)
[2020-04-15] MEDS: INSULIN REGULAR, HUMAN 100 UNITS/1 ML SUB-Q SCH ×3 (09:09→16:14)
[2020-04-15] MEDS: INSULIN NPH/REGULAR 70/30 INJ SUB-Q SCH ×2 (09:09→16:55)
[2020-04-15] MEDS: HALOPERIDOL 2 MG TAB PO SCH ×2 (09:11→21:10)
[2020-04-15] MEDS: THIAMINE 100 MG TAB PO SCH (09:11)
[2020-04-15] MEDS: ASPIRIN 81 MG TAB CHEW PO SCH (09:11)
[2020-04-15] MEDS: FOLIC ACID 1 MG TAB PO SCH (09:11)
[2020-04-15] MEDS: clonazePAM 0.5 MG TAB PO SCH ×2 (09:11→21:12)
[2020-04-15] MEDS: VALPROIC ACID 250 MG/5 ML ORAL LIQD PO SCH ×2 (09:12→21:09)
[2020-04-15] MEDS ORDERED: WATER FOR INJ Sterile (PF) 10 ML ONE (09:35)
[2020-04-15] MEDS: risperiDONE 1 MG TAB PO SCH ×2 (12:28→21:10)
[2020-04-15] MEDS: OMEGA-3 FATTY ACIDS/FISH OIL 1 GRAM CAP PO SCH ×2 (12:28→21:10)
[2020-04-15] MEDS: levETIRAcetam 500 MG/5 ML ORAL LIQD PO SCH ×2 (12:58→21:09)
--- NOTE | 2020-04-15 16:55 | Event Note ---
Date: 04/15/20 MRI brain still pending Blood glucose and BP slightly elevated Adjusted insulin dose and antihypertensive Continue to monitor clinically
[2020-04-15] MEDS: MONTELUKAST 10 MG TAB PO SCH (17:33)
--- NOTE | 2020-04-15 18:51 | Magnetic Resonance Report ---
MRI BRAIN WITHOUT CONTRAST INDICATION / CLINICAL INFORMATION: MAIN: possible CVA, ams. TECHNIQUE: Multisequence, multiplanar images were obtained. COMPARISON: CT head dated 04/12/2020 FINDINGS: CEREBRAL and CEREBELLAR HEMISPHERES: Mild diffuse volume loss is evident. Mild nonspecific chronic wh ite matter changes are noted in the periventricular white matter bilaterally. No chronic infarct. No evidence of mass or mass effect. No midline shift. No acute hemorrhage. No diffusion restriction t o suggest acute infarct. No extra-axial fluid collection. VENTRICLES: As noted, the ventricular system is slightly prominent which probably represents central volume loss although normal pressure hydrocephalus could be considered. Please correlate with the pat ient. VISUALIZED ORBITS: No significant abnormality. VISUALIZED PARANASAL SINUSES: Mild diffuse mucosal thickening is noted throughout the sinuses. No flu id level or opacification. ADDITIONAL FINDINGS: None. IMPRESSION: No acute intracranial process is identified.Volume loss and chronic white matter changes. Signer Name: Greg Joe Jr, MD Signed: 04/15/2020 11:04 AM Workstation Name: [id number]
[2020-04-15] MEDS: traZODone 50 MG TAB PO SCH (21:10)
[2020-04-15] MEDS: METOPROLOL TARTRATE 25 MG TAB PO SCH (21:10)
[2020-04-16 05:58] LABS: Basophils # (Auto) 0.1 K/mm3 (0.0-0.1); Basophils % (Auto) 0.7 % (0.0-1.8); Eosinophils # (Auto) 0.6 K/mm3 (0.0-0.4); Eosinophils % (Auto) 5.2 % (0.0-4.3); Hematocrit 30.1 % (30.3-42.9); Hemoglobin 9.9 gm/dl (10.1-14.3); Lymphocytes # (Auto) 1.7 K/mm3 (1.2-5.4); Mean Corpuscular HGB Conc 33 % (30-34); Mean Corpuscular Volume 94 fl (79-97); Monocytes # (Auto) 1.1 K/mm3 (0.0-0.8); Platelet Count 241 K/mm3 (140-440); Red Cell Distribution Width 12.6 % (13.2-15.2)
[2020-04-16 06:18] LABS: BUN/Creatinine Ratio 33; Blood Urea Nitrogen 13 mg/dL (7-17); Calcium 8.5 mg/dL (8.4-10.2); Hemolysis Index 4
[2020-04-16] MEDS: INSULIN REGULAR, HUMAN 100 UNITS/1 ML SUB-Q SCH ×5 (06:32→21:44)
--- NOTE | 2020-04-16 07:15 | Progress Note ---
Subjective Date of service: 04/16/20 Principal diagnosis: Severe manic bipolar 1 disorder with psychotic behavior Subjective Comment: Per Nurse: Pt was in the activity room interacting with staff. She remains confused and disorganized and is constantly asking for some alcohol. Pt was offered juice and stated "I need a hot toddy. I just need some vodka." She is compliant with routine meds crushed She is encouraged to increase her oral intake and stay hydrated. No aggressive behavior and s/s of seizures. Appetite good and no complaints of pain. Pt responds to redirection. Remains a high fall risk due to unsteady gait and impulsive behavior. Will continue to monitor q 15 min for safety. Psych Progress Patient seen this AM, in social room, sitting with other colleagues, less talkative and loud. Reports she is fine, sleeping good and only complaints is wanting to go home. No SI or HI reported. Patient has also been requesting Vodka from staff yesterday. Plan to switch patient to Deparkote IM. Collateral: . Patient MRI was negative. Reason for continuing inpatient treatment: Valproate levels 45 today, at non therapeutic range, Patient still confused, less talkative, continue to monitor response to treatment. Will recheck in 2 days. MENTAL STATUS EXAMINATION General Appearance and Behavior: Note Age appropriate,fair hygiene, wearing appropriate clothes, poor eye contact Cooperation: Moderate cooperative. Psychomotor Behavior: unremarkable and within normal limits Mood: "I'm good" Affect and affective range: congruent with mood Thought Process: Tangential, fragmented and loose Thought Content: Illogical and confused Speech: normal rate and volume Intellectual Functioning: Fair Suicidal Ideation: Not accessible Homicidal Ideation: Not accessible Impulse Control: Impaired/Unimpaired Insight and Judgment: Impaired Memory: Not accessible Attention: Divided attention intact and Divided attention impaired Orientation: Alert non-oriented and confused Assessment and Plan - Psychiatric problem (1) Substance induced mood disorder Current Visit: Yes Status: Acute (2) Substance use disorder Current Visit: Yes Status: Acute (3) Severe manic bipolar 1 disorder with psychotic behavior Current Visit: Yes Status: Acute (4) Major depressive disorder, recurrent, severe with psychotic features Current Visit: Yes Status: Acute Physician Certification Treatment Plan Patient will be admitted for inpatient psychiatric evaluation, medication adjustment and close monitoring The patient's behavior, mood, sleep and appetite will be closely monitored. Patient will be enrolled in individual and group therapeutic sessions and encouraged to attend. Patient will be provided with a safe and structured environment. Patient's physical health needs will be addressed by the Hospitalist. H ospitalist Consulted Labs including CBC, CMP, Lipid profile and Hemoglobin A1C ordered Social Assessment will be completed and the Lockstitch Waistband Setter will work with patient and family to ensure a suitable and safe disposition Medication adjustment: Check Valproate tomorrow, continue current meds Usual Wellness [employer]ism/Preservation: - Start Trazodone 50 mg po QHS & 50 mg po QHS PRN between 10 PM & 2 AM for insomnia - Start Melatonin 5 mg po QHS to promote circadian rhythm - Start [place]-3 for brain health, reduce impulsivity, and as adjunctive treatment for mood disorder, continue upon discharge given overall benefits. - Start B1 prophylaxis with 200 mg po for 5 days The patient agreed on the treatment plan, understood the risk, benefit, alternative treatment, potential consequence of no treatment, and gave informed consent. This is an acknowledgement statement that BLANCA ANTOINE is a 69 year old F who requires inpatient psychiatric admission for treatment which could reasonably be expected to improve the patient's condition for Estimated period of time patient will need to remain in the hospital: [3] Plan for post-hospital care: [ outpatient] Assessment and Plan - Patient Problems (1) Substance induced mood disorder Current Visit: Yes Status: Acute (2) Substance use disorder Current Visit: Yes Status: Acute (3) Severe manic bipolar 1 disorder with psychotic behavior Current Visit: Yes Status: Acute (4) Major depressive disorder, recurrent, severe with psychotic features Current Visit: Yes Status: Acute Medications and Allergies Allergies Allergy/AdvReac Type Severity Reaction Status Date / Time No Known Allergies Allergy Unverified 04/05/20 08:38 Home Medications Medication Instructions Recorded Confirmed Last Taken Type Aspirin [Aspirin BABY CHEW TAB] 81 mg PO QDAY 04/05/20 04/11/20 04/04/20 08:00 History Montelukast [Singulair] 10 mg PO QPM 04/05/20 04/11/20 04/03/20 21:00 History Divalproex [Depakote Dr] 250 mg PO BID tablet 04/10/20 04/11/20 Unknown Rx Folic Acid [Folvite] 1 mg PO QDAY tablet 04/10/20 04/11/20 Unknown Rx Insulin NPH/Regular [NovoLIN 70/30] 15 unit SUB-Q BIDDIAB units 04/10/20 04/11/20 Unknown Rx Potassium Chloride [K-Dur] 20 meq PO QDAY #3 tablet 04/10/20 04/11/20 Unknown Rx Thiamine [Vitamin B-1] 100 mg PO QDAY tablet 04/10/20 04/11/20 Unknown Rx cloNIDine-TTS PATCH [Catapres-Tts 0.3 mg TD We patch 04/10/20 04/11/20 Unknown Rx 0.2mg Patch] levETIRAcetam [Keppra] 750 mg PO BID oral.liqd 04/10/20 04/11/20 Unknown Rx risperiDONE [RisperDAL] 0.5 mg PO BID tablet 04/10/20 04/11/20 Unknown Rx traZODone [Desyrel] 50 mg PO QHS tablet 04/10/20 04/11/20 Unknown Rx Active Meds: Active Medications Aspirin (Baby Aspirin) 81 mg PO QDAY [facility] Last Admin: 04/15/20 09:11 Dose: 81 mg Documented by: Clonazepam (Klonopin) 0.5 mg PO BID [facility] Last Admin: 04/15/20 21:12 Dose: 0.5 mg Documented by: Clonidine HCl (Catapres-Tts Patch) 0.3 mg TD We JERRY Fish Oil (Fish Oil) 2,000 mg PO BID [facility] Last Admin: 04/15/20 21:10 Dose: 2,000 mg Documented by: Folic Acid (Folvite) 1 mg PO QDAY [facility] Last Admin: 04/15/20 09:11 Dose: 1 mg Documented by: Haloperidol (Haldol) 2 mg PO BID [facility] Last Admin: 04/15/20 21:10 Dose: 2 mg Documented by: Insulin Human Isoph/Insulin Regular (Humulin 70/30) 22 unit SUB-Q BIDDIAB [facility] Last Admin: 04/15/20 16:55 Dose: 22 unit Documented by: Insulin Human Regular (Humulin R) 0 units SUB-Q [facility]; Protocol Last Admin: 04/16/20 06:32 Dose: Not Given Documented by: Levetiracetam (Keppra) 750 mg PO BID [facility] Last Admin: 04/15/20 21:09 Dose: 750 mg Documented by: Lorazepam (Ativan) 2 mg PO Q6H PRN PRN Reason: Agitation Last Admin: 04/11/20 00:13 Dose: 2 mg Documented by: Lorazepam (Ativan) 2 mg IM Q6H PRN PRN Reason: Agitation Metoprolol Tartrate (Metoprolol) 25 mg PO BID [facility] Last Admin: 04/15/20 21:10 Dose: 25 mg Documented by: Montelukast Sodium (Singulair) 10 mg PO QPM [facility] Last Admin: 04/15/20 17:33 Dose: 10 mg Documented by: Risperidone (Risperdal) 2 mg PO BID [facility] Last Admin: 04/15/20 21:10 Dose: 2 mg Documented by: Thiamine HCl (Vitamin B-1) 100 mg PO QDAY [facility] Last Admin: 04/15/20 09:11 Dose: 100 mg Documented by: Trazodone HCl (Desyrel) 50 mg PO QHS [facility] Last Admin: 04/15/20 21:10 Dose: 50 mg Documented by: Valproic Acid (Depakene Liq) 500 mg PO BID [facility] Last Admin: 04/15/20 21:09 Dose: 500 mg Documented by: Results - Results Labs/Vitals: Laboratory Last Values WBC 10.9 K/mm3 (4.5-11.0) 04/16/20 05:46 RBC 3.20 M/mm3 (3.65-5.03) L 04/16/20 05:46 Hgb 9.9 gm/dl (10.1-14.3) L 04/16/20 05:46 Hct 30.1 % (30.3-42.9) L 04/16/20 05:46 MCV 94 fl (79-97) 04/16/20 05:46 MCH 31 pg (28-32) 04/16/20 05:46 MCHC 33 % (30-34) 04/16/20 05:46 RDW 12.6 % (13.2-15.2) L 04/16/20 05:46 Plt Count 241 K/mm3 (140-440) 04/16/20 05:46 Lymph % (Auto) 16.0 % (13.4-35.0) 04/16/20 05:46 [place] % (Auto) 10.0 % (0.0-7.3) H 04/16/20 05:46 Eos % (Auto) 5.2 % (0.0-4.3) H 04/16/20 05:46 Baso % (Auto) 0.7 % (0.0-1.8) 04/16/20 05:46 Lymph # 1.7 K/mm3 (1.2-5.4) 04/16/20 05:46 [place] # 1.1 K/mm3 (0.0-0.8) H 04/16/20 05:46 Eos # 0.6 K/mm3 (0.0-0.4) H 04/16/20 05:46 Baso # 0.1 K/mm3 (0.0-0.1) 04/16/20 05:46 Seg Neutrophils % 68.1 % (40.0-70.0) 04/16/20 05:46 Seg Neutrophils # 7.4 K/mm3 (1.8-7.7) 04/16/20 05:46 Sodium 149 mmol/L (137-145) H 04/16/20 05:46 Potassium 3.3 mmol/L (3.6-5.0) L 04/16/20 05:46 Chloride 111.0 mmol/L (98-107) H 04/16/20 05:46 Carbon Dioxide 27 mmol/L (22-30) 04/16/20 05:46 Anion Gap 14 mmol/L 04/16/20 05:46 BUN 13 mg/dL (7-17) 04/16/20 05:46 Creatinine 0.4 mg/dL (0.7-1.2) L 04/16/20 05:46 Estimated GFR > 60 ml/min 04/16/20 05:46 BUN/Creatinine Ratio 33 % 04/16/20 05:46 Glucose 64 mg/dL (65-100) L 04/16/20 05:46 POC Glucose 94 (70-105) 04/15/20 19:38 Hemoglobin A1c 10.9 % (4-6) H 04/11/20 05:35 Calcium 8.5 mg/dL (8.4-10.2) 04/16/20 05:46 Total Bilirubin 0.20 mg/dL (0.1-1.2) 04/11/20 05:35 AST 17 units/L (5-40) 04/11/20 05:35 ALT 7 units/L (7-56) 04/11/20 05:35 Alkaline Phosphatase 77 units/L (35-129) 04/11/20 05:35 Total Protein 5.5 g/dL (6.3-8.2) L 04/11/20 05:35 Albumin 2.1 g/dL (3.9-5) L 04/11/20 05:35 Albumin/Globulin Ratio 0.6 % 04/11/20 05:35 Triglycerides 73 mg/dL (2-149) 04/11/20 05:35 Cholesterol 122 mg/dL (50-199) 04/11/20 05:35 LDL Cholesterol Direct 67 mg/dL (50-130) 04/11/20 05:35 HDL Cholesterol 46 mg/dL (40-59) 04/11/20 05:35 Cholesterol/HDL Ratio 2.65 % 04/11/20 05:35 Valproic Acid 45.5 ug/mL (50-100) L 04/15/20 07:06 Last Vital Signs Temp 98.5 F 04/15/20 09:25 Pulse 108 H 04/15/20 21:10 Resp 18 04/15/20 09:25 BP 140/72 04/15/20 21:10 Pulse Ox 98 04/15/20 19:08
[2020-04-16] MEDS ORDERED: cloNIDine TTS 0.3 MG/24 HR PATCH TD SCH (08:00)
--- NOTE | 2020-04-16 08:39 | Event Note ---
Date: 04/16/20 MRI w/o any acute findings BG and BP much stable today replete KCL. cont current Mx.
[2020-04-16] MEDS ORDERED: POTASSIUM CHLORIDE ER 20 MEQ TAB PO ONE (09:00)
[2020-04-16] MEDS: ASPIRIN 81 MG TAB CHEW PO SCH (09:34)
[2020-04-16] MEDS: HALOPERIDOL 2 MG TAB PO SCH ×2 (09:34→21:42)
[2020-04-16] MEDS: METOPROLOL TARTRATE 25 MG TAB PO SCH ×2 (09:34→21:43)
[2020-04-16] MEDS: THIAMINE 100 MG TAB PO SCH (09:35)
[2020-04-16] MEDS: VALPROIC ACID 250 MG/5 ML ORAL LIQD PO SCH ×2 (09:35→21:42)
[2020-04-16] MEDS: clonazePAM 0.5 MG TAB PO SCH ×2 (09:35→21:42)
[2020-04-16] MEDS: FOLIC ACID 1 MG TAB PO SCH (09:35)
[2020-04-16] MEDS: levETIRAcetam 500 MG/5 ML ORAL LIQD PO SCH ×2 (09:36→21:43)
[2020-04-16] MEDS: INSULIN NPH/REGULAR 70/30 INJ SUB-Q SCH ×2 (09:43→16:57)
[2020-04-16] MEDS: OMEGA-3 FATTY ACIDS/FISH OIL 1 GRAM CAP PO SCH ×2 (10:34→21:42)
[2020-04-16] MEDS: risperiDONE 1 MG TAB PO SCH ×2 (10:34→21:42)
[2020-04-16] MEDS: MONTELUKAST 10 MG TAB PO SCH (18:23)
[2020-04-16] MEDS: traZODone 50 MG TAB PO SCH (21:42)
--- NOTE | 2020-04-17 07:05 | Progress Note ---
Subjective Date of service: 04/17/20 Principal diagnosis: Severe manic bipolar 1 disorder with psychotic behavior Subjective Comment: Per Nurse: pt spent her evening in activity room watching television, interacts with peers and staff, alert and oriented to person, disorganized, confused, cons tantly asking for her car [place], easily redirected, medication compliant, med crushed in apple sauce, had 100% of snacks, no complaints voiced, no distress noted, no seizure activity this shift,will monitor for safety. Psych Progress Patient assessed by me this A.M. she reports sleeping well, and feeling fine today. Says she needs lotion, her skin is dry and being a black lady, that not so nice. She reports compliance to medication. She denies having auditory or visual hallucination. Patient now ambulating in a straight pattern. Reason for continuing inpatient treatment: Valproate levels 54 today within therapeutic range. Discussed with son today, agrees to starting IM Invega due to concern for non compliance upon discharge. patient was asking for car keys, confused yesterday. Will monitor for mood stability and response to treatment. Discussed MENTAL STATUS EXAMINATION General Appearance and Behavior: Note Age appropriate,fair hygiene, wearing appropriate clothes, poor eye contact Cooperation: Moderate cooperative. Psychomotor Behavior: unremarkable and within normal limits Mood: "I'm good" Affect and affective range: congruent with mood Thought Process: Tangential, fragmented and loose Thought Content: Illogical and confused Speech: normal rate and volume Intellectual Functioning: Fair Suicidal Ideation: Not accessible Homicidal Ideation: Not accessible Impulse Control: Impaired/Unimpaired Insight and Judgment: Impaired Memory: Not accessible Attention: Divided attention intact and Divided attention impaired Orientation: Alert non-oriented and confused Assessment and Plan - Psychiatric problem (1) Substance induced mood disorder Current Visit: Yes Status: Acute (2) Substance use disorder Current Visit: Yes Status: Acute (3) Severe manic bipolar 1 disorder with psychotic behavior Current Visit: Yes Status: Acute (4) Major depressive disorder, recurrent, severe with psychotic features Current Visit: Yes Status: Acute Physician Certification Treatment Plan Patient will be admitted for inpatient psychiatric evaluation, medication adjustment and close monitoring The patient's behavior, mood, sleep and appetite will be closely monitored. Patient will be enrolled in individual and group therapeutic sessions and encouraged to attend. Patient will be provided with a safe and structured environment. Patient's physical health needs will be addressed by the Hospitalist. Hospitalist Consulted Labs including CBC, CMP, Lipid profile and Hemoglobin A1C ordered Social Assessment will be completed and the Seafood Harvester will work with patient and family to ensure a suitable and safe disposition Medication adjustment: Continue current meds Usual Wellness Jew/Preservation: - Start Trazodone 50 mg po QHS & 50 mg po QHS PRN between 10 PM & 2 AM for insomnia - Start Melatonin 5 mg po QHS to promote circadian rhythm - Start [place]-3 for brain health, reduce impulsivity, and as adjunctive treatment for mood disorder, continue upon discharge given overall benefits. - Start B1 prophylaxis with 200 mg po for 5 days The patient agreed on the treatment plan, understood the risk, benefit, alternative treatment, potential consequence of no treatment, and gave informed consent. This is an acknowledgement statement that BLANCA ANTOINE is a 69 year old F who requires inpatient psychiatric admission for treatment which could reasonably be expected to improve the patient's condition for Estimated period of time patient will need to remain in the hospital: [2] Plan for post-hospital care: [ outpatient] Assessment and Plan - Patient Problems (1) Substance induced mood disorder Current Visit: Yes Status: Acute (2) Substance use disorder Current Visit: Yes Status: Acute (3) Severe manic bipolar 1 disorder with psychotic behavior Current Visit: Yes Status: Acute (4) Major depressive disorder, recurrent, severe with psychotic features Current Visit: Yes Status: Acute Medications and Allergies Allergies Allergy/AdvReac Type Severity Reaction Status Date / Time No Known Allergies Allergy Unverified 04/05/20 08:38 Home Medications Medication Instructions Recorded Confirmed Last Taken Type Aspirin [Aspirin BABY CHEW TAB] 81 mg PO QDAY 04/05/20 04/11/20 04/04/20 08:00 History Montelukast [Singulair] 10 mg PO QPM 04/05/20 04/11/20 04/03/20 21:[address] [Depakote Dr] 250 mg PO BID tablet 04/10/20 04/11/20 Unknown Rx Folic Acid [Folvite] 1 mg PO QDAY tablet 04/10/20 04/11/20 Unknown Rx Insulin NPH/Regular [NovoLIN 70/30] 15 unit SUB-Q BIDDIAB units 04/10/20 04/11/20 Unknown Rx Potassium Chloride [K-Dur] 20 meq PO QDAY #3 tablet 04/10/20 04/11/20 Unknown Rx Thiamine [Vitamin B-1] 100 mg PO QDAY tablet 04/10/20 04/11/20 Unknown Rx cloNIDine-TTS PATCH [Catapres-Tts 0.3 mg TD We patch 04/10/20 04/11/20 Unknown Rx 0.2mg Patch] levETIRAcetam [Keppra] 750 mg PO BID oral.liqd 04/10/20 04/11/20 Unknown Rx risperiDONE [RisperDAL] 0.5 mg PO BID tablet 04/10/20 04/11/20 Unknown Rx traZODone [Desyrel] 50 mg PO QHS tablet 04/10/20 04/11/20 Unknown Rx Active Meds: Active Medications Aspirin (Baby Aspirin) 81 mg PO QDAY [facility] Last Admin: 04/16/20 09:34 Dose: 81 mg Documented by: Clonazepam (Klonopin) 0.5 mg PO BID [facility] Last Admin: 04/16/20 21:42 Dose: 0.5 mg Documented by: Clonidine HCl (Catapres-Tts Patch) 0.3 mg TD We [facility] Last Admin: 04/16/20 09:43 Dose: 0.3 mg Documented by: Fish Oil (Fish Oil) 2,000 mg PO BID [facility] Last Admin: 04/16/20 21:42 Dose: 2,000 mg Documented by: Folic Acid (Folvite) 1 mg PO QDAY [facility] Last Admin: 04/16/20 09:35 Dose: 1 mg Documented by: Haloperidol (Haldol) 2 mg PO BID [facility] Last Admin: 04/16/20 21:42 Dose: 2 mg Documented by: Insulin Human Isoph/Insulin Regular (Humulin 70/30) 22 unit SUB-Q BIDDIAB [facility] Last Admin: 04/16/20 16:57 Dose: 22 unit Documented by: Insulin Human Regular (Humulin R) 0 units SUB-Q [facility]; Protocol Last Admin: 04/16/20 21:44 Dose: Not Given Documented by: Levetiracetam (Keppra) 750 mg PO BID [facility] Last Admin: 04/16/20 21:43 Dose: 750 mg Documented by: Lorazepam (Ativan) 2 mg PO Q6H PRN PRN Reason: Agitation Last Admin: 04/11/20 00:13 Dose: 2 mg Documented by: Lorazepam (Ativan) 2 mg IM Q6H PRN PRN Reason: Agitation Metoprolol Tartrate (Metoprolol) 25 mg PO BID [facility] Last Admin: 04/16/20 21:43 Dose: 25 mg Documented by: Montelukast Sodium (Singulair) 10 mg PO QPM [facility] Last Admin: 04/16/20 18:23 Dose: 10 mg Documented by: Risperidone (Risperdal) 2 mg PO BID [facility] Last Admin: 04/16/20 21:42 Dose: 2 mg Documented by: Thiamine HCl (Vitamin B-1) 100 mg PO QDAY [facility] Last Admin: 04/16/20 09:35 Dose: 100 mg Documented by: Trazodone HCl (Desyrel) 50 mg PO QHS [facility] Last Admin: 04/16/20 21:42 Dose: 50 mg Documented by: Valproic Acid (Depakene Liq) 500 mg PO BID [facility] Last Admin: 04/16/20 21:42 Dose: 500 mg Documented by: Results - Results Labs/Vitals: Laboratory Last Values WBC 10.9 K/mm3 (4.5-11.0) 04/16/20 05:46 RBC 3.20 M/mm3 (3.65-5.03) L 04/16/20 05:46 Hgb 9.9 gm/dl (10.1-14.3) L 04/16/20 05:46 Hct 30.1 % (30.3-42.9) L 04/16/20 05:46 MCV 94 fl (79-97) 04/16/20 05:46 MCH 31 pg (28-32) 04/16/20 05:46 MCHC 33 % (30-34) 04/16/20 05:46 RDW 12.6 % (13.2-15.2) L 04/16/20 05:46 Plt Count 241 K/mm3 (140-440) 04/16/20 05:46 Lymph % (Auto) 16.0 % (13.4-35.0) 04/16/20 05:46 [place] % (Auto) 10.0 % (0.0-7.3) H 04/16/20 05:46 Eos % (Auto) 5.2 % (0.0-4.3) H 04/16/20 05:46 Baso % (Auto) 0.7 % (0.0-1.8) 04/16/20 05:46 Lymph # 1.7 K/mm3 (1.2-5.4) 04/16/20 05:46 [place] # 1.1 K/mm3 (0.0-0.8) H 04/16/20 05:46 Eos # 0.6 K/mm3 (0.0-0.4) H 04/16/20 05:46 Baso # 0.1 K/mm3 (0.0-0.1) 04/16/20 05:46 Seg Neutrophils % 68.1 % (40.0-70.0) 04/16/20 05:46 Seg Neutrophils # 7.4 K/mm3 (1.8-7.7) 04/16/20 05:46 Sodium 149 mmol/L (137-145) H 04/16/20 05:46 Potassium 3.3 mmol/L (3.6-5.0) L 04/16/20 05:46 Chloride 111.0 mmol/L (98-107) H 04/16/20 05:46 Carbon Dioxide 27 mmol/L (22-30) 04/16/20 05:46 Anion Gap 14 mmol/L 04/16/20 05:46 BUN 13 mg/dL (7-17) 04/16/20 05:46 Creatinine 0.4 mg/dL (0.7-1.2) L 04/16/20 05:46 Estimated GFR > 60 ml/min 04/16/20 05:46 BUN/Creatinine Ratio 33 % 04/16/20 05:46 Glucose 64 mg/dL (65-100) L 04/16/20 05:46 POC Glucose 75 (70-105) 04/17/20 06:42 Hemoglobin A1c 10.9 % (4-6) H 04/11/20 05:35 Calcium 8.5 mg/dL (8.4-10.2) 04/16/20 05:46 Total Bilirubin 0.20 mg/dL (0.1-1.2) 04/11/20 05:35 AST 17 units/L (5-40) 04/11/20 05:35 ALT 7 units/L (7-56) 04/11/20 05:35 Alkaline Phosphatase 77 units/L (35-129) 04/11/20 05:35 Total Protein 5.5 g/dL (6.3-8.2) L 04/11/20 05:35 Albumin 2.1 g/dL (3.9-5) L 04/11/20 05:35 Albumin/Globulin Ratio 0.6 % 04/11/20 05:35 Triglycerides 73 mg/dL (2-149) 04/11/20 05:35 Cholesterol 122 mg/dL (50-199) 04/11/20 05:35 LDL Cholesterol Direct 67 mg/dL (50-130) 04/11/20 05:35 HDL Cholesterol 46 mg/dL (40-59) 04/11/20 05:35 Cholesterol/HDL Ratio 2.65 % 04/11/20 05:35 Valproic Acid 54.2 ug/mL (50-100) 04/17/20 05:59 Last Vital Signs Temp 98.1 F 04/16/20 22:00 Pulse 108 H 04/16/20 22:00 Resp 18 04/16/20 22:00 BP 163/85 04/16/20 22:00 Pulse Ox 99 04/16/20 22:00
[2020-04-17] MEDS: INSULIN REGULAR, HUMAN 100 UNITS/1 ML SUB-Q SCH ×4 (08:28→21:17)
[2020-04-17] MEDS: INSULIN NPH/REGULAR 70/30 INJ SUB-Q SCH ×2 (08:28→17:12)
[2020-04-17] MEDS: risperiDONE 1 MG TAB PO SCH ×2 (09:10→21:15)
[2020-04-17] MEDS: clonazePAM 0.5 MG TAB PO SCH ×2 (09:10→21:16)
[2020-04-17] MEDS: VALPROIC ACID 250 MG/5 ML ORAL LIQD PO SCH ×2 (09:10→21:00)
[2020-04-17] MEDS: HALOPERIDOL 2 MG TAB PO SCH ×2 (09:10→21:14)
[2020-04-17] MEDS: levETIRAcetam 500 MG/5 ML ORAL LIQD PO SCH ×2 (09:10→21:14)
[2020-04-17] MEDS: FOLIC ACID 1 MG TAB PO SCH (09:11)
[2020-04-17] MEDS: OMEGA-3 FATTY ACIDS/FISH OIL 1 GRAM CAP PO SCH ×2 (09:11→21:14)
[2020-04-17] MEDS: ASPIRIN 81 MG TAB CHEW PO SCH (09:11)
[2020-04-17] MEDS: METOPROLOL TARTRATE 25 MG TAB PO SCH ×2 (09:11→21:15)
[2020-04-17] MEDS: THIAMINE 100 MG TAB PO SCH (09:11)
[2020-04-17] MEDS ORDERED: INVEGA SUS IM SCH (13:00)
[2020-04-17] MEDS: MONTELUKAST 10 MG TAB PO SCH (17:43)
[2020-04-17] MEDS: traZODone 50 MG TAB PO SCH (21:15)
--- NOTE | 2020-04-18 08:05 | Progress Note ---
Subjective Date of service: 04/18/20 Principal diagnosis: Severe manic bipolar 1 disorder with psychotic behavior Subjective Comment: The patient's medical record was reviewed and the patient's progress discussed with the nursing staff. The nurse note states the patient is alert x2 still confused The patient is asking for alcohol, she stated, "give me something strong to drink." The patient is ambulatory gait not steady, the patient denies si/hi. During my interview with the patient this morning, she is sitting in the dayroom with her eyes closed. Easily arouses. She is a/o x 2. She says she feels, "okay, but a little tired." She is calm and cooperative. She denies SI/HI. She also den ies hallucinations of any kind. She says her appetite is "very good." She says she slept "okay." Reason for continued inpatient treatment: The patient has improved, but cont inues to be disorganized, confused and impulsive. The patient is unable to care for herself. Will continue to stabilize. REVIEW OF SYSTEMS Constitutional: Negative for weight loss ENT: Negative for stridor Respiratory: Negative for cough or hemoptysis All other systems reviewed and are negative MENTAL STATUS EXAMINATION General Appearance: Dressed appropriately Behavior: Calm, cooperative. Mood: "okay" Affect: Congruent with stated mood Speech: Normal rate and rhythm Thought Process: Confused Thought Content: Suicidal Ideation: Denies Homicidal Ideation: Denies Hallucinations: Denies Delusions: None elicited Insight and Judgment: Impaired Memory/Cognition: Impaired Assessment Acute Psychosis Treatment Plan Patient will be admitted for inpatient psychiatric evaluation, medication adjustment and close monitoring The patient's behavior, mood, sleep and appetite will be closely monitored. Patient will be enrolled in individual and group therapeutic sessions and encouraged to attend. Patient will be provided with a safe and structured environment. Patient's physical health needs will be addressed by the Hospitalist. Hospitalist Consulted Labs including CBC, CMP, Lipid profile and Hemoglobin A1C ordered Social Assessment will be completed and the Equipment Monitor Phototypesetting will work with patient and family to ensure a suitable and safe disposition Medication adjustment will be made as clinically indicated Usual Wellness Zoroastrianism/Preservation: No changes made today. Continue stabilization on current regimen The patient agreed on the treatment plan, understood the risk, benefit, alternative treatment, potential consequence of no treatment, and gave informed consent. Estimated period of time patient will need to remain in the hospital: [4] Plan for post-hospital care: [Outpatient] Medications and Allergies Allergies Allergy/AdvReac Type Severity Reaction Status Date / Time No Known Allergies Allergy Unverified 04/05/20 08:38 Home Medications Medication Instructions Recorded Confirmed Last Taken Type Aspirin [Aspirin BABY CHEW TAB] 81 mg PO QDAY 04/05/20 04/11/20 04/04/20 08:00 History Montelukast [Singulair] 10 mg PO QPM 04/05/20 04/11/20 04/03/20 21:[address] [Depakote Dr] 250 mg PO BID tablet 04/10/20 04/11/20 Unknown Rx Folic Acid [Folvite] 1 mg PO QDAY tablet 04/10/20 04/11/20 Unknown Rx Insulin NPH/Regular [NovoLIN 70/30] 15 unit SUB-Q BIDDIAB units 04/10/20 04/11/20 Unknown Rx Potassium Chloride [K-Dur] 20 meq PO QDAY #3 tablet 04/10/20 04/11/20 Unknown Rx Thiamine [Vitamin B-1] 100 mg PO QDAY tablet 04/10/20 04/11/20 Unknown Rx cloNIDine-TTS PATCH [Catapres-Tts 0.3 mg TD We patch 04/10/20 04/11/20 Unknown Rx 0.2mg Patch] levETIRAcetam [Keppra] 750 mg PO BID oral.liqd 04/10/20 04/11/20 Unknown Rx risperiDONE [RisperDAL] 0.5 mg PO BID tablet 04/10/20 04/11/20 Unknown Rx traZODone [Desyrel] 50 mg PO QHS tablet 04/10/20 04/11/20 Unknown Rx Active Meds: Active Medications Aspirin (Baby Aspirin) 81 mg PO QDAY [facility] Last Admin: 04/17/20 09:11 Dose: 81 mg Documented by: Clonazepam (Klonopin) 0.5 mg PO BID [facility] Last Admin: 04/17/20 21:16 Dose: 0.5 mg Documented by: Clonidine HCl (Catapres-Tts Patch) 0.3 mg TD We [facility] Last Admin: 04/16/20 09:43 Dose: 0.3 mg Documented by: Fish Oil (Fish Oil) 2,000 mg PO BID [facility] Last Admin: 04/17/20 21:14 Dose: 2,000 mg Documented by: Folic Acid (Folvite) 1 mg PO QDAY [facility] Last Admin: 04/17/20 09:11 Dose: 1 mg Documented by: Haloperidol (Haldol) 2 mg PO BID [facility] Last Admin: 04/17/20 21:14 Dose: 2 mg Documented by: Insulin Human Isoph/Insulin Regular (Humulin 70/30) 22 unit SUB-Q BIDDIAB [facility] Last Admin: 04/17/20 17:12 Dose: 22 unit Documented by: Insulin Human Regular (Humulin R) 0 units SUB-Q ACHS [facility]; Protocol Last Admin: 04/17/20 21:17 Dose: 2 units Documented by: Levetiracetam (Keppra) 750 mg PO BID [facility] Last Admin: 04/17/20 21:14 Dose: 750 mg Documented by: Lorazepam (Ativan) 2 mg PO Q6H PRN PRN Reason: Agitation Last Admin: 04/11/20 00:13 Dose: 2 mg Documented by: Lorazepam (Ativan) 2 mg IM Q6H PRN PRN Reason: Agitation Metoprolol Tartrate (Metoprolol) 25 mg PO BID [facility] Last Admin: 04/17/20 21:15 Dose: 25 mg Documented by: Montelukast Sodium (Singulair) 10 mg PO QPM [facility] Last Admin: 04/17/20 17:43 Dose: 10 mg Documented by: Risperidone (Risperdal) 2 mg PO BID [facility] Last Admin: 04/17/20 21:15 Dose: 2 mg Documented by: Thiamine HCl (Vitamin B-1) 100 mg PO QDAY [facility] Last Admin: 04/17/20 09:11 Dose: 100 mg Documented by: Trazodone HCl (Desyrel) 50 mg PO QHS [facility] Last Admin: 04/17/20 21:15 Dose: 50 mg Documented by: Valproic Acid (Depakene Liq) 500 mg PO BID [facility] Last Admin: 04/17/20 21:00 Dose: 500 mg Documented by: Results - Results Labs/Vitals: Laboratory Last Values WBC 10.9 K/mm3 (4.5-11.0) 04/16/20 05:46 RBC 3.20 M/mm3 (3.65-5.03) L 04/16/20 05:46 Hgb 9.9 gm/dl (10.1-14.3) L 04/16/20 05:46 Hct 30.1 % (30.3-42.9) L 04/16/20 05:46 MCV 94 fl (79-97) 04/16/20 05:46 MCH 31 pg (28-32) 04/16/20 05:46 MCHC 33 % (30-34) 04/16/20 05:46 RDW 12.6 % (13.2-15.2) L 04/16/20 05:46 Plt Count 241 K/mm3 (140-440) 04/16/20 05:46 Lymph % (Auto) 16.0 % (13.4-35.0) 04/16/20 05:46 [place] % (Auto) 10.0 % (0.0-7.3) H 04/16/20 05:46 Eos % (Auto) 5.2 % (0.0-4.3) H 04/16/20 05:46 Baso % (Auto) 0.7 % (0.0-1.8) 04/16/20 05:46 Lymph # 1.7 K/mm3 (1.2-5.4) 04/16/20 05:46 [place] # 1.1 K/mm3 (0.0-0.8) H 04/16/20 05:46 Eos # 0.6 K/mm3 (0.0-0.4) H 04/16/20 05:46 Baso # 0.1 K/mm3 (0.0-0.1) 04/16/20 05:46 Seg Neutrophils % 68.1 % (40.0-70.0) 04/16/20 05:46 Seg Neutrophils # 7.4 K/mm3 (1.8-7.7) 04/16/20 05:46 Sodium 149 mmol/L (137-145) H 04/16/20 05:46 Potassium 3.3 mmol/L (3.6-5.0) L 04/16/20 05:46 Chloride 111.0 mmol/L (98-107) H 04/16/20 05:46 Carbon Dioxide 27 mmol/L (22-30) 04/16/20 05:46 Anion Gap 14 mmol/L 04/16/20 05:46 BUN 13 mg/dL (7-17) 04/16/20 05:46 Creatinine 0.4 mg/dL (0.7-1.2) L 04/16/20 05:46 Estimated GFR > 60 ml/min 04/16/20 05:46 BUN/Creatinine Ratio 33 % 04/16/20 05:46 Glucose 64 mg/dL (65-100) L 04/16/20 05:46 POC Glucose 100 (70-105) 04/18/20 07:59 Hemoglobin A1c 10.9 % (4-6) H 04/11/20 05:35 Calcium 8.5 mg/dL (8.4-10.2) 04/16/20 05:46 Total Bilirubin 0.20 mg/dL (0.1-1.2) 04/11/20 05:35 AST 17 units/L (5-40) 04/11/20 05:35 ALT 7 units/L (7-56) 04/11/20 05:35 Alkaline Phosphatase 77 units/L (35-129) 04/11/20 05:35 Total Protein 5.5 g/dL (6.3-8.2) L 04/11/20 05:35 Albumin 2.1 g/dL (3.9-5) L 04/11/20 05:35 Albumin/Globulin Ratio 0.6 % 04/11/20 05:35 Triglycerides 73 mg/dL (2-149) 04/11/20 05:35 Cholesterol 122 mg/dL (50-199) 04/11/20 05:35 LDL Cholesterol Direct 67 mg/dL (50-130) 04/11/20 05:35 HDL Cholesterol 46 mg/dL (40-59) 04/11/20 05:35 Cholesterol/HDL Ratio 2.65 % 04/11/20 05:35 Valproic Acid 54.2 ug/mL (50-100) 04/17/20 05:59 Last Vital Signs Temp 98.6 F 04/17/20 21:00 Pulse 107 H 04/17/20 21:15 Resp 20 04/17/20 21:00 BP 149/76 04/17/20 21:15 Pulse Ox 98 04/17/20 21:00
[2020-04-18] MEDS: INSULIN REGULAR, HUMAN 100 UNITS/1 ML SUB-Q SCH ×3 (10:22→16:27)
[2020-04-18] MEDS: THIAMINE 100 MG TAB PO SCH (10:23)
[2020-04-18] MEDS: INSULIN NPH/REGULAR 70/30 INJ SUB-Q SCH ×2 (10:23→16:37)
[2020-04-18] MEDS: FOLIC ACID 1 MG TAB PO SCH (10:23)
[2020-04-18] MEDS: risperiDONE 1 MG TAB PO SCH ×2 (10:24→21:34)
[2020-04-18] MEDS: HALOPERIDOL 2 MG TAB PO SCH ×2 (10:24→21:35)
[2020-04-18] MEDS: OMEGA-3 FATTY ACIDS/FISH OIL 1 GRAM CAP PO SCH ×2 (10:24→22:34)
[2020-04-18] MEDS: METOPROLOL TARTRATE 25 MG TAB PO SCH ×2 (10:24→21:36)
[2020-04-18] MEDS: levETIRAcetam 500 MG/5 ML ORAL LIQD PO SCH ×2 (10:25→21:49)
[2020-04-18] MEDS: VALPROIC ACID 250 MG/5 ML ORAL LIQD PO SCH ×2 (10:25→21:38)
[2020-04-18] MEDS: clonazePAM 0.5 MG TAB PO SCH ×2 (10:26→21:35)
[2020-04-18] MEDS: ASPIRIN 81 MG TAB CHEW PO SCH (11:12)
[2020-04-18] MEDS: MONTELUKAST 10 MG TAB PO SCH (17:59)
--- NOTE | 2020-04-18 18:46 | Event Note ---
Date: 04/18/20 Called to evaluate patient secondary to several lower extremity whelps and wheals from the mid calf to the ankle. Pruritic erythematous. No purulent drainage. Allergic reaction most likely secondary to medications. Unable to determine exact etiology at this particular time. Will treat with bilateral steroid cream Atarax for itching and will consider Medrol Dosepak in a.m.
--- NOTE | 2020-04-18 18:46 | Progress Note ---
Assessment and Plan - Patient Problems (1) Allergic reaction Current Visit: Yes Status: Acute Plan to address problem: Patient with lesions that resemble allergic reaction. Review medications. Unable to determine at this time whether medications to cause. Will start patient on high-dose steroid cream bilaterally and Atarax for itching with observation. Subjective Date of service: 04/18/20 Principal diagnosis: Severe manic bipolar 1 disorder with psychotic behavior Interval history: Called to evaluate lesions bilateral lower extremities. Pruritic Objective - Constitutional Vitals: Vital Signs - 12hr 04/18/20 08:14 Temperature 97.8 F Pulse Rate 94 H Blood Pressure 142/68 O2 Sat by Pulse 96 Oximetry General appearance: Present: no acute distress, well-nourished - EENT Eyes: PERRL, EOM intact ENT: hearing intact, clear oral mucosa Ears: bilateral: normal - Neck Neck: supple, normal ROM - Respiratory Respiratory effort: normal Respiratory: bilateral: CTA - Breasts Breasts: normal - Cardiovascular Rhythm: regular Heart Sounds: Present: S1 & S2. Absent: gallop, rub Extremities: pulses intact, No edema, normal color, Full ROM Extremity abnormal: other (Patient small pustules on bilateral lower extremities extending from ankle up to just below the knee. Erythematous slightly raised.) - Gastrointestinal General gastrointestinal: Present: soft, non-tender, non-distended, normal bowel sounds - Genitourinary Female genitourinary: normal - Integumentary Integumentary: clear, warm, dry - Musculoskeletal Musculoskeletal: 1, strength equal bilaterally - Neurologic Neurologic: moves all extremities - Psychiatric Psychiatric: memory intact, appropriate mood/affect, intact judgment & insight - Labs CBC & Chem 7: 04/16/20 05:46 04/16/20 05:46 Labs: Abnormal lab results 04/17/20 04/18/20 04/18/20 Range/Units 20:22 12:12 16:38 POC Glucose 141 H 279 H 106 H (70-105)
[2020-04-18] MEDS ORDERED: hydrOXYzine HCL 25 MG TAB PO PRN (18:47)
[2020-04-18] MEDS: traZODone 50 MG TAB PO SCH (22:34)
[2020-04-18] MEDS: TRIAMCINOLONE 0.1% CREAM 15 GM TP SCH (22:39)
[2020-04-19] MEDS: INSULIN REGULAR, HUMAN 100 UNITS/1 ML SUB-Q SCH ×5 (01:12→21:11)
--- NOTE | 2020-04-19 09:18 | Progress Note ---
Subjective Date of service: 04/19/20 Principal diagnosis: Severe manic bipolar 1 disorder with psychotic behavior Subjective Comment: The patient's medical record was reviewed and the patient's progress discussed with the nursing staff. During my interview with the patient this morning, she is sitting in the dayroom eating breakfast. She is calm and cooperative. She is confused. She describes her mood as "okay." She says she slept "pretty good." She denies SI/HI or hallucinations of any kind. She says her appetite is "okay." Reason for continued inpatient treatment: The patient has improved, but at times is impulsive and disorganized. She is unable to care for herself. REVIEW OF SYSTEMS Constitutional: Negative for weight loss ENT: Negative for stridor Respiratory: Negative for cough or hemoptysis All other systems reviewed and are negative MENTAL STATUS EXAMINATION General Appearance: Dressed appropriately Behavior: Calm, cooperative. Mood: "okay" Affect: Congruent with stated mood Speech: Normal rate and rhythm Thought Process: Confused Thought Content: Suicidal Ideation: Denies Homicidal Ideation: Denies Hallucinations: Denies Delusions: None elicited Insight and Judgment: Impaired Memory/Cognition: Impaired Assessment Acute Psychosis Treatment Plan Patient will be admitted for inpatient psychiatric evaluation, medication adjustment and close monitoring The patient's behavior, mood, sleep and appetite will be closely monitored. Patient will be enrolled in individual and group therapeutic sessions and encouraged to attend. Patient will be provided with a safe and structured environment. Patient's physical health needs will be addressed by the Hospitalist. Hospitalist Consulted Labs including CBC, CMP, Lipid profile and Hemoglobin A1C ordered Social Assessment will be completed and the B[employer]ai Culturist will work with patient and family to ensure a suitable and safe disposition Medication adjustment will be made as clinically indicated Usual Wellness Confucianism/Preservation: No changes made today. Continue stabilization on current regimen The patient agreed on the treatment plan, understood the risk, benefit, alternative treatment, potential consequence of no treatment, and gave informed consent. Estimated period of time patient will need to remain in the hospital: [3] Plan for post-hospital care: [Outpatient] Medications and Allergies Allergies Allergy/AdvReac Type Severity Reaction Status Date / Time No Known Allergies Allergy Unverified 04/05/20 08:38 Home Medications Medication Instructions Recorded Confirmed Last Taken Type Aspirin [Aspirin BABY CHEW TAB] 81 mg PO QDAY 04/05/20 04/11/20 04/04/20 08:00 History Montelukast [Singulair] 10 mg PO QPM 04/05/20 04/11/20 04/03/20 21:00 History Divalproex [Brendan Frazier] 250 mg PO BID tablet 04/10/20 04/11/20 Unknown Rx Folic Acid [Folvite] 1 mg PO QDAY tablet 04/10/20 04/11/20 Unknown Rx Insulin NPH/Regular [NovoLIN 70/30] 15 unit SUB-Q BIDDIAB units 04/10/20 04/11/20 Unknown Rx Potassium Chloride [K-Dur] 20 meq PO QDAY #3 tablet 04/10/20 04/11/20 Unknown Rx Thiamine [Vitamin B-1] 100 mg PO QDAY tablet 04/10/20 04/11/20 Unknown Rx cloNIDine-TTS PATCH [Catapres-Tts 0.3 mg TD We patch 04/10/20 04/11/20 Unknown Rx 0.2mg Patch] levETIRAcetam [Keppra] 750 mg PO BID oral.liqd 04/10/20 04/11/20 Unknown Rx risperiDONE [RisperDAL] 0.5 mg PO BID tablet 04/10/20 04/11/20 Unknown Rx traZODone [Desyrel] 50 mg PO QHS tablet 04/10/20 04/11/20 Unknown Rx Active Meds: Active Medications Aspirin (Baby Aspirin) 81 mg PO QDAY [facility] Last Admin: 04/18/20 11:12 Dose: 81 mg Documented by: Clonazepam (Klonopin) 0.5 mg PO BID [facility] Last Admin: 04/18/20 21:35 Dose: 0.5 mg Documented by: Clonidine HCl (Catapres-Tts Patch) 0.3 mg TD We [facility] Last Admin: 04/16/20 09:43 Dose: 0.3 mg Documented by: Fish Oil (Fish Oil) 2,000 mg PO BID [facility] Last Admin: 04/18/20 22:34 Dose: Not Given Documented by: Folic Acid (Folvite) 1 mg PO QDAY [facility] Last Admin: 04/18/20 10:23 Dose: 1 mg Documented by: Haloperidol (Haldol) 2 mg PO BID [facility] Last Admin: 04/18/20 21:35 Dose: 2 mg Documented by: Hydroxyzine HCl (Atarax) 25 mg PO Q6H PRN PRN Reason: Itching Insulin Human Isoph/Insulin Regular (Humulin 70/30) 22 unit SUB-Q BIDDIAB [facility] Last Admin: 04/18/20 16:37 Dose: 22 unit Documented by: Insulin Human Regular (Humulin R) 0 units SUB-Q ACHS [facility]; Protocol Last Admin: 04/19/20 01:12 Dose: Not Given Documented by: Levetiracetam (Keppra) 750 mg PO BID [facility] Last Admin: 04/18/20 21:49 Dose: 750 mg Documented by: Lorazepam (Ativan) 2 mg PO Q6H PRN PRN Reason: Agitation Last Admin: 04/11/20 00:13 Dose: 2 mg Documented by: Lorazepam (Ativan) 2 mg IM Q6H PRN PRN Reason: Agitation Metoprolol Tartrate (Metoprolol) 25 mg PO BID [facility] Last Admin: 04/18/20 21:36 Dose: 25 mg Documented by: Montelukast Sodium (Singulair) 10 mg PO QPM [facility] Last Admin: 04/18/20 17:59 Dose: 10 mg Documented by: Risperidone (Risperdal) 2 mg PO BID [facility] Last Admin: 04/18/20 21:34 Dose: 2 mg Documented by: Thiamine HCl (Vitamin B-1) 100 mg PO QDAY [facility] Last Admin: 04/18/20 10:23 Dose: 100 mg Documented by: Trazodone HCl (Desyrel) 50 mg PO QHS [facility] Last Admin: 04/18/20 22:34 Dose: 50 mg Documented by: Triamcinolone Acetonide (Kenalog) 1 applic TP BID [facility] Last Admin: 04/18/20 22:39 Dose: 1 applic Documented by: Valproic Acid (Depakene Liq) 500 mg PO BID [facility] Last Admin: 04/18/20 21:38 Dose: 500 mg Documented by: Results - Results Labs/Vitals: Laboratory Last Values WBC 10.9 K/mm3 (4.5-11.0) 04/16/20 05:46 RBC 3.20 M/mm3 (3.65-5.03) L 04/16/20 05:46 Hgb 9.9 gm/dl (10.1-14.3) L 04/16/20 05:46 Hct 30.1 % (30.3-42.9) L 04/16/20 05:46 MCV 94 fl (79-97) 04/16/20 05:46 MCH 31 pg (28-32) 04/16/20 05:46 MCHC 33 % (30-34) 04/16/20 05:46 RDW 12.6 % (13.2-15.2) L 04/16/20 05:46 Plt Count 241 K/mm3 (140-440) 04/16/20 05:46 Lymph % (Auto) 16.0 % (13.4-35.0) 04/16/20 05:46 [place] % (Auto) 10.0 % (0.0-7.3) H 04/16/20 05:46 Eos % (Auto) 5.2 % (0.0-4.3) H 04/16/20 05:46 Baso % (Auto) 0.7 % (0.0-1.8) 04/16/20 05:46 Lymph # 1.7 K/mm3 (1.2-5.4) 04/16/20 05:46 [place] # 1.1 K/mm3 (0.0-0.8) H 04/16/20 05:46 Eos # 0.6 K/mm3 (0.0-0.4) H 04/16/20 05:46 Baso # 0.1 K/mm3 (0.0-0.1) 04/16/20 05:46 Seg Neutrophils % 68.1 % (40.0-70.0) 04/16/20 05:46 Seg Neutrophils # 7.4 K/mm3 (1.8-7.7) 04/16/20 05:46 Sodium 149 mmol/L (137-145) H 04/16/20 05:46 Potassium 3.3 mmol/L (3.6-5.0) L 04/16/20 05:46 Chloride 111.0 mmol/L (98-107) H 04/16/20 05:46 Carbon Dioxide 27 mmol/L (22-30) 04/16/20 05:46 Anion Gap 14 mmol/L 04/16/20 05:46 BUN 13 mg/dL (7-17) 04/16/20 05:46 Creatinine 0.4 mg/dL (0.7-1.2) L 04/16/20 05:46 Estimated GFR > 60 ml/min 04/16/20 05:46 BUN/Creatinine Ratio 33 % 04/16/20 05:46 Glucose 64 mg/dL (65-100) L 04/16/20 05:46 POC Glucose 64 (70-105) L 04/19/20 07:55 Hemoglobin A1c 10.9 % (4-6) H 04/11/20 05:35 Calcium 8.5 mg/dL (8.4-10.2) 04/16/20 05:46 Total Bilirubin 0.20 mg/dL (0.1-1.2) 04/11/20 05:35 AST 17 units/L (5-40) 04/11/20 05:35 ALT 7 units/L (7-56) 04/11/20 05:35 Alkaline Phosphatase 77 units/L (35-129) 04/11/20 05:35 Total Protein 5.5 g/dL (6.3-8.2) L 04/11/20 05:35 Albumin 2.1 g/dL (3.9-5) L 04/11/20 05:35 Albumin/Globulin Ratio 0.6 % 04/11/20 05:35 Triglycerides 73 mg/dL (2-149) 04/11/20 05:35 Cholesterol 122 mg/dL (50-199) 04/11/20 05:35 LDL Cholesterol Direct 67 mg/dL (50-130) 04/11/20 05:35 HDL Cholesterol 46 mg/dL (40-59) 04/11/20 05:35 Cholesterol/HDL Ratio 2.65 % 04/11/20 05:35 Valproic Acid 54.2 ug/mL (50-100) 04/17/20 05:59 Last Vital Signs Temp 96.8 F L 04/18/20 20:01 Pulse 98 H 04/18/20 21:36 Resp 18 04/18/20 20:01 BP 154/72 04/18/20 21:36 Pulse Ox 99 04/18/20 20:01
[2020-04-19] MEDS: ASPIRIN 81 MG TAB CHEW PO SCH (10:15)
[2020-04-19] MEDS: HALOPERIDOL 2 MG TAB PO SCH ×2 (10:15→21:09)
[2020-04-19] MEDS: THIAMINE 100 MG TAB PO SCH (10:15)
[2020-04-19] MEDS: FOLIC ACID 1 MG TAB PO SCH (10:15)
[2020-04-19] MEDS: levETIRAcetam 500 MG/5 ML ORAL LIQD PO SCH ×2 (10:16→21:10)
[2020-04-19] MEDS: VALPROIC ACID 250 MG/5 ML ORAL LIQD PO SCH ×2 (10:16→21:11)
[2020-04-19] MEDS: clonazePAM 0.5 MG TAB PO SCH ×2 (10:16→21:09)
[2020-04-19] MEDS: OMEGA-3 FATTY ACIDS/FISH OIL 1 GRAM CAP PO SCH ×2 (10:16→21:10)
[2020-04-19] MEDS: INSULIN NPH/REGULAR 70/30 INJ SUB-Q SCH ×2 (10:17→17:07)
[2020-04-19] MEDS: METOPROLOL TARTRATE 25 MG TAB PO SCH ×2 (10:17→21:09)
[2020-04-19] MEDS: TRIAMCINOLONE 0.1% CREAM 15 GM TP SCH ×2 (10:17→21:09)
[2020-04-19] MEDS: risperiDONE 1 MG TAB PO SCH ×2 (10:18→21:10)
[2020-04-19] MEDS: MONTELUKAST 10 MG TAB PO SCH (17:26)
[2020-04-19] MEDS: traZODone 50 MG TAB PO SCH (21:10)
[2020-04-20] MEDS: INSULIN REGULAR, HUMAN 100 UNITS/1 ML SUB-Q SCH ×4 (08:22→21:50)
--- NOTE | 2020-04-20 08:24 | Progress Note ---
Subjective Date of service: 04/20/20 Principal diagnosis: Severe manic bipolar 1 disorder with psychotic behavior Subjective Comment: The patient's medical record was reviewed and the patient's progress discussed with the nursing staff. During my interview with the patient this morning, she is sitting in the dayroom. She is resting quietly. She easily arouses. She is a/o x 2. She denies SI/HI. She also denies hallucinations of any kind. She describes her mood as "good, just tired." She denies any problems with her sleep cycle or appetite. Reason for continued inpatient treatment: The patient is unable to care for herself, but has improved. Will continue to stabilize. REVIEW OF SYSTEMS Constitutional: Negative for weight loss ENT: Negative for stridor Respiratory: Negative for cough or hemoptysis All other systems reviewed and are negative MENTAL STATUS EXAMINATION General Appearance: Dressed appropriately Behavior: Calm, cooperative. Mood: "good" Affect: Congruent with stated mood Speech: Normal rate and rhythm Thought Process: Goal oriented Thought Content: Suicidal Ideation: Denies Homicidal Ideation: Denies Hallucinations: Denies Delusions: None elicited Insight and Judgment: Impaired Memory/Cognition: Impaired Assessment Acute Psychosis Treatment Plan Patient will be admitted for inpatient psychiatric evaluation, medication adjustment and close monitoring The patient's behavior, mood, sleep and appetite will be closely monitored. Patient will be enrolled in individual and group therapeutic sessions and encouraged to attend. Patient will be provided with a safe and structured environment. Patient's physical health needs will be addressed by the Hospitalist. Hospitalist Consulted Labs including CBC, CMP, Lipid profile and Hemoglobin A1C ordered Social Assessment will be completed and the [employer] Supervisor will work with patient and family to ensure a suitable and safe disposition Medication adjustment will be made as clinically indicated Usual Wellness Synagogue/Preservation: Invega Sustenna 234mg IM x 1 The patient agreed on the treatment plan, understood the risk, benefit, alternative treatment, potential consequence of no treatment, and gave informed consent. Estimated period of time patient will need to remain in the hospital: [2] Plan for post-hospital care: [Outpatient] Medications and Allergies Allergies Allergy/AdvReac Type Severity Reaction Status Date / Time No Known Allergies Allergy Unverified 04/05/20 08:38 Home Medications Medication Instructions Recorded Confirmed Last Taken Type Aspirin [Aspirin BABY CHEW TAB] 81 mg PO QDAY 04/05/20 04/11/20 04/04/20 08:00 History Montelukast [Singulair] 10 mg PO QPM 04/05/20 04/11/20 04/03/20 21:00 History Divalproex [Brendan Frazier] 250 mg PO BID tablet 04/10/20 04/11/20 Unknown Rx Folic Acid [Folvite] 1 mg PO QDAY tablet 04/10/20 04/11/20 Unknown Rx Insulin NPH/Regular [NovoLIN 70/30] 15 unit SUB-Q BIDDIAB units 04/10/20 04/11/20 Unknown Rx Potassium Chloride [K-Dur] 20 meq PO QDAY #3 tablet 04/10/20 04/11/20 Unknown Rx Thiamine [Vitamin B-1] 100 mg PO QDAY tablet 04/10/20 04/11/20 Unknown Rx cloNIDine-TTS PATCH [Catapres-Tts 0.3 mg TD We patch 04/10/20 04/11/20 Unknown Rx 0.2mg Patch] levETIRAcetam [Keppra] 750 mg PO BID oral.liqd 04/10/20 04/11/20 Unknown Rx risperiDONE [RisperDAL] 0.5 mg PO BID tablet 04/10/20 04/11/20 Unknown Rx traZODone [Desyrel] 50 mg PO QHS tablet 04/10/20 04/11/20 Unknown Rx Active Meds: Active Medications Aspirin (Baby Aspirin) 81 mg PO QDAY [facility] Last Admin: 04/19/20 10:15 Dose: 81 mg Documented by: Clonazepam (Klonopin) 0.5 mg PO BID [facility] Last Admin: 04/19/20 21:09 Dose: 0.5 mg Documented by: Clonidine HCl (Catapres-Tts Patch) 0.3 mg TD We [facility] Last Admin: 04/16/20 09:43 Dose: 0.3 mg Documented by: Fish Oil (Fish Oil) 2,000 mg PO BID [facility] Last Admin: 04/19/20 21:10 Dose: 2,000 mg Documented by: Folic Acid (Folvite) 1 mg PO QDAY [facility] Last Admin: 04/19/20 10:15 Dose: 1 mg Documented by: Haloperidol (Haldol) 2 mg PO BID [facility] Last Admin: 04/19/20 21:09 Dose: 2 mg Documented by: Hydroxyzine HCl (Atarax) 25 mg PO Q6H PRN PRN Reason: Itching Insulin Human Isoph/Insulin Regular (Humulin 70/30) 22 unit SUB-Q BIDDIAB [facility] Last Admin: 04/19/20 17:07 Dose: 22 unit Documented by: Insulin Human Regular (Humulin R) 0 units SUB-Q ACHS [facility]; Protocol Last Admin: 04/20/20 08:22 Dose: Not Given Documented by: Levetiracetam (Keppra) 750 mg PO BID [facility] Last Admin: 04/19/20 21:10 Dose: 750 mg Documented by: Lorazepam (Ativan) 2 mg PO Q6H PRN PRN Reason: Agitation Last Admin: 04/11/20 00:13 Dose: 2 mg Documented by: Lorazepam (Ativan) 2 mg IM Q6H PRN PRN Reason: Agitation Metoprolol Tartrate (Metoprolol) 25 mg PO BID [facility] Last Admin: 04/19/20 21:09 Dose: 25 mg Documented by: Montelukast Sodium (Singulair) 10 mg PO QPM [facility] Last Admin: 04/19/20 17:26 Dose: 10 mg Documented by: Risperidone (Risperdal) 2 mg PO BID [facility] Last Admin: 04/19/20 21:10 Dose: 2 mg Documented by: Thiamine HCl (Vitamin B-1) 100 mg PO QDAY [facility] Last Admin: 04/19/20 10:15 Dose: 100 mg Documented by: Trazodone HCl (Desyrel) 50 mg PO QHS [facility] Last Admin: 04/19/20 21:10 Dose: 50 mg Documented by: Triamcinolone Acetonide (Kenalog) 1 applic TP BID [facility] Last Admin: 04/19/20 21:09 Dose: 1 applic Documented by: Valproic Acid (Depakene Liq) 500 mg PO BID [facility] Last Admin: 04/19/20 21:11 Dose: 500 mg Documented by: Results - Results Labs/Vitals: Laboratory Last Values WBC 10.9 K/mm3 (4.5-11.0) 04/16/20 05:46 RBC 3.20 M/mm3 (3.65-5.03) L 04/16/20 05:46 Hgb 9.9 gm/dl (10.1-14.3) L 04/16/20 05:46 Hct 30.1 % (30.3-42.9) L 04/16/20 05:46 MCV 94 fl (79-97) 04/16/20 05:46 MCH 31 pg (28-32) 04/16/20 05:46 MCHC 33 % (30-34) 04/16/20 05:46 RDW 12.6 % (13.2-15.2) L 04/16/20 05:46 Plt Count 241 K/mm3 (140-440) 04/16/20 05:46 Lymph % (Auto) 16.0 % (13.4-35.0) 04/16/20 05:46 [place] % (Auto) 10.0 % (0.0-7.3) H 04/16/20 05:46 Eos % (Auto) 5.2 % (0.0-4.3) H 04/16/20 05:46 Baso % (Auto) 0.7 % (0.0-1.8) 04/16/20 05:46 Lymph # 1.7 K/mm3 (1.2-5.4) 04/16/20 05:46 [place] # 1.1 K/mm3 (0.0-0.8) H 04/16/20 05:46 Eos # 0.6 K/mm3 (0.0-0.4) H 04/16/20 05:46 Baso # 0.1 K/mm3 (0.0-0.1) 04/16/20 05:46 Seg Neutrophils % 68.1 % (40.0-70.0) 04/16/20 05:46 Seg Neutrophils # 7.4 K/mm3 (1.8-7.7) 04/16/20 05:46 Sodium 149 mmol/L (137-145) H 04/16/20 05:46 Potassium 3.3 mmol/L (3.6-5.0) L 04/16/20 05:46 Chloride 111.0 mmol/L (98-107) H 04/16/20 05:46 Carbon Dioxide 27 mmol/L (22-30) 04/16/20 05:46 Anion Gap 14 mmol/L 04/16/20 05:46 BUN 13 mg/dL (7-17) 04/16/20 05:46 Creatinine 0.4 mg/dL (0.7-1.2) L 04/16/20 05:46 Estimated GFR > 60 ml/min 04/16/20 05:46 BUN/Creatinine Ratio 33 % 04/16/20 05:46 Glucose 64 mg/dL (65-100) L 04/16/20 05:46 POC Glucose 97 (70-105) 04/20/20 06:50 Hemoglobin A1c 10.9 % (4-6) H 04/11/20 05:35 Calcium 8.5 mg/dL (8.4-10.2) 04/16/20 05:46 Total Bilirubin 0.20 mg/dL (0.1-1.2) 04/11/20 05:35 AST 17 units/L (5-40) 04/11/20 05:35 ALT 7 units/L (7-56) 04/11/20 05:35 Alkaline Phosphatase 77 units/L (35-129) 04/11/20 05:35 Total Protein 5.5 g/dL (6.3-8.2) L 04/11/20 05:35 Albumin 2.1 g/dL (3.9-5) L 04/11/20 05:35 Albumin/Globulin Ratio 0.6 % 04/11/20 05:35 Triglycerides 73 mg/dL (2-149) 04/11/20 05:35 Cholesterol 122 mg/dL (50-199) 04/11/20 05:35 LDL Cholesterol Direct 67 mg/dL (50-130) 04/11/20 05:35 HDL Cholesterol 46 mg/dL (40-59) 04/11/20 05:35 Cholesterol/HDL Ratio 2.65 % 04/11/20 05:35 Valproic Acid 54.2 ug/mL (50-100) 04/17/20 05:59 Last Vital Signs Temp 97.9 F 04/19/20 19: Pulse 86 04/19/20 21:09 Resp 20 04/19/20 19:23 BP 150/61 04/19/20 21:09 Pulse Ox 98 04/19/20 19:23
[2020-04-20] MEDS ORDERED: PALIPERIDONE PALMITATE 234 MG/1.5 ML SYRINGE IM ONE (10:00)
[2020-04-20] MEDS: METOPROLOL TARTRATE 25 MG TAB PO SCH ×2 (10:44→21:49)
[2020-04-20] MEDS: INSULIN NPH/REGULAR 70/30 INJ SUB-Q SCH ×3 (11:14→17:42)
[2020-04-20] MEDS: TRIAMCINOLONE 0.1% CREAM 15 GM TP SCH ×2 (11:14→21:50)
[2020-04-20] MEDS: OMEGA-3 FATTY ACIDS/FISH OIL 1 GRAM CAP PO SCH ×2 (11:15→21:50)
[2020-04-20] MEDS: ASPIRIN 81 MG TAB CHEW PO SCH (11:15)
[2020-04-20] MEDS: clonazePAM 0.5 MG TAB PO SCH ×2 (11:15→21:49)
[2020-04-20] MEDS: FOLIC ACID 1 MG TAB PO SCH (11:15)
[2020-04-20] MEDS: THIAMINE 100 MG TAB PO SCH (11:16)
[2020-04-20] MEDS: HALOPERIDOL 2 MG TAB PO SCH ×2 (11:16→21:49)
[2020-04-20] MEDS: levETIRAcetam 500 MG/5 ML ORAL LIQD PO SCH ×2 (11:16→21:51)
[2020-04-20] MEDS: VALPROIC ACID 250 MG/5 ML ORAL LIQD PO SCH ×2 (11:17→21:51)
--- NOTE | 2020-04-20 13:17 | Progress Note ---
Assessment and Plan - Patient Problems (1) Allergic reaction Current Visit: Yes Status: Acute Plan to address problem: Continue present management (2) Diabetes Current Visit: Yes Status: Acute Plan to address problem: Decrease insulin to 15 units twice daily and titrate accordingly. History Interval history: Hospital course complicated by episodes of hypoglycemia especially in the a.m. Hospitalist Physical - Constitutional Vitals: Temp Pulse Resp BP Pulse Ox 97.9 F 86 20 135/64 98 04/19/20 19:23 04/19/20 21:09 04/19/20 19:23 04/20/20 10:44 04/19/20 19:23 General appearance: Present: no acute distress, well-nourished - EENT Eyes: Present: PERRL, EOM intact ENT: hearing intact - Respiratory Respiratory effort: normal - Cardiovascular Rhythm: regular - Extremities Extremities: no ischemia, pulses intact, pulses symmetrical Peripheral Pulses: within normal limits - Abdominal General gastrointestinal: soft, non-tender, non-distended - Integumentary Integumentary: Present: clear - Psychiatric Psychiatric: other (papules lower ext) Results - Labs CBC & Chem 7: 04/16/20 05:46 04/16/20 05:46 Labs: Laboratory Last Values WBC 10.9 K/mm3 (4.5-11.0) 04/16/20 05:46 RBC 3.20 M/mm3 (3.65-5.03) L 04/16/20 05:46 Hgb 9.9 gm/dl (10.1-14.3) L 04/16/20 05:46 Hct 30.1 % (30.3-42.9) L 04/16/20 05:46 MCV 94 fl (79-97) 04/16/20 05:46 MCH 31 pg (28-32) 04/16/20 05:46 MCHC 33 % (30-34) 04/16/20 05:46 RDW 12.6 % (13.2-15.2) L 04/16/20 05:46 Plt Count 241 K/mm3 (140-440) 04/16/20 05:46 Lymph % (Auto) 16.0 % (13.4-35.0) 04/16/20 05:46 [place] % (Auto) 10.0 % (0.0-7.3) H 04/16/20 05:46 Eos % (Auto) 5.2 % (0.0-4.3) H 04/16/20 05:46 Baso % (Auto) 0.7 % (0.0-1.8) 04/16/20 05:46 Lymph # 1.7 K/mm3 (1.2-5.4) 04/16/20 05:46 [place] # 1.1 K/mm3 (0.0-0.8) H 04/16/20 05:46 Eos # 0.6 K/mm3 (0.0-0.4) H 04/16/20 05:46 Baso # 0.1 K/mm3 (0.0-0.1) 04/16/20 05:46 Seg Neutrophils % 68.1 % (40.0-70.0) 04/16/20 05:46 Seg Neutrophils # 7.4 K/mm3 (1.8-7.7) 04/16/20 05:46 Sodium 149 mmol/L (137-145) H 04/16/20 05:46 Potassium 3.3 mmol/L (3.6-5.0) L 04/16/20 05:46 Chloride 111.0 mmol/L (98-107) H 04/16/20 05:46 Carbon Dioxide 27 mmol/L (22-30) 04/16/20 05:46 Anion Gap 14 mmol/L 04/16/20 05:46 BUN 13 mg/dL (7-17) 04/16/20 05:46 Creatinine 0.4 mg/dL (0.7-1.2) L 04/16/20 05:46 Estimated GFR > 60 ml/min 04/16/20 05:46 BUN/Creatinine Ratio 33 % 04/16/20 05:46 Glucose 64 mg/dL (65-100) L 04/16/20 05:46 POC Glucose 97 (70-105) 04/20/20 06:50 Hemoglobin A1c 10.9 % (4-6) H 04/11/20 05:35 Calcium 8.5 mg/dL (8.4-10.2) 04/16/20 05:46 Total Bilirubin 0.20 mg/dL (0.1-1.2) 04/11/20 05:35 AST 17 units/L (5-40) 04/11/20 05:35 ALT 7 units/L (7-56) 04/11/20 05:35 Alkaline Phosphatase 77 units/L (35-129) 04/11/20 05:35 Total Protein 5.5 g/dL (6.3-8.2) L 04/11/20 05:35 Albumin 2.1 g/dL (3.9-5) L 04/11/20 05:35 Albumin/Globulin Ratio 0.6 % 04/11/20 05:35 Triglycerides 73 mg/dL (2-149) 04/11/20 05:35 Cholesterol 122 mg/dL (50-199) 04/11/20 05:35 LDL Cholesterol Direct 67 mg/dL (50-130) 04/11/20 05:35 HDL Cholesterol 46 mg/dL (40-59) 04/11/20 05:35 Cholesterol/HDL Ratio 2.65 % 04/11/20 05:35 Valproic Acid 54.2 ug/mL (50-100) 04/17/20 05:59 [place]/IV: Voiding Method Toilet Active Medications - Current Medications Current Medications: Generic Name Dose Route Start Last Admin Trade Name Freq PRN Reason Stop Dose Admin Aspirin 81 mg 04/11/20 10:00 04/20/20 11:15 Baby Aspirin PO 81 mg QDAY JERRY Administration Clonazepam 0.5 mg 04/11/20 11:00 04/20/20 11:15 Klonopin PO 0.5 mg BID JERRY Administration Clonidine HCl 0.3 mg 04/16/20 08:00 04/16/20 09:43 Catapres-Tts Patch TD 0.3 mg We JERRY Administration Fish Oil 2,000 mg 04/11/20 11:00 04/20/20 11:15 Fish Oil PO 2,000 mg BID JERRY Administration Folic Acid 1 mg 04/11/20 10:00 04/20/20 11:15 Folvite PO 1 mg QDAY JERRY Administration Haloperidol 2 mg 04/15/20 10:00 04/20/20 11:16 Haldol PO 2 mg BID JERRY Administration Hydroxyzine HCl 25 mg 04/18/20 18:47 Atarax PO Q6H PRN Itching Insulin Human Isoph/Insulin Regular 22 unit 04/15/20 14:16 04/20/20 11:45 Humulin 70/30 SUB-Q 22 unit BIDDIAB JERRY Administration Insulin Human Regular 0 units 04/11/20 18:00 04/20/20 11:50 Humulin R SUB-Q Not Given ACHS [facility] Protocol Levetiracetam 750 mg 04/10/20 22:00 04/20/20 11:16 Keppra PO 750 mg BID JERRY Administration Lorazepam 2 mg 04/10/20 23:41 04/11/20 00:13 Ativan PO 2 mg Q6H PRN Administration Agitation Lorazepam 2 mg 04/14/20 23:30 Ativan IM Q6H PRN Agitation Metoprolol Tartrate 25 mg 04/15/20 22:00 04/20/20 10:44 Metoprolol PO Not Given BID JERRY Montelukast Sodium 10 mg 04/11/20 18:00 04/19/20 17:26 Singulair PO 10 mg QPM JERRY Administration Thiamine HCl 100 mg 04/11/20 10:00 04/20/20 11:16 Vitamin B-1 PO 100 mg QDAY JERRY Administration Trazodone HCl 50 mg 04/13/20 22:00 04/19/20 21:10 Desyrel PO 50 mg QHS JERRY Administration Triamcinolone Acetonide 1 applic 04/18/20 22:00 04/20/20 11:14 Kenalog TP 1 applic BID JERRY Administration Valproic Acid 500 mg 04/14/20 10:00 04/20/20 11:17 Depakene Liq PO 500 mg BID JERRY Administration Nutrition/Malnutrition Assess - Dietary Evaluation Nutrition/Malnutrition Findings: Nutrition Notes Start: 04/16/20 15:07 Freq: Status: Active Protocol: Document 04/16/20 15:07 LM (Rec: 04/16/20 15:07 [id number]) Nutrition Notes Need for Assessment generated from: LOS Initial or Follow up Brief Note Subjective/Other Information Screen for LOS. Per chart, pt with 100% intakes. Nutrition Intervention Revisit per MD consult or patient Sign Off request:
[2020-04-20] MEDS: MONTELUKAST 10 MG TAB PO SCH (17:44)
[2020-04-20] MEDS: traZODone 50 MG TAB PO SCH (21:50)
[2020-04-21] MEDS: INSULIN REGULAR, HUMAN 100 UNITS/1 ML SUB-Q SCH ×4 (07:26→21:35)
[2020-04-21] MEDS: INSULIN NPH/REGULAR 70/30 INJ SUB-Q SCH ×2 (08:50→17:24)
--- NOTE | 2020-04-21 09:04 | Progress Note ---
Subjective Date of service: 04/21/20 Principal diagnosis: Severe manic bipolar 1 disorder with psychotic behavior Subjective Comment: The patient's medical record was reviewed and the patient's progress discussed with the nursing staff. During my interview with the patient this morning, she is lying in the bed resting. She easily arouses. She is oriented x 2. She is calm and cooperative. She says her night "went good and I slept well." She describes her mood as "good." The patient denies SI/HI, stating, "no, I wanna live." She denies hallucinations of any kind. Reason for continued inpatient treatment: The patient is unable to care for herself, but has improved significantly. Will continue to stabilize and prepare for discharge. REVIEW OF SYSTEMS Constitutional: Negative for weight loss ENT: Negative for stridor Respiratory: Negative for cough or hemoptysis All other systems reviewed and are negative MENTAL STATUS EXAMINATION General Appearance: Dressed appropriately Behavior: Calm, cooperative. Mood: "good" Affect: Congruent with stated mood Speech: Normal rate and rhythm Thought Process: Goal oriented Thought Content: Suicidal Ideation: Denies Homicidal Ideation: Denies Hallucinations: Denies Delusions: None elicited Insight and Judgment: Impaired Memory/Cognition: Impaired Assessment Acute Psychosis Treatment Plan Patient will be admitted for inpatient psychiatric evaluation, medication adjustment and close monitoring The patient's behavior, mood, sleep and appetite will be closely monitored. Patient will be enrolled in individual and group therapeutic sessions and encouraged to attend. Patient will be provided with a safe and structured environment. Patient's physical health needs will be addressed by the Hospitalist. Hospitalist Consulted Labs including CBC, CMP, Lipid profile and Hemoglobin A1C ordered Social Assessment will be completed and the Hospital Sales Representative will work with derek ent and family to ensure a suitable and safe disposition Medication adjustment will be made as clinically indicated Usual Wellness [place] [place]/Preservation: Decrease Haldol to 2mg daily Invega Sustenna 234mg IM x 1 given yesterday Decrease Klonopin 0.5mg po daily to decrease drowsiness The patient agreed on the treatment plan, understood the risk, benefit, alternative treatment, potential consequence of no treatment, and gave informed consent. Estimated period of time patient will need to remain in the hospital: [1] Plan for post-hospital care: [Outpatient] Medications and Allergies Allergies Allergy/AdvReac Type Severity Reaction Status Date / Time No Known Allergies Allergy Unverified 04/05/20 08:38 Home Medications Medication Instructions Recorded Confirmed Last Taken Type Aspirin [Aspirin BABY CHEW TAB] 81 mg PO QDAY 04/05/20 04/11/20 04/04/20 08:00 History Montelukast [Singulair] 10 mg PO QPM 04/05/20 04/11/20 04/03/20 21:[address] [Deplesliete Dr] 250 mg PO BID tablet 04/10/20 04/11/20 Unknown Rx Folic Acid [Folvite] 1 mg PO QDAY tablet 04/10/20 04/11/20 Unknown Rx Insulin NPH/Regular [NovoLIN 70/30] 15 unit SUB-Q BIDDIAB units 04/10/20 04/11/20 Unknown Rx Potassium Chloride [K-Dur] 20 meq PO QDAY #3 tablet 04/10/20 04/11/20 Unknown Rx Thiamine [Vitamin B-1] 100 mg PO QDAY tablet 04/10/20 04/11/20 Unknown Rx cloNIDine-TTS PATCH [Catapres-Tts 0.3 mg TD We patch 04/10/20 04/11/20 Unknown Rx 0.2mg Patch] levETIRAcetam [Keppra] 750 mg PO BID oral.liqd 04/10/20 04/11/20 Unknown Rx risperiDONE [RisperDAL] 0.5 mg PO BID tablet 04/10/20 04/11/20 Unknown Rx traZODone [Desyrel] 50 mg PO QHS tablet 04/10/20 04/11/20 Unknown Rx Active Meds: Active Medications Aspirin (Baby Aspirin) 81 mg PO QDAY [facility] Last Admin: 04/20/20 11:15 Dose: 81 mg Documented by: Clonazepam (Klonopin) 0.5 mg PO BID [facility] Last Admin: 04/20/20 21:49 Dose: 0.5 mg Documented by: Clonidine HCl (Catapres-Tts Patch) 0.3 mg TD We [facility] Last Admin: 04/16/20 09:43 Dose: 0.3 mg Documented by: Fish Oil (Fish Oil) 2,000 mg PO BID [facility] Last Admin: 04/20/20 21:50 Dose: 2,000 mg Documented by: Folic Acid (Folvite) 1 mg PO QDAY [facility] Last Admin: 04/20/20 11:15 Dose: 1 mg Documented by: Haloperidol (Haldol) 2 mg PO BID [facility] Last Admin: 04/20/20 21:49 Dose: 2 mg Documented by: Hydroxyzine HCl (Atarax) 25 mg PO Q6H PRN PRN Reason: Itching Insulin Human Isoph/Insulin Regular (Humulin 70/30) 15 unit SUB-Q BIDDIAB [facility] Last Admin: 04/21/20 08:50 Dose: 15 unit Documented by: Insulin Human Regular (Humulin R) 0 units SUB-Q ACHS [facility]; Protocol Last Admin: 04/21/20 07:26 Dose: Not Given Documented by: Levetiracetam (Keppra) 750 mg PO BID [facility] Last Admin: 04/20/20 21:51 Dose: 750 mg Documented by: Lorazepam (Ativan) 2 mg PO Q6H PRN PRN Reason: Agitation Last Admin: 04/11/20 00:13 Dose: 2 mg Documented by: Lorazepam (Ativan) 2 mg IM Q6H PRN PRN Reason: Agitation Metoprolol Tartrate (Metoprolol) 25 mg PO BID [facility] Last Admin: 04/20/20 21:49 Dose: 25 mg Documented by: Montelukast Sodium (Singulair) 10 mg PO QPM [facility] Last Admin: 04/20/20 17:44 Dose: 10 mg Documented by: Thiamine HCl (Vitamin B-1) 100 mg PO QDAY [facility] Last Admin: 04/20/20 11:16 Dose: 100 mg Documented by: Trazodone HCl (Desyrel) 50 mg PO QHS [facility] Last Admin: 04/20/20 21:50 Dose: 50 mg Documented by: Triamcinolone Acetonide (Kenalog) 1 applic TP BID [facility] Last Admin: 04/20/20 21:50 Dose: 1 applic Documented by: Valproic Acid (Depakene Liq) 500 mg PO BID [facility] Last Admin: 04/20/20 21:51 Dose: 500 mg Documented by: Results - Results Labs/Vitals: Laboratory Last Values WBC 10.9 K/mm3 (4.5-11.0) 04/16/20 05:46 RBC 3.20 M/mm3 (3.65-5.03) L 04/16/20 05:46 Hgb 9.9 gm/dl (10.1-14.3) L 04/16/20 05:46 Hct 30.1 % (30.3-42.9) L 04/16/20 05:46 MCV 94 fl (79-97) 04/16/20 05:46 MCH 31 pg (28-32) 04/16/20 05:46 MCHC 33 % (30-34) 04/16/20 05:46 RDW 12.6 % (13.2-15.2) L 04/16/20 05:46 Plt Count 241 K/mm3 (140-440) 04/16/20 05:46 Lymph % (Auto) 16.0 % (13.4-35.0) 04/16/20 05:46 [place] % (Auto) 10.0 % (0.0-7.3) H 04/16/20 05:46 Eos % (Auto) 5.2 % (0.0-4.3) H 04/16/20 05:46 Baso % (Auto) 0.7 % (0.0-1.8) 04/16/20 05:46 Lymph # 1.7 K/mm3 (1.2-5.4) 04/16/20 05:46 [place] # 1.1 K/mm3 (0.0-0.8) H 04/16/20 05:46 Eos # 0.6 K/mm3 (0.0-0.4) H 04/16/20 05:46 Baso # 0.1 K/mm3 (0.0-0.1) 04/16/20 05:46 Seg Neutrophils % 68.1 % (40.0-70.0) 04/16/20 05:46 Seg Neutrophils # 7.4 K/mm3 (1.8-7.7) 04/16/20 05:46 Sodium 149 mmol/L (137-145) H 04/16/20 05:46 Potassium 3.3 mmol/L (3.6-5.0) L 04/16/20 05:46 Chloride 111.0 mmol/L (98-107) H 04/16/20 05:46 Carbon Dioxide 27 mmol/L (22-30) 04/16/20 05:46 Anion Gap 14 mmol/L 04/16/20 05:46 BUN 13 mg/dL (7-17) 04/16/20 05:46 Creatinine 0.4 mg/dL (0.7-1.2) L 04/16/20 05:46 Estimated GFR > 60 ml/min 04/16/20 05:46 BUN/Creatinine Ratio 33 % 04/16/20 05:46 Glucose 64 mg/dL (65-100) L 04/16/20 05:46 POC Glucose 85 (70-105) 04/21/20 06:34 Hemoglobin A1c 10.9 % (4-6) H 04/11/20 05:35 Calcium 8.5 mg/dL (8.4-10.2) 04/16/20 05:46 Total Bilirubin 0.20 mg/dL (0.1-1.2) 04/11/20 05:35 AST 17 units/L (5-40) 04/11/20 05:35 ALT 7 units/L (7-56) 04/11/20 05:35 Alkaline Phosphatase 77 units/L (35-129) 04/11/20 05:35 Total Protein 5.5 g/dL (6.3-8.2) L 04/11/20 05:35 Albumin 2.1 g/dL (3.9-5) L 04/11/20 05:35 Albumin/Globulin Ratio 0.6 % 04/11/20 05:35 Triglycerides 73 mg/dL (2-149) 04/11/20 05:35 Cholesterol 122 mg/dL (50-199) 04/11/20 05:35 LDL Cholesterol Direct 67 mg/dL (50-130) 04/11/20 05:35 HDL Cholesterol 46 mg/dL (40-59) 04/11/20 05:35 Cholesterol/HDL Ratio 2.65 % 04/11/20 05:35 Valproic Acid 54.2 ug/mL (50-100) 04/17/20 05:59 Last Vital Signs Temp 98.4 F 04/20/20 19:25 Pulse 91 H 04/20/20 21:49 Resp 20 04/20/20 19:25 BP 152/67 04/20/20 21:49 Pulse Ox 98 04/20/20 19:25
[2020-04-21] MEDS: VALPROIC ACID 250 MG/5 ML ORAL LIQD PO SCH ×2 (10:39→21:38)
[2020-04-21] MEDS: OMEGA-3 FATTY ACIDS/FISH OIL 1 GRAM CAP PO SCH ×2 (10:40→21:38)
[2020-04-21] MEDS: HALOPERIDOL 2 MG TAB PO SCH (10:40)
[2020-04-21] MEDS: levETIRAcetam 500 MG/5 ML ORAL LIQD PO SCH ×2 (10:40→21:40)
[2020-04-21] MEDS: THIAMINE 100 MG TAB PO SCH (10:40)
[2020-04-21] MEDS: FOLIC ACID 1 MG TAB PO SCH (10:41)
[2020-04-21] MEDS: clonazePAM 0.5 MG TAB PO SCH (10:41)
[2020-04-21] MEDS: ASPIRIN 81 MG TAB CHEW PO SCH (10:41)
[2020-04-21] MEDS: METOPROLOL TARTRATE 25 MG TAB PO SCH ×2 (10:41→21:40)
[2020-04-21] MEDS: TRIAMCINOLONE 0.1% CREAM 15 GM TP SCH ×2 (10:41→21:37)
[2020-04-21] MEDS ORDERED: ACETAMINOPHEN 325 MG TAB PO PRN (12:21)
--- NOTE | 2020-04-21 13:29 | Progress Note ---
Assessment and Plan - Patient Problems (1) Allergic reaction Current Visit: Yes Status: Acute Plan to address problem: Continue present management (2) Diabetes Current Visit: Yes Status: Acute Plan to address problem: No further evidence of hypoglycemia since decreasing insulin. We will continue present rate. Blood sugars fair control. History Interval history: No further episodes of hypoglycemia since decrease in insulin to 15 units twice daily. Hospitalist Physical - Constitutional Vitals: Temp Pulse Resp BP Pulse Ox 98.4 F 79 20 153/73 98 04/20/20 19:25 04/21/20 10:41 04/20/20 19:25 04/21/20 10:41 04/20/20 19:25 General appearance: Present: no acute distress, well-nourished - EENT Eyes: Present: PERRL, EOM intact ENT: hearing intact - Neck Neck: Present: supple, normal ROM - Respiratory Respiratory effort: normal Respiratory: bilateral: CTA - Cardiovascular Rhythm: regular - Extremities Extremities: no ischemia, pulses intact, pulses symmetrical Peripheral Pulses: within normal limits - Abdominal General gastrointestinal: soft, non-tender - Integumentary Integumentary: Present: clear, warm, dry Results - Labs CBC & Chem 7: 04/16/20 05:46 04/16/20 05:46 Labs: Laboratory Last Values WBC 10.9 K/mm3 (4.5-11.0) 04/16/20 05:46 RBC 3.20 M/mm3 (3.65-5.03) L 04/16/20 05:46 Hgb 9.9 gm/dl (10.1-14.3) L 04/16/20 05:46 Hct 30.1 % (30.3-42.9) L 04/16/20 05:46 MCV 94 fl (79-97) 04/16/20 05:46 MCH 31 pg (28-32) 04/16/20 05:46 MCHC 33 % (30-34) 04/16/20 05:46 RDW 12.6 % (13.2-15.2) L 04/16/20 05:46 Plt Count 241 K/mm3 (140-440) 04/16/20 05:46 Lymph % (Auto) 16.0 % (13.4-35.0) 04/16/20 05:46 [place] % (Auto) 10.0 % (0.0-7.3) H 04/16/20 05:46 Eos % (Auto) 5.2 % (0.0-4.3) H 04/16/20 05:46 Baso % (Auto) 0.7 % (0.0-1.8) 04/16/20 05:46 Lymph # 1.7 K/mm3 (1.2-5.4) 04/16/20 05:46 [place] # 1.1 K/mm3 (0.0-0.8) H 04/16/20 05:46 Eos # 0.6 K/mm3 (0.0-0.4) H 04/16/20 05:46 Baso # 0.1 K/mm3 (0.0-0.1) 04/16/20 05:46 Seg Neutrophils % 68.1 % (40.0-70.0) 04/16/20 05:46 Seg Neutrophils # 7.4 K/mm3 (1.8-7.7) 04/16/20 05:46 Sodium 149 mmol/L (137-145) H 04/16/20 05:46 Potassium 3.3 mmol/L (3.6-5.0) L 04/16/20 05:46 Chloride 111.0 mmol/L (98-107) H 04/16/20 05:46 Carbon Dioxide 27 mmol/L (22-30) 04/16/20 05:46 Anion Gap 14 mmol/L 04/16/20 05:46 BUN 13 mg/dL (7-17) 04/16/20 05:46 Creatinine 0.4 mg/dL (0.7-1.2) L 04/16/20 05:46 Estimated GFR > 60 ml/min 04/16/20 05:46 BUN/Creatinine Ratio 33 % 04/16/20 05:46 Glucose 64 mg/dL (65-100) L 04/16/20 05:46 POC Glucose 110 (70-105) H 04/21/20 12:09 Hemoglobin A1c 10.9 % (4-6) H 04/11/20 05:35 Calcium 8.5 mg/dL (8.4-10.2) 04/16/20 05:46 Total Bilirubin 0.20 mg/dL (0.1-1.2) 04/11/20 05:35 AST 17 units/L (5-40) 04/11/20 05:35 ALT 7 units/L (7-56) 04/11/20 05:35 Alkaline Phosphatase 77 units/L (35-129) 04/11/20 05:35 Total Protein 5.5 g/dL (6.3-8.2) L 04/11/20 05:35 Albumin 2.1 g/dL (3.9-5) L 04/11/20 05:35 Albumin/Globulin Ratio 0.6 % 04/11/20 05:35 Triglycerides 73 mg/dL (2-149) 04/11/20 05:35 Cholesterol 122 mg/dL (50-199) 04/11/20 05:35 LDL Cholesterol Direct 67 mg/dL (50-130) 04/11/20 05:35 HDL Cholesterol 46 mg/dL (40-59) 04/11/20 05:35 Cholesterol/HDL Ratio 2.65 % 04/11/20 05:35 Valproic Acid 54.2 ug/mL (50-100) 04/17/20 05:59 Barajsa/IV: Voiding Method Toilet Active Medications - Current Medications Current Medications: Generic Name Dose Route Start Last Admin Trade Name Freq PRN Reason Stop Dose Admin Acetaminophen 650 mg 04/21/20 12:21 04/21/20 13:00 Tylenol PO 650 mg Q6H PRN Administration Pain, Mild (1-3) Aspirin 81 mg 04/11/20 10:00 04/21/20 10:41 Baby Aspirin PO 81 mg QDAY JERRY Administration Clonazepam 0.5 mg 04/21/20 10:00 04/21/20 10:41 Klonopin PO 0.5 mg DAILY JERRY Administration Clonidine HCl 0.3 mg 04/16/20 08:00 04/16/20 09:43 Catapres-Tts Patch TD 0.3 mg We JERRY Administration Fish Oil 2,000 mg 04/11/20 11:00 04/21/20 10:40 Fish Oil PO 2,000 mg BID JERRY Administration Folic Acid 1 mg 04/11/20 10:00 04/21/20 10:41 Folvite PO 1 mg QDAY JERRY Administration Haloperidol 2 mg 04/21/20 10:00 04/21/20 10:40 Haldol PO 2 mg DAILY JERRY Administration Hydroxyzine HCl 25 mg 04/18/20 18:47 Atarax PO Q6H PRN Itching Insulin Human Isoph/Insulin Regular 15 unit 04/20/20 13:17 04/21/20 08:50 Humulin 70/30 SUB-Q 15 unit BIDDIAB JERRY Administration Insulin Human Regular 0 units 04/11/20 18:00 04/21/20 12:20 Humulin R SUB-Q Not Given [facility] Protocol Levetiracetam 750 mg 04/10/20 22:00 04/21/20 10:40 Keppra PO 750 mg BID JERRY Administration Lorazepam 2 mg 04/10/20 23:41 04/11/20 00:13 Ativan PO 2 mg Q6H PRN Administration Agitation Lorazepam 2 mg 04/14/20 23:30 Ativan IM Q6H PRN Agitation Metoprolol Tartrate 25 mg 04/15/20 22:00 04/21/20 10:41 Metoprolol PO 25 mg BID JERRY Administration Montelukast Sodium 10 mg 04/11/20 18:00 04/20/20 17:44 Singulair PO 10 mg QPM JERRY Administration Thiamine HCl 100 mg 04/11/20 10:00 04/21/20 10:40 Vitamin B-1 PO 100 mg QDAY JERRY Administration Trazodone HCl 50 mg 04/13/20 22:00 04/20/20 21:50 Desyrel PO 50 mg QHS JERRY Administration Triamcinolone Acetonide 1 applic 04/18/20 22:00 04/21/20 10:41 Kenalog TP 1 applic BID JERRY Administration Valproic Acid 500 mg 04/14/20 10:00 04/21/20 10:39 Depakene Liq PO 500 mg BID JERRY Administration Nutrition/Malnutrition Assess - Dietary Evaluation Nutrition/Malnutrition Findings: Nutrition Notes Start: 04/16/20 15:07 Freq: Status: Active Protocol: Document 04/16/20 15:07 LM (Rec: 04/16/20 15:07 [id number]) Nutrition Notes Need for Assessment generated from: LOS Initial or Follow up Brief Note Subjective/Other Information Screen for LOS. Per chart, pt with 100% intakes. Nutrition Intervention Revisit per MD consult or patient Sign Off request:
[2020-04-21] MEDS: MONTELUKAST 10 MG TAB PO SCH (17:12)
[2020-04-21] MEDS: traZODone 50 MG TAB PO SCH (21:39)
[2020-04-22] MEDS: INSULIN REGULAR, HUMAN 100 UNITS/1 ML SUB-Q SCH (08:13)
[2020-04-22] MEDS: INSULIN NPH/REGULAR 70/30 INJ SUB-Q SCH (08:45)
[2020-04-22 08:55] VITALS: BP 169/75
--- NOTE | 2020-04-22 09:14 | Discharge Summary ---
Providers - Providers Date of Admission: 04/10/20 19:50 Date of discharge: 04/22/20 Attending physician: JANES OCAMPO MD 04/10/20 19:50 Consult to Physician [CONS] Routine Comment: Consulting Provider: HERMES CESPEDES Physician Instructions: Reason For Exam: Medical Mnagement Primary care physician: DAVIDA DAIGLE Hospitalization Condition: Stable Hospital course: The patient was provided inpatient psychiatric treatment with safe and supportive care, medication adjustment, adverse effect monitoring, medical evaluations, medical treatments, assessment and psycho-education. The patient's mood, cognition, behavior, moral support are improved and stabilized. St the time of discharge, the patient had no endangering behavior and no debilitating adverse effects. The patient agreed on potential consequences of no treatment and gave informed consent. Disposition: - TO HOME OR SELFCARE Time spent for discharge: 36 Allergies/Adverse Reactions: Allergies No Known Allergies Allergy (Unverified 04/05/20 08:38) Vital Signs: Last Vital Signs Temp 98.0 F 04/22/20 08:31 Pulse 90 04/22/20 08:31 Resp 18 04/22/20 08:31 BP 169/75 04/22/20 08:31 Pulse Ox 95 04/22/20 08:31 Last Lab: Laboratory Last Values WBC 10.9 K/mm3 (4.5-11.0) 04/16/20 05:46 RBC 3.20 M/mm3 (3.65-5.03) L 04/16/20 05:46 Hgb 9.9 gm/dl (10.1-14.3) L 04/16/20 05:46 Hct 30.1 % (30.3-42.9) L 04/16/20 05:46 MCV 94 fl (79-97) 04/16/20 05:46 MCH 31 pg (28-32) 04/16/20 05:46 MCHC 33 % (30-34) 04/16/20 05:46 RDW 12.6 % (13.2-15.2) L 04/16/20 05:46 Plt Count 241 K/mm3 (140-440) 04/16/20 05:46 Lymph % (Auto) 16.0 % (13.4-35.0) 04/16/20 05:46 [place] % (Auto) 10.0 % (0.0-7.3) H 04/16/20 05:46 Eos % (Auto) 5.2 % (0.0-4.3) H 04/16/20 05:46 Baso % (Auto) 0.7 % (0.0-1.8) 04/16/20 05:46 Lymph # 1.7 K/mm3 (1.2-5.4) 04/16/20 05:46 [place] # 1.1 K/mm3 (0.0-0.8) H 04/16/20 05:46 Eos # 0.6 K/mm3 (0.0-0.4) H 04/16/20 05:46 Baso # 0.1 K/mm3 (0.0-0.1) 04/16/20 05:46 Seg Neutrophils % 68.1 % (40.0-70.0) 04/16/20 05:46 Seg Neutrophils # 7.4 K/mm3 (1.8-7.7) 04/16/20 05:46 Sodium 149 mmol/L (137-145) H 04/16/20 05:46 Potassium 3.3 mmol/L (3.6-5.0) L 04/16/20 05:46 Chloride 111.0 mmol/L (98-107) H 04/16/20 05:46 Carbon Dioxide 27 mmol/L (22-30) 04/16/20 05:46 Anion Gap 14 mmol/L 04/16/20 05:46 BUN 13 mg/dL (7-17) 04/16/20 05:46 Creatinine 0.4 mg/dL (0.7-1.2) L 04/16/20 05:46 Estimated GFR > 60 ml/min 04/16/20 05:46 BUN/Creatinine Ratio 33 % 04/16/20 05:46 Glucose 64 mg/dL (65-100) L 04/16/20 05:46 POC Glucose 130 (70-105) H 04/22/20 08:56 Hemoglobin A1c 10.9 % (4-6) H 04/11/20 05:35 Calcium 8.5 mg/dL (8.4-10.2) 04/16/20 05:46 Total Bilirubin 0.20 mg/dL (0.1-1.2) 04/11/20 05:35 AST 17 units/L (5-40) 04/11/20 05:35 ALT 7 units/L (7-56) 04/11/20 05:35 Alkaline Phosphatase 77 units/L (35-129) 04/11/20 05:35 Total Protein 5.5 g/dL (6.3-8.2) L 04/11/20 05:35 Albumin 2.1 g/dL (3.9-5) L 04/11/20 05:35 Albumin/Globulin Ratio 0.6 % 04/11/20 05:35 Triglycerides 73 mg/dL (2-149) 04/11/20 05:35 Cholesterol 122 mg/dL (50-199) 04/11/20 05:35 LDL Cholesterol Direct 67 mg/dL (50-130) 04/11/20 05:35 HDL Cholesterol 46 mg/dL (40-59) 04/11/20 05:35 Cholesterol/HDL Ratio 2.65 % 04/11/20 05:35 Valproic Acid 54.2 ug/mL (50-100) 04/17/20 05:59 Core Measure Documentation - Palliative Care Palliative Care/ Comfort Measures: Not Applicable - Core Measures Any of the following diagnoses?: none Exam - Constitutional Vitals: Temp Pulse Resp BP Pulse Ox 98.0 F 90 18 169/75 95 04/22/20 08:31 04/22/20 08:31 04/22/20 08:31 04/22/20 08:31 04/22/20 08:31 General appearance: Present: no acute distress, well-nourished - EENT Eyes: Present: PERRL, EOM intact ENT: hearing intact, clear oral mucosa - Neck Neck: Present: supple, normal ROM - Respiratory Respiratory effort: normal Plan Activity: advance as tolerated Weight Bearing Status: Weight Bear as Tolerated Care Plan Goals: Maintain good and stable mental health Plan of Treatment: The patient should be compliant with medications, not to use drugs, and not to drink alcohol. The patient understands that if suicidal ideas, homicidal ideas or any endangering feeling arise, the patient should seek assistance including, but not limited to crisis hotline, and emergency room. Health Concerns: Diabetes Follow up with: DAVIDA DAIGLE MD [Primary Care Provider] - 7 Days Prescriptions: traZODone [Desyrel] 50 mg PO QHS #30 tablet Divalproex [Brendan Frazier] 250 mg PO BID #60 tablet clonazePAM [KlonoPIN] 0.5 mg PO DAILY #30 tablet
[2020-04-22] MEDS: VALPROIC ACID 250 MG/5 ML ORAL LIQD PO SCH (09:23)
[2020-04-22] MEDS: OMEGA-3 FATTY ACIDS/FISH OIL 1 GRAM CAP PO SCH (09:23)
[2020-04-22] MEDS: levETIRAcetam 500 MG/5 ML ORAL LIQD PO SCH (09:23)
[2020-04-22] MEDS: TRIAMCINOLONE 0.1% CREAM 15 GM TP SCH (09:24)
[2020-04-22] MEDS: HALOPERIDOL 2 MG TAB PO SCH (09:24)
[2020-04-22] MEDS: THIAMINE 100 MG TAB PO SCH (09:24)
[2020-04-22] MEDS: ASPIRIN 81 MG TAB CHEW PO SCH (09:24)
[2020-04-22] MEDS: clonazePAM 0.5 MG TAB PO SCH (09:24)
[2020-04-22] MEDS: FOLIC ACID 1 MG TAB PO SCH (09:25)
[2020-04-22] MEDS: METOPROLOL TARTRATE 25 MG TAB PO SCH (09:25)
== END 2020-04-22 11:14 | disposition home or self-care (01) | DRG 897 ==
LOC: UNDOADMIN 16:46 → 4A 16:46 → 5A 19:50
PROVIDERS: ADMIT Psychiatry & Neurology Psychiatry; ATTEND Psychiatry & Neurology Psychiatry
DX: F10.24 Alcohol dependence with alcohol-induced mood disorder (principal); E51.2 Wernicke's encephalopathy; F23 Brief psychotic disorder; F31.2 Bipolar disorder, current episode manic severe with psychotic features; I10 Essential (primary) hypertension; Y90.9 Presence of alcohol in blood, level not specified; F19.94 Other psychoactive substance use, unspecified with psychoactive substance-induced mood disorder; K21.9 Gastro-esophageal reflux disease without esophagitis; E11.9 Type 2 diabetes mellitus without complications; Z82.49 Family history of ischemic heart disease and other diseases of the circulatory system; G40.909 Epilepsy, unspecified, not intractable, without status epilepticus
CPT/HCPCS: 36415; 70450; 70551; 80048; 80053; 80061; 80164; 82962; 83036; 85025; G0378; J1815; J3486; Q0169

== ENCOUNTER 2021-02-05 14:44 | Inpatient (IN) | payer MEDICARE ==
[2021-02-05] MEDS ORDERED: LORazepam 2 MG/ML VIAL ONE ×3 (15:08→19:28)
[2021-02-05] MEDS ORDERED: levETIRAcetam 1000 MG/NS 0.75% 1,000 MG/100 ML BAG IV ONE (15:13)
[2021-02-05] MEDS ORDERED: SODIUM CHLORIDE 0.9% 1000 ML 1,000 ML IV ONE (15:16)
[2021-02-05] MEDS ORDERED: LORazepam 2 MG/ML VIAL IV ONE (15:32)
[2021-02-05 15:38] LABS: Hematocrit 37.8 % (30.3-42.9); Hemoglobin 12.3 gm/dl (10.1-14.3); Mean Corpuscular HGB Conc 32 % (30-34); Mean Corpuscular Volume 91 fl (79-97); Platelet Count 242 K/mm3 (140-440); Red Blood Count 4.18 M/mm3 (3.65-5.03); Red Cell Distribution Width 14.3 % (13.2-15.2)
--- NOTE | 2021-02-05 15:42 | XRay Report ---
CHEST 1 VIEW 02/05/2021 2:34 PM INDICATION / CLINICAL INFORMATION: hypertension. Recurrent seizures. COMPARISON: None available. FINDINGS: SUPPORT DEVICES: None. HEART / MEDIASTINUM: No significant abnormality. LUNGS / PLEURA: Symmetric haziness along the lung bases could be secondary to overlying soft tissues or represent true airspace disease/atelectasis. The lungs are otherwise clear. No significant pleural effusion. No pneumothorax. ADDITIONAL FINDINGS: No significant additional findings. IMPRESSION: Abnormal appearance of the lung bases as discussed above. No other acute abnormality of the chest. Pl ease correlate with the clinical findings. Signer Name: Kamari Blake MD Signed: 02/05/2021 3:37 PM Workstation Name: [id number]
[2021-02-05 15:50] LABS: INR 1.19 (0.87-1.13); Partial Thromboplastin Time 26.3 Sec. (24.2-36.6)
[2021-02-05] MEDS: LORazepam 2 MG/ML VIAL IV ONE ×2 (15:54→17:09)
[2021-02-05 16:03] LABS: Creatine Kinase MB 1.3 ng/mL (0.0-4.0)
[2021-02-05 16:04] LABS: Alanine Aminotransferase 15 units/L (7-56); Albumin 4.2 g/dL (3.9-5)
[2021-02-05 16:23] LABS: Bilirubin,Direct < 0.2 mg/dL (0-0.2)
--- NOTE | 2021-02-05 16:43 | Emergency Department Report ---
ED General Adult HPI - General Chief complaint: Seizure Stated complaint: SEIZURE Time Seen by Provider: 02/05/21 15:12 Source: EMS Mode of arrival: Stretcher Limitations: Altered Mental Status - History of Present Illness Initial comments: This is a 70-year-old female with a history of seizure disorder. Additionally she has a history of psychiatric disorder and insulin-dependent diabetes. EMS was called to her residence for a seizure. She was transported to this facility without incident. Her glucose was found to be about 300 her vital signs are stable as well as her pulse oximetry according to medic. As soon as she arrived she had a generalized seizure. Ativan was called for but by the time the medication was available patient is already stopped seizing. Keppra was ordered. She did not desaturate. However she did not regain consciousness. Shortly thereafter she had an additional generalized seizure. She was given a milligram of Ativan. Later on, she was quite altered and poorly cooperative. She was given additional Ativan to enable CT scanning. No further information is available at the time of this dictation from the patient. Review of the patient's previous medical records does indicate that she has a history of psychiatric disorder, alcohol dependency as well as previous admission for altered mental status in 2019: 69 yo female with hx of HTN, alcohol dependence who presents with altered mental status and seizure via EMS. Patient was admitted to the hospital, evaluated by neurology, placed on AED, repleted electrolytes and managed with CIWA protocols. She remains significantly confused. Consulted psychiatry for further management. Patient was placed on antipsychotic medications, required restraint and sitter at the bedside. Psychiatry then recommended inpatient psych admission for alcohol induced mood disorder. Patient was then discharged to inpatient psych unit in stable condition. 04/08: Patient is very confused. She does not know where she is and she believes that she killed her mother. Pulled out her lines this morning. Restraint placed. We will continue to follow electrolytes and replace as needed. We will also consult psych. 04/09; patient remains very confused and agitated. Psychiatry following continue to manage per psychiatry recommendation. Discharge planning when cl eared by psychiatry. 04/10: Patient is medically stable. Psychiatry recommended inpatient psych adm ission. Discharge diagnosis and management /Metabolic encephalopathy; alcohol-induced mood disorder? 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 meds, placed on clonidine patch /Hypomagnesemia; resolved /Hyponatremia; present on admission, Resolved, sodium level today within normal range /Hypokalemia; continue to replete as needed Follow electrolytes, magnesium normal range /Alcohol withdrawal symptoms; Supportive care, CIWA protocol Did not need any Ativan, patient now unrestrained /Seizure disorder; new onset[probably alcohol-related] New episodes of seizures Seizure precautions, fall precautions Antiepileptic medications, aspiration precautions Neurology following /Type 2 diabetes mellitus; moderate control Accu-Chek sliding scale coverage ADA diet Long-acting insulin as needed, A1c 10.6 Diabetic education, nutrition education when patient is more oriented -: Sudden - Related Data Home Medications Medication Instructions Recorded Confirmed Last Taken Aspirin [Aspirin BABY CHEW TAB] 81 mg PO QDAY 04/05/20 04/11/20 04/04/20 08:00 Montelukast [Singulair] 10 mg PO QPM 04/05/20 04/11/20 04/03/20 21:00 Previous Rx's Medication Instructions Recorded Last Taken Type Folic Acid [Folvite] 1 mg PO QDAY tablet 04/10/20 Unknown Rx Insulin NPH/Regular [NovoLIN 70/30] 15 unit SUB-Q BIDDIAB units 04/10/20 Unknown Rx Potassium Chloride [K-Dur] 20 meq PO QDAY #3 tablet 04/10/20 Unknown Rx Thiamine [Vitamin B-1] 100 mg PO QDAY tablet 04/10/20 Unknown Rx cloNIDine-TTS PATCH [Catapres-Tts 0.3 mg TD We patch 04/10/20 Unknown Rx 0.2mg Patch] levETIRAcetam [Keppra] 750 mg PO BID oral.liqd 04/10/20 Unknown Rx risperiDONE [RisperDAL] 0.5 mg PO BID tablet 04/10/[address] [Depakote Dr] 250 mg PO BID #60 tablet 04/22/20 Unknown Rx clonazePAM [KlonoPIN] 0.5 mg PO DAILY #30 tablet 04/22/20 Unknown Rx traZODone [Desyrel] 50 mg PO QHS #30 tablet 04/22/20 Unknown Rx Allergies Allergy/AdvReac Type Severity Reaction Status Date / Time No Known Allergies Allergy Unverified 04/05/20 08:38 ED Review of Systems ROS: Stated complaint: SEIZURE Other details as noted in HPI Comment: Unobtainable due to pts medical conditions ED Past Medical Hx - Past Medical History Hx Hypertension: Yes Hx CVA: No Hx Heart Attack/AMI: No Hx Congestive Heart Failure: No Hx Diabetes: No Hx Deep Vein Thrombosis: No Hx Pulmonary Embolism: No Hx GERD: Yes Hx Liver Disease: No Hx Renal Disease: No Hx Sickle Cell Disease: No Hx Arthritis: No Hx Headaches / Migraines: No Hx Seizures: Yes Hx Kidney Stones: No Hx Psychiatric Treatment: No Hx Asthma: No Hx COPD: No Hx Tuberculosis: No Hx Dementia: No Hx HIV: No Additional medical history: Psychiatric disorder - Social History Smoking Status: Unknown if ever smoked Substance Use Type: Alcohol - Medications Home Medications: Home Medications Medication Instructions Recorded Confirmed Last Taken Type Aspirin [Aspirin BABY CHEW TAB] 81 mg PO QDAY 04/05/20 04/11/20 04/04/20 08:00 History Montelukast [Singulair] 10 mg PO QPM 04/05/20 04/11/20 04/03/20 21:00 History Folic Acid [Folvite] 1 mg PO QDAY tablet 04/10/20 04/11/20 Unknown Rx Insulin NPH/Regular [NovoLIN 70/30] 15 unit SUB-Q BIDDIAB units 04/10/20 04/11/20 Unknown Rx Potassium Chloride [K-Dur] 20 meq PO QDAY #3 tablet 04/10/20 04/11/20 Unknown Rx Thiamine [Vitamin B-1] 100 mg PO QDAY tablet 04/10/20 04/11/20 Unknown Rx cloNIDine-TTS PATCH [Catapres-Tts 0.3 mg TD We patch 04/10/20 04/11/20 Unknown Rx 0.2mg Patch] levETIRAcetam [Keppra] 750 mg PO BID oral.liqd 04/10/20 04/11/20 Unknown Rx risperiDONE [RisperDAL] 0.5 mg PO BID tablet 04/10/20 04/11/20 Unknown Rx Divalproex [Brendan Frazier] 250 mg PO BID #60 tablet 04/22/20 Unknown Rx clonazePAM [KlonoPIN] 0.5 mg PO DAILY #30 tablet 04/22/20 Unknown Rx traZODone [Desyrel] 50 mg PO QHS #30 tablet 04/22/20 Unknown Rx ED Physical Exam - General Limitations: Altered Mental Status General appearance: other (Presented apparently postictal and then became ictal) - Head Head exam: Present: atraumatic - Eye Eye exam: Present: other (Conjugate deviation). Absent: scleral icterus - ENT ENT exam: Present: mucous membranes moist - Neck Neck exam: Present: normal inspection - Respiratory Respiratory exam: Present: normal lung sounds bilaterally - Cardiovascular Cardiovascular Exam: Present: regular rate, normal rhythm. Absent: systolic murmur, diastolic murmur, rubs, gallop - GI/Abdominal GI/Abdominal exam: Absent: soft, distended - Extremities Exam Extremities exam: Present: normal inspection - Back Exam Back exam: Present: other (Unable to examine) - Neurological Exam Neurological exam: Present: altered - Psychiatric Psychiatric exam: Present: other (Not applicable) ED Course Vital Signs 02/05/21 16:20 Pulse Rate 95 H Respiratory 15 Rate Blood Pressure 108/60 [Right] O2 Sat by Pulse 97 Oximetry - Reevaluation(s) Reevaluation #1: Patient was loaded with Keppra and given Ativan. CT of the head showed nothing acute. Chest x-ray no acute process. She was found to have a metabolic acidosis which was certainly anticipated considering her recurrent seizures. In addition she was found to have hyperkalemia and hyperglycemia. She was given a dose of insulin as well as bicarb. A repeat BMP is ordered. Lactic acid as well as blood cultures have been ordered. Dr. Swift was notified of the need for hospitalization. 02/05/21 18:21 Reevaluation #2: On reassessment the patient is answering questions. She is reasonably alert. She is without complaint. 02/05/21 18:31 ED Medical Decision Making - Lab Data Result diagrams: 02/05/21 15:20 02/05/21 15:20 Laboratory Results - last 24 hr 02/05/21 02/05/21 02/05/21 15:20 15:20 15:20 WBC 18.5 H RBC 4.18 Hgb 12.3 Hct 37.8 MCV 91 MCH 29 MCHC 32 RDW 14.3 Plt Count 242 PT 15.1 H INR 1.19 H APTT 26.3 Sodium 143 Potassium 6.3 H* Chloride 104.9 Carbon Dioxide 14 L Anion Gap 30 BUN 16 Creatinine 1.1 Estimated GFR 60 BUN/Creatinine Ratio 15 Glucose 375 H Lactic Acid Calcium 10.0 Magnesium Total Bilirubin Direct Bilirubin Indirect Bilirubin AST ALT Alkaline Phosphatase Ammonia Total Creatine Kinase CK-MB (CK-2) CK-MB (CK-2) Rel Index Troponin T NT-Pro-B Natriuret Pep Total Protein Albumin Albumin/Globulin Ratio Valproic Acid Plasma/Serum Alcohol 02/05/21 02/05/21 02/05/21 15:20 15:20 15:20 WBC RBC Hgb Hct MCV MCH MCHC RDW Plt Count PT INR APTT Sodium Potassium Chloride Carbon Dioxide Anion Gap BUN Creatinine Estimated GFR BUN/Creatinine Ratio Glucose Lactic Acid Calcium Magnesium 1.80 Total Bilirubin 0.30 Direct Bilirubin < 0.2 Indirect Bilirubin 0.1 AST 18 ALT 15 Alkaline Phosphatase 181 H Ammonia 156.0 H Total Creatine Kinase 53 CK-MB (CK-2) 1.3 CK-MB (CK-2) Rel Index 2.4 Troponin T < 0.010 NT-Pro-B Natriuret Pep 214.6 Total Protein 8.6 H Albumin 4.2 Albumin/Globulin Ratio 1.0 Valproic Acid Plasma/Serum Alcohol < 0.01 02/05/21 02/05/21 15:20 17:46 WBC RBC Hgb Hct MCV MCH MCHC RDW Plt Count PT INR APTT Sodium Potassium Chloride Carbon Dioxide Anion Gap BUN Creatinine Estimated GFR BUN/Creatinine Ratio Glucose Lactic Acid 3.80 H* Calcium Magnesium Total Bilirubin Direct Bilirubin Indirect Bilirubin AST ALT Alkaline Phosphatase Ammonia Total Creatine Kinase CK-MB (CK-2) CK-MB (CK-2) Rel Index Troponin T NT-Pro-B Natriuret Pep Total Protein Albumin Albumin/Globulin Ratio Valproic Acid < 2.8 L Plasma/Serum Alcohol - Radiology Data Radiology results: report reviewed (CT the head no acute process, haziness at the bases I believe is secondary to overlying soft tissue on chest x-ray see radiologist report) Critical Care Time: Yes Critical care time in (mins) excluding proc time.: 80 Critical care attestation.: If time is entered above; I have spent that time in minutes in the direct care of this critically ill patient, excluding procedure time. ED Disposition Clinical Impression: Status epilepticus, Severe manic bipolar 1 disorder with psychotic behavior, Hepatic encephalopathy, Lactic acidosis, Hyperkalemia Hyperglycemia due to type 2 diabetes mellitus Qualifiers: Diabetes mellitus intermodal owner operator truck driver insulin use: with intermodal owner operator truck driver use Qualified Code(s): E11.65 - Type 2 diabetes mellitus with hyperglycemia; Z79.4 - bed bug exterminator (current) use of insulin Disposition: OP ADMIT IP TO THIS HOSP Is pt being admited?: Yes Does the pt Need Aspirin: Yes Condition: Stable Instructions: Diabetes Mellitus Type 2 in Adults (ED) Referrals: PRIMARY CARE, [Primary Care Provider] - 3-5 Days Time of Disposition: 18:31
[2021-02-05] MEDS ORDERED: INSULIN REGULAR, HUMAN 100 UNITS/1 ML IV ONE (16:49)
[2021-02-05] MEDS ORDERED: SODIUM BICARB 8.4% 50 MEQ/50 ML SYRINGE IV ONE (16:50)
--- NOTE | 2021-02-05 17:42 | Cat Scan Report ---
CT head/brain wo con INDICATION / CLINICAL INFORMATION: 70 years Female; recurrent sz. TECHNIQUE: Routine CT head without contrast. All CT scans at this location are performed using CT dos e reduction for ALARA by means of automated exposure control. COMPARISON: The study is compared to the previous CT of 04/12/2020. FINDINGS: BRAIN / INTRACRANIAL CONTENTS: The motion degrades the image quality. However, there is continued josephine triculomegaly which appears to correlate with the previous exam given the differences in technique an d degree of motion. There also appears be continued moderate cerebral white matter disease, most notably involving perive ntricular regions indicative of microvascular angiopathy. The findings also appear to correlate with the prior study. There is no definitive CT evidence of acute intracranial hemorrhage or significant m ass effect. There also appear to be white matter changes involving visualized left loren. ORBITS: No significant abnormality of visualized orbits. SINUSES / MASTOIDS: No significant abnormality in the visualized paranasal sinuses or mastoid air callum ls. CRANIOCERVICAL JUNCTION: No significant abnormality. ADDITIONAL FINDINGS: None. IMPRESSION: 1. The motion degrades the image quality. However, there is continued ventriculomegaly and microvascu lar angiopathy as detailed above without clear CT evidence of acute intracranial hemorrhage. Signer Name: Thony Way MD Signed: 02/05/2021 5:38 PM Workstation Name: [id number]
[2021-02-05] MEDS ORDERED: ASPIRIN 81 MG TAB CHEW PO ONE (18:32)
[2021-02-05] MEDS ORDERED: LORazepam 2 MG/ML VIAL IM ONE (19:28)
[2021-02-05 19:31] LABS: Blood Urea Nitrogen 15 mg/dL (7-17); Calcium 9.5 mg/dL (8.4-10.2); Hemolysis Index 7
[2021-02-05 19:59] LABS: BUN/Creatinine Ratio 21
--- NOTE | 2021-02-05 21:20 | History and Physical Report ---
History of Present Illness Date of examination: 02/05/21 Date of admission: 02/05/21 18:34 Chief complaint: Recurrent seizures since a.m. History of present illness: 70-year-old female with history of seizure disorder, insulin-dependent diabetes and history of psychiatric disorder was transported by EMS for recurrent seizures. Ativan was given in route. Patient stopped seizing while in the emergency room. But patient was with altered sensorium and hence admission. After couple hours patient regained her generalized [id number] in nature. Altered and lethargic. Patient being admitted for post ictal state and decreased mental status Review of the patient's previous medical records does indicate that she has a history of psychiatric disorder, alcohol dependency as well as previous admission for altered mental status in March of 2020: - Past Medical History --Hypertension: Yes --GERD: Yes --Seizures: Yes Additional medical history: Psychiatric disorder - Social History Smoking Status: Unknown if ever smoked Substance Use Type: Alcohol surgical history --N/a Family history --N/a - Medications Home Medications: Home Medications Medication Instructions Recorded Confirmed Last Taken Type Aspirin [Aspirin BABY CHEW TAB] 81 mg PO QDAY 04/05/20 04/11/20 04/04/20 08:00 History Montelukast [Singulair] 10 mg PO QPM 04/05/20 04/11/20 04/03/20 21:00 History Folic Acid [Folvite] 1 mg PO QDAY tablet 04/10/20 04/11/20 Unknown Rx Insulin NPH/Regular [NovoLIN 70/30] 15 unit SUB-Q BIDDIAB units 04/10/20 04/11/20 Unknown Rx Potassium Chloride [K-Dur] 20 meq PO QDAY #3 tablet 04/10/20 04/11/20 Unknown Rx Thiamine [Vitamin B-1] 100 mg PO QDAY tablet 04/10/20 04/11/20 Unknown Rx cloNIDine-TTS PATCH [Catapres-Tts 0.3 mg TD We patch 04/10/20 04/11/20 Unknown Rx 0.2mg Patch] levETIRAcetam [Keppra] 750 mg PO BID oral.liqd 04/10/20 04/11/20 Unknown Rx risperiDONE [RisperDAL] 0.5 mg PO BID tablet 04/10/20 04/11/[address] Keegan Frazier] 250 mg PO BID #60 tablet 04/22/20 Unknown Rx clonazePAM [KlonoPIN] 0.5 mg PO DAILY #30 tablet 04/22/20 Unknown Rx traZODone [Desyrel] 50 mg PO QHS #30 tablet 04/22/20 Unknown Rx Review of Systems ROS: Stated complaint: SEIZURE Other details as noted in HPI Comment: Unobtainable due to pts medical conditions Medications and Allergies Allergies Allergy/AdvReac Type Severity Reaction Status Date / Time No Known Allergies Allergy Unverified 04/05/20 08:38 Home Medications Medication Instructions Recorded Confirmed Last Taken Type Aspirin [Aspirin BABY CHEW TAB] 81 mg PO QDAY 04/05/20 04/11/20 04/04/20 08:00 H istory Montelukast [Singulair] 10 mg PO QPM 04/05/20 04/11/20 04/03/20 21:00 History Folic Acid [Folvite] 1 mg PO QDAY tablet 04/10/20 04/11/20 Unknown Rx Insulin NPH/Regular [NovoLIN 70/30] 15 unit SUB-Q BIDDIAB units 04/10/20 04/11/20 Unknown Rx Potassium Chloride [K-Dur] 20 meq PO QDAY #3 tablet 04/10/20 04/11/20 Unknown Rx Thiamine [Vitamin B-1] 100 mg PO QDAY tablet 04/10/20 04/11/20 Unknown Rx cloNIDine-TTS PATCH [Catapres-Tts 0.3 mg TD We patch 04/10/20 04/11/20 Unknown Rx 0.2mg Patch] levETIRAcetam [Keppra] 750 mg PO BID oral.liqd 04/10/20 04/11/20 Unknown Rx risperiDONE [RisperDAL] 0.5 mg PO BID tablet 04/10/20 04/11/[address] Keegan Frazier] 250 mg PO BID #60 tablet 04/22/20 Unknown Rx clonazePAM [KlonoPIN] 0.5 mg PO DAILY #30 tablet 04/22/20 Unknown Rx traZODone [Desyrel] 50 mg PO QHS #30 tablet 04/22/20 Unknown Rx Active Meds: Active Medications Sodium Chloride (Nacl 0.9% 1000 Ml) 1,000 mls @ 125 mls/hr IV ONCE ONE Stop: 02/05/21 23:15 Last Admin: 02/05/21 15:30 Dose: 125 mls/hr Documented by: Exam - Constitutional Vitals: Temp Pulse Resp BP Pulse Ox 95 H 15 108/60 97 02/05/21 16:20 02/05/21 16:20 02/05/21 16:20 02/05/21 16:20 General appearance: Present: no acute distress, well-nourished - EENT Eyes: Present: PERRL ENT: hearing intact, clear oral mucosa - Neck Neck: Present: supple, normal ROM - Respiratory Respiratory effort: normal Respiratory: bilateral: CTA - Cardiovascular Heart rate: 78 Rhythm: regular Heart Sounds: Present: S1 & S2. Absent: rub, click - Extremities Extremities: pulses symmetrical, No edema Peripheral Pulses: within normal limits - Abdominal General gastrointestinal: Present: soft, non-tender, non-distended, normal bowel sounds Female genitourinary: Present: normal - Integumentary Integumentary: Present: clear, warm, dry - Musculoskeletal Musculoskeletal: generalized weakness - Psychiatric Psychiatric: other (Lethargic) - Neurologic Neurologic: CNII-XII intact, moves all extremities, other (Lethargic) - Allied Health Allied health notes reviewed: nursing, case management HEART Score - HEART Score Troponin: Troponin T < 0.010 ng/mL (0.00-0.029) 02/05/21 15:20 Results - Labs CBC & Chem 7: 02/05/21 15:20 02/05/21 19:05 Labs: Laboratory Last Values WBC 18.5 K/mm3 (4.5-11.0) H 02/05/21 15:20 RBC 4.18 M/mm3 (3.65-5.03) 02/05/21 15:20 Hgb 12.3 gm/dl (10.1-14.3) 02/05/21 15:20 Hct 37.8 % (30.3-42.9) 02/05/21 15:20 MCV 91 fl (79-97) 02/05/21 15:20 MCH 29 pg (28-32) 02/05/21 15:20 MCHC 32 % (30-34) 02/05/21 15:20 RDW 14.3 % (13.2-15.2) 02/05/21 15:20 Plt Count 242 K/mm3 (140-440) 02/05/21 15:20 PT 15.1 Sec. (12.2-14.9) H 02/05/21 15:20 INR 1.19 (0.87-1.13) H 02/05/21 15:20 APTT 26.3 Sec. (24.2-36.6) 02/05/21 15:20 Sodium 141 mmol/L (137-145) 02/05/21 19:05 Potassium 3.9 mmol/L (3.6-5.0) D 02/05/21 19:05 Chloride 102.5 mmol/L (98-107) 02/05/21 19:05 Carbon Dioxide 27 mmol/L (22-30) D 02/05/21 19:05 Anion Gap 15 mmol/L 02/05/21 19:05 BUN 15 mg/dL (7-17) 02/05/21 19:05 Creatinine 0.7 mg/dL (0.6-1.2) 02/05/21 19:05 Estimated GFR > 60 ml/min 02/05/21 19:05 BUN/Creatinine Ratio 21 % 02/05/21 19:05 Glucose 186 mg/dL (65-100) H 02/05/21 19:05 Lactic Acid 2.30 mmol/L (0.7-2.0) H* 02/05/21 19:05 Calcium 9.5 mg/dL (8.4-10.2) 02/05/21 19:05 Magnesium 1.80 mg/dL (1.7-2.3) 02/05/21 15:20 Total Bilirubin 0.30 mg/dL (0.1-1.2) 02/05/21 15:20 Direct Bilirubin < 0.2 mg/dL (0-0.2) 02/05/21 15:20 Indirect Bilirubin 0.1 mg/dL 02/05/21 15:20 AST 18 units/L (5-40) 02/05/21 15:20 ALT 15 units/L (7-56) 02/05/21 15:20 Alkaline Phosphatase 181 units/L (35-129) H 02/05/21 15:20 Ammonia 156.0 umol/L (25-60) H 02/05/21 15:20 Total Creatine Kinase 53 units/L (30-135) 02/05/21 15:20 CK-MB (CK-2) 1.3 ng/mL (0.0-4.0) 02/05/21 15:20 CK-MB (CK-2) Rel Index 2.4 (0-4) 02/05/21 15:20 Troponin T < 0.010 ng/mL (0.00-0.029) 02/05/21 15:20 NT-Pro-B Natriuret Pep 214.6 pg/mL (0-900) 02/05/21 15:20 Total Protein 8.6 g/dL (6.3-8.2) H 02/05/21 15:20 Albumin 4.2 g/dL (3.9-5) 02/05/21 15:20 Albumin/Globulin Ratio 1.0 % 02/05/21 15:20 Valproic Acid < 2.8 ug/mL (50-100) L 02/05/21 15:20 Plasma/Serum Alcohol < 0.01 % (0-0.07) 02/05/21 15:20 Microbiology: Microbiology 02/05/21 17:46 Peripheral/Venous Blood Culture - Preliminary Culture in Progress 02/05/21 17:48 Peripheral/Venous Blood Culture - Preliminary Culture in Progress - Imaging and Cardiology EKG: report reviewed (Sinus rhythm no acute ST-T wave changes) Imaging and Cardiology: Chest x-ray Symmetric haziness along the lung bases could be secondary to overlying soft tissues of the present to airspace disease/atelectasis. Lungs are otherwise clear . Final impression Abnormal appearance of the lung dialysis as discussed above. No other acute abnormality of the chest. Head CT Motion degrades the very image quality. However there is continued ventriculomegaly and microvascular angiopathy as detailed above without clear evidence of acute intracranial hemorrhage. Assessment and Plan Advance Directives: Yes (Full code) VTE prophylaxis?: Chemical Plan of care discussed with patient/family: Yes - Patient Problems (1) Status epilepticus Current Visit: Yes Status: Acute Plan to address problem: Patient initiated on IV Keppra Patient is noncompliant as evidenced by low valproic acid level To be counseled about compliance by primary team when she is more alert and oriented Neurology consult requested Patient to be transitioned to oral Keppra (2) Hepatic encephalopathy Current Visit: Yes Status: Acute Plan to address problem: Ammonia level is high Lactulose initiated Repeat ammonia level in the morning (3) Hyperkalemia Current Visit: Yes Status: Acute Plan to address problem: Will repeat the BMP because of hemolysis (4) Hypertension Current Visit: Yes Status: Chronic Qualifiers: Hypertension type: essential hypertension Qualified Code(s): I10 - Essential (primary) hypertension Plan to address problem: Continue antihypertensives and adjust medications as necessary (5) IDDM (insulin dependent diabetes mellitus) Current Visit: Yes Status: Chronic Plan to address problem: Continue home insulin and coverage Check hemoglobin A1c and adjust medications (6) Asthma Current Visit: Yes Status: Inactive Qualifiers: Asthma persistence: unspecified Plan to address problem: Continue Singulair for prevention of asthma attacks (7) DVT prophylaxis Current Visit: Yes Status: Acute Plan to address problem: On heparin and GI prophylaxis
[2021-02-05] MEDS ORDERED: ACETAMINOPHEN 325 MG TAB PO PRN (21:24)
[2021-02-05] MEDS ORDERED: ONDANSETRON 4 MG/2 ML INJ IV PRN (21:24)
[2021-02-05] MEDS ORDERED: METOCLOPRAMIDE 10 MG/2 ML INJ IV PRN (21:25)
[2021-02-05] MEDS ORDERED: HYDROmorphone 1 MG/1 ML INJ IV PRN (21:25)
[2021-02-05] MEDS ORDERED: oxyCODONE /ACETAMINOPHEN 5-325MG TAB PO PRN (21:25)
[2021-02-05] MEDS ORDERED: SODIUM CHLORIDE 0.9% 1000 ML 1,000 ML IV SCH (21:30)
[2021-02-05] MEDS: LACTULOSE 20 GM/30 ML ORAL LIQD PO SCH (23:45)
[2021-02-05] MEDS: traZODone 50 MG TAB PO SCH (23:45)
[2021-02-05] MEDS: DIVALPROEX DR 250 MG TAB PO SCH (23:45)
[2021-02-05] MEDS: risperiDONE 0.25 MG TAB PO SCH (23:46)
[2021-02-05] MEDS: POTASSIUM CHLORIDE ER 20 MEQ TAB PO SCH (23:46)
[2021-02-05] MEDS: INSULIN LISPRO 100 UNIT/ML SUB-Q SCH (23:46)
[2021-02-05] MEDS: FAMOTIDINE 20 MG/2 ML INJ IV SCH (23:46)
[2021-02-05] MEDS: HEPARIN 5,000 UNIT/1 ML VIAL SUB-Q SCH (23:47)
[2021-02-06] MEDS: LACTULOSE 20 GM/30 ML ORAL LIQD PO SCH ×3 (06:23→21:27)
[2021-02-06] MEDS: levETIRAcetam 1,000 MG in DEXTROSE 5% IN WATER 100 ML IV SCH ×2 (06:31→17:00)
[2021-02-06 07:58] LABS: Hematocrit 36.1 % (30.3-42.9); Hemoglobin 11.9 gm/dl (10.1-14.3); Mean Corpuscular HGB Conc 33 % (30-34); Mean Corpuscular Volume 89 fl (79-97); Platelet Count 188 K/mm3 (140-440); Red Blood Count 4.07 M/mm3 (3.65-5.03); Red Cell Distribution Width 14.1 % (13.2-15.2)
[2021-02-06 07:59] LABS: Alanine Aminotransferase 11 units/L (7-56); Albumin 3.7 g/dL (3.9-5); Blood Urea Nitrogen 13 mg/dL (7-17); Calcium 9.4 mg/dL (8.4-10.2); Hemolysis Index 77
[2021-02-06] MEDS: INSULIN LISPRO 100 UNIT/ML SUB-Q SCH ×3 (08:09→21:43)
[2021-02-06] MEDS: INSULIN NPH/REGULAR 70/30 INJ SUB-Q SCH ×2 (08:09→18:00)
--- NOTE | 2021-02-06 08:13 | Consultation ---
History of Present Illness Consult date: 02/06/21 Reason for Consult: Seizure Chief complaint: Seizure History of present illness: 70 yo female with seizure d/o, dm, bipolar d/o, who presents with a seizure at her residence and then witnessed seizure(s) in the ED. Patient was loaded with Keppra and also received Ativan 1 mg. Past History Past Medical History: seizures, other (bipolar d/o) Medications and Allergies Allergies Allergy/AdvReac Type Severity Reaction Status Date / Time No Known Allergies Allergy Unverified 04/05/20 08:38 Home Medications Medication Instructions Recorded Confirmed Last Taken Type Aspirin [Aspirin BABY CHEW TAB] 81 mg PO QDAY 04/05/20 04/11/20 04/04/20 08:00 History Montelukast [Singulair] 10 mg PO QPM 04/05/20 04/11/20 04/03/20 21:00 History Folic Acid [Folvite] 1 mg PO QDAY tablet 04/10/20 04/11/20 Unknown Rx Insulin NPH/Regular [NovoLIN 70/30] 15 unit SUB-Q BIDDIAB units 04/10/20 04/11/20 Unknown Rx Potassium Chloride [K-Dur] 20 meq PO QDAY #3 tablet 04/10/20 04/11/20 Unknown Rx Thiamine [Vitamin B-1] 100 mg PO QDAY tablet 04/10/20 04/11/20 Unknown Rx cloNIDine-TTS PATCH [Catapres-Tts 0.3 mg TD We patch 04/10/20 04/11/20 Unknown Rx 0.2mg Patch] levETIRAcetam [Keppra] 750 mg PO BID oral.liqd 04/10/20 04/11/20 Unknown Rx risperiDONE [RisperDAL] 0.5 mg PO BID tablet 04/10/20 04/11/[address] [Depakote Dr] 250 mg PO BID #60 tablet 04/22/20 Unknown Rx clonazePAM [KlonoPIN] 0.5 mg PO DAILY #30 tablet 04/22/20 Unknown Rx traZODone [Desyrel] 50 mg PO QHS #30 tablet 04/22/20 Unknown Rx Active Meds: Active Medications Acetaminophen (Acetaminophen 325 Mg Tab) 650 mg PO Q4H PRN PRN Reason: Pain MILD(1-3)/Fever >100.5/DENISE Aspirin (Aspirin 81 Mg Tab Chew) 81 mg PO QDAY [facility] Clonazepam (Clonazepam 0.5 Mg Tab) 0.5 mg PO DAILY [facility] Clonidine HCl (Clonidine Tts 0.2 Mg/24 Hr Patch) 0.3 mg TD We [facility] Divalproex Sodium (Divalproex Dr 250 Mg Tab) 250 mg PO BID [facility] Last Admin: 02/05/21 23:45 Dose: 250 mg Documented by: Famotidine (Famotidine 20 Mg/2 Ml Inj) 20 mg IV BID [facility] Last Admin: 02/05/21 23:46 Dose: 20 mg Documented by: Folic Acid (Folic Acid 1 Mg Tab) 1 mg PO QDAY [facility] Heparin Sodium (Porcine) (Heparin 5,000 Unit/1 Ml Vial) 5,000 unit SUB-Q Q12HR [facility] Last Admin: 02/05/21 23:47 Dose: Not Given Documented by: Hydromorphone HCl (Hydromorphone 1 Mg/1 Ml Inj) 0.5 mg IV Q3H PRN PRN Reason: Pain , Severe (7-10) Sodium Chloride (Nacl 0.9% 1000 Ml) 1,000 mls @ 75 mls/hr IV DIRECT [facility] Stop: 02/06/21 12:00 Levetiracetam 1,000 mg/ (Dextrose) 110 mls @ 400 mls/hr IV Q12H [facility] Last Admin: 02/06/21 06:31 Dose: 400 mls/hr Documented by: Insulin Human Isoph/Insulin Regular (Insulin Nph/Regular 70/30 Inj) 15 unit SUB-Q BIDDIAB [facility] Last Admin: 02/06/21 08:09 Dose: 15 unit Documented by: Insulin Human Lispro (Insulin Lispro 100 Unit/Ml) 0 unit SUB-Q ACHS [facility]; Protocol Last Admin: 02/06/21 08:09 Dose: 4 unit Documented by: Lactulose (Lactulose 20 Gm/30 Ml Oral Liqd) 20 gm PO Q8H [facility] Last Admin: 02/06/21 06:23 Dose: 20 gm Documented by: Metoclopramide HCl (Metoclopramide 10 Mg/2 Ml Inj) 10 mg IV Q3H PRN PRN Reason: Nausea And Vomiting Montelukast Sodium (Montelukast 10 Mg Tab) 10 mg PO QPM [facility] Ondansetron HCl (Ondansetron 4 Mg/2 Ml Inj) 4 mg IV Q8H PRN PRN Reason: Nausea And Vomiting Oxycodone/Acetaminophen (Oxycodone /Acetaminophen 5-325mg Tab) 1 tab PO Q6H PRN PRN Reason: Pain, Moderate (4-6) Potassium Chloride (Potassium Chloride Er 20 Meq Tab) 20 meq PO QDAY [facility] Last Admin: 02/05/21 23:46 Dose: Not Given Documented by: Risperidone (Risperidone 0.25 Mg Tab) 0.5 mg PO BID [facility] Last Admin: 02/05/21 23:46 Dose: 0.5 mg Documented by: Sodium Chloride (Sodium Chloride 0.9% 10 Ml Flush Syringe) 10 ml IV BID [facility] Last Admin: 02/05/21 23:46 Dose: 10 ml Documented by: Sodium Chloride (Sodium Chloride 0.9% 10 Ml Flush Syringe) 10 ml IV PRN PRN PRN Reason: LINE FLUSH Thiamine HCl (Thiamine 100 Mg Tab) 100 mg PO QDAY [facility] Trazodone HCl (Trazodone 50 Mg Tab) 50 mg PO QHS [facility] Last Admin: 02/05/21 23:45 Dose: 50 mg Documented by: Review of Systems ROS unobtainable: due to mental status All systems: negative (as per HPI;) Physical Examination - Vital Signs Vital Signs: Vital Signs Pulse Resp BP Pulse Ox 95 H 15 108/60 97 02/05/21 16:20 02/05/21 16:20 02/05/21 16:20 02/05/21 16:20 - Physical Exam Narrative exam: Televideo not available at present. Results - Laboratory Findings CBC and BMP: 02/06/21 07:13 02/06/21 07:13 Abnormal Lab Findings: Abnormal Labs 02/05/21 02/05/21 02/05/21 15:20 15:20 15:20 WBC 18.5 H PT 15.1 H INR 1.19 H Potassium 6.3 H* Carbon Dioxide 14 L Glucose 375 H POC Glucose Hemoglobin A1c Lactic Acid Alkaline Phosphatase Ammonia Total Protein Albumin Valproic Acid 02/05/21 02/05/21 02/05/21 15:20 15:20 15:20 WBC PT INR Potassium Carbon Dioxide Glucose POC Glucose Hemoglobin A1c Lactic Acid Alkaline Phosphatase 181 H Ammonia 156.0 H Total Protein 8.6 H Albumin Valproic Acid < 2.8 L 02/05/21 02/05/21 02/05/21 17:46 19:05 19:05 WBC PT INR Potassium Carbon Dioxide Glucose 186 H POC Glucose Hemoglobin A1c Lactic Acid 3.80 H* 2.30 H* Alkaline Phosphatase Ammonia Total Protein Albumin Valproic Acid 02/05/21 02/06/21 02/06/21 19:54 07:13 07:13 WBC 12.3 H PT INR Potassium Carbon Dioxide Glucose 257 H POC Glucose 176 H Hemoglobin A1c Lactic Acid Alkaline Phosphatase 143 H Ammonia Total Protein Albumin 3.7 L Valproic Acid 02/06/21 07:13 WBC PT INR Potassium Carbon Dioxide Glucose POC Glucose Hemoglobin A1c 8.2 H Lactic Acid Alkaline Phosphatase Ammonia Total Protein Albumin Valproic Acid Assessment and Plan 70 yo female with seizure d/o, bipolar d/o, who presents with status epilepticus. 1. Status Epilepticus - stat EEG; if EEG is noted with any seizure activity, recommend fosphenytoin 1 gram IV x 1 dose stat and then transfer to a facility with continuous EEG monitoring; continue Keppra 1 gram iv/po bid; MRI Brain w/ wo contrast when clinically stable. 2. Metabolic Encephalopathy - in the setting of abnormal LFTs and hyperglycemia. 3. DM - maintain euglycemia; per primary team. Jose Pritchard MD Neurology
[2021-02-06 08:36] LABS: BUN/Creatinine Ratio 19
[2021-02-06] MEDS: POTASSIUM CHLORIDE ER 20 MEQ TAB PO SCH (09:38)
[2021-02-06] MEDS: risperiDONE 0.25 MG TAB PO SCH (09:38)
[2021-02-06] MEDS: FOLIC ACID 1 MG TAB PO SCH (09:39)
[2021-02-06] MEDS: HEPARIN 5,000 UNIT/1 ML VIAL SUB-Q SCH ×2 (09:39→21:25)
[2021-02-06] MEDS: FAMOTIDINE 20 MG/2 ML INJ IV SCH ×2 (09:39→21:24)
[2021-02-06] MEDS: ASPIRIN 81 MG TAB CHEW PO SCH (09:40)
[2021-02-06] MEDS: THIAMINE 100 MG TAB PO SCH (09:41)
[2021-02-06] MEDS: DIVALPROEX DR 250 MG TAB PO SCH ×2 (09:55→21:49)
[2021-02-06] MEDS ORDERED: clonazePAM 0.5 MG TAB PO SCH (10:00)
--- NOTE | 2021-02-06 10:06 | Progress Note ---
Assessment and Plan Assessment and plan: 70-year-old female with history of seizure disorder, insulin-dependent diabetes and history of psychiatric disorder was transported by EMS for recurrent seizures. Ativan was given in route. Patient stopped seizing while in the emergency room. But patient was with altered sensorium and hence admission. After couple hours patient regained her generalized [id number] in nature. Altered and lethargic. Patient being admitted for post ictal state and decreased mental status Review of the patient's previous medical records does indicate that she has a history of psychiatric disorder, alcohol dependency as well as previous admission for altered mental status in March of 2020: 02/06: Continue supportive care, Neuro input noted noted, will obtain MRI brain, obtain psych consult, and if stable can discharge in am (1) Status epilepticus Current Visit: Yes Status: Acute Plan to address problem: Patient initiated on IV Keppra Patient is noncompliant as evidenced by low valproic acid level To be counseled about compliance by primary team when she is more alert and oriented Neurology consult requested Patient to be transitioned to oral Keppra (2) Acute metabolic and Hepatic encephalopathy Current Visit: Yes Status: Acute Plan to address problem: Ammonia level is high Lactulose initiated Repeat ammonia level in the morning (3) Hyperkalemia Current Visit: Yes Status: Acute Plan to address problem: Will repeat the BMP because of hemolysis (4) Hypertension Current Visit: Yes Status: Chronic Qualifiers: Hypertension type: essential hypertension Qualified Code(s): I10 - Ess ential (primary) hypertension Plan to address problem: Continue antihypertensives and adjust medications as necessary (5) IDDM (insulin dependent diabetes mellitus) Current Visit: Yes Status: Chronic Plan to address problem: Continue home insulin and coverage Check hemoglobin A1c and adjust medications (6) Asthma Current Visit: Yes Status: Inactive Qualifiers: Asthma persistence: unspecified Plan to address problem: Continue Singulair for prevention of asthma attacks (7) SIRS with no organ dyfunction and no evidence of sepsis (8) DVT prophylaxis Current Visit: Yes Status: Acute Plan to address problem: On heparin and GI prophylaxis History Interval history: Patient seen and examined, no acute distress. No new seizure activity. Hospitalist Physical - Physical exam Narrative exam: General appearance: Present: no acute distress, well-nourished, awakes to tactile and verbal stimuli - EENT Eyes: Present: PERRL ENT: hearing intact, clear oral mucosa - Neck Neck: Present: supple, normal ROM - Respiratory Respiratory effort: normal Respiratory: bilateral: CTA - Cardiovascular Heart rate: 78 Rhythm: regular Heart Sounds: Present: S1 & S2. Absent: rub, click - Extremities Extremities: pulses symmetrical, No edema Peripheral Pulses: within normal limits - Abdominal General gastrointestinal: Present: soft, non-tender, non-distended, normal bowel sounds Female genitourinary: Present: normal - Integumentary Integumentary: Present: clear, warm, dry - Musculoskeletal Musculoskeletal: generalized weakness - Psychiatric Psychiatric: other (Lethargic) - Neurologic Neurologic: CNII-XII intact, moves all extremities, other (Lethargic) - Allied Health Allied health notes reviewed: nursing, case management - Constitutional Vitals: Temp Pulse Resp BP Pulse Ox 99.6 F 102 H 16 120/46 94 02/06/21 08:00 02/06/21 07:30 02/06/21 07:30 02/06/21 07:30 02/06/21 07:30 General appearance: Present: no acute distress, well-nourished HEART Score - HEART Score Troponin: Troponin T < 0.010 ng/mL (0.00-0.029) 02/05/21 15:20 Results - Labs CBC & Chem 7: 02/06/21 07:13 02/06/21 07:13 Labs: Laboratory Last Values WBC 12.3 K/mm3 (4.5-11.0) H 02/06/21 07:13 RBC 4.07 M/mm3 (3.65-5.03) 02/06/21 07:13 Hgb 11.9 gm/dl (10.1-14.3) 02/06/21 07:13 Hct 36.1 % (30.3-42.9) 02/06/21 07:13 MCV 89 fl (79-97) 02/06/21 07:13 MCH 29 pg (28-32) 02/06/21 07:13 MCHC 33 % (30-34) 02/06/21 07:13 RDW 14.1 % (13.2-15.2) 02/06/21 07:13 Plt Count 188 K/mm3 (140-440) 02/06/21 07:13 Lymph % (Auto) [employer] 02/06/21 07:13 [place] % (Auto) [employer] 02/06/21 07:13 Eos % (Auto) [employer] 02/06/21 07:13 Baso % (Auto) [employer] 02/06/21 07:13 Lymph # (Auto) [employer] 02/06/21 07:13 [place] # (Auto) [employer] 02/06/21 07:13 Eos # (Auto) [employer] 02/06/21 07:13 Baso # (Auto) [employer] 02/06/21 07:13 Seg Neutrophils % [employer] 02/06/21 07:13 Seg Neutrophils # [employer] 02/06/21 07:13 PT 15.1 Sec. (12.2-14.9) H 02/05/21 15:20 INR 1.19 (0.87-1.13) H 02/05/21 15:20 APTT 26.3 Sec. (24.2-36.6) 02/05/21 15:20 Sodium 139 mmol/L (137-145) 02/06/21 07:13 Potassium 3.8 mmol/L (3.6-5.0) 02/06/21 07:13 Chloride 101.6 mmol/L (98-107) 02/06/21 07:13 Carbon Dioxide 29 mmol/L (22-30) 02/06/21 07:13 Anion Gap 12 mmol/L 02/06/21 07:13 BUN 13 mg/dL (7-17) 02/06/21 07:13 Creatinine 0.7 mg/dL (0.6-1.2) 02/06/21 07:13 Estimated GFR > 60 ml/min 02/06/21 07:13 BUN/Creatinine Ratio 19 % 02/06/21 07:13 Glucose 257 mg/dL (65-100) H 02/06/21 07:13 POC Glucose 176 mg/dL (70-105) H 02/05/21 19:54 Hemoglobin A1c 8.2 % (4-6) H 02/06/21 07:13 Lactic Acid 2.30 mmol/L (0.7-2.0) H* 02/05/21 19:05 Calcium 9.4 mg/dL (8.4-10.2) 02/06/21 07:13 Magnesium 1.80 mg/dL (1.7-2.3) 02/05/21 15:20 Total Bilirubin 0.40 mg/dL (0.1-1.2) 02/06/21 07:13 Direct Bilirubin < 0.2 mg/dL (0-0.2) 02/05/21 15:20 Indirect Bilirubin 0.1 mg/dL 02/05/21 15:20 AST 20 units/L (5-40) 02/06/21 07:13 ALT 11 units/L (7-56) 02/06/21 07:13 Alkaline Phosphatase 143 units/L (35-129) H 02/06/21 07:13 Ammonia 67.0 umol/L (25-60) H 02/06/21 07:13 Total Creatine Kinase 53 units/L (30-135) 02/05/21 15:20 CK-MB (CK-2) 1.3 ng/mL (0.0-4.0) 02/05/21 15:20 CK-MB (CK-2) Rel Index 2.4 (0-4) 02/05/21 15:20 Troponin T < 0.010 ng/mL (0.00-0.029) 02/05/21 15:20 NT-Pro-B Natriuret Pep 214.6 pg/mL (0-900) 02/05/21 15:20 Total Protein 7.0 g/dL (6.3-8.2) 02/06/21 07:13 Albumin 3.7 g/dL (3.9-5) L 02/06/21 07:13 Albumin/Globulin Ratio 1.1 % 02/06/21 07:13 Valproic Acid < 2.8 ug/mL (50-100) L 02/05/21 15:20 Plasma/Serum Alcohol < 0.01 % (0-0.07) 02/05/21 15:20 Microbiology: Microbiology 02/05/21 17:46 Peripheral/Venous Blood Culture - Preliminary Culture in Progress 02/05/21 17:48 Peripheral/Venous Blood Culture - Preliminary Culture in Progress [place]/IV: Voiding Method External Female Catheter Active Medications - Current Medications Current Medications: Generic Name Dose Route Start Last Admin Trade Name Freq PRN Reason Stop Dose Admin Acetaminophen 650 mg 02/05/21 21:24 Acetaminophen 325 Mg Tab PO Q4H PRN Pain MILD(1-3)/Fever >100.5/DENISE Aspirin 81 mg 02/06/21 10:00 02/06/21 09:40 Aspirin 81 Mg Tab Chew PO 81 mg QDAY JERRY Administration Clonazepam 0.5 mg 02/06/21 10:00 02/06/21 09:39 Clonazepam 0.5 Mg Tab PO 0.5 mg DAILY JERRY Administration Clonidine HCl 0.3 mg 02/11/21 10:00 Clonidine Tts 0.2 Mg/24 Hr Patch TD We JERRY Divalproex Sodium 250 mg 02/05/21 22:00 02/06/21 09:[address] 250 Mg Tab PO 250 mg BID JERRY Administration Famotidine 20 mg 02/05/21 22:00 02/06/21 09:39 Famotidine 20 Mg/2 Ml Inj IV 20 mg BID JERRY Administration Folic Acid 1 mg 02/06/21 10:00 02/06/21 09:39 Folic Acid 1 Mg Tab PO 1 mg QDAY JERRY Administration Heparin Sodium (Porcine) 5,000 unit 02/05/21 22:00 02/06/21 09:39 Heparin 5,000 Unit/1 Ml Vial SUB-Q 5,000 unit Q12HR JERRY Administration Hydromorphone HCl 0.5 mg 02/05/21 21:25 Hydromorphone 1 Mg/1 Ml Inj IV Q3H PRN Pain , Severe (7-10) Sodium Chloride 1,000 mls @ 75 mls/hr 02/05/21 21:30 Nacl 0.9% 1000 Ml IV 02/06/21 12:00 DIRECT JERRY Levetiracetam 1,000 mg/ 110 mls @ 400 mls/hr 02/06/21 04:00 02/06/21 06:31 Dextrose IV 400 mls/hr Q12H JERRY Administration Insulin Human Isoph/Insulin Regular 15 unit 02/06/21 08:00 02/06/21 08:09 Insulin Nph/Regular 70/30 Inj SUB-Q 15 unit BIDDIAB JERRY Administration Insulin Human Lispro 0 unit 02/05/21 22:00 02/06/21 08:09 Insulin Lispro 100 Unit/Ml SUB-Q 4 unit ACHS JERRY Administration Protocol Lactulose 20 gm 02/05/21 22:00 02/06/21 06:23 Lactulose 20 Gm/30 Ml Oral Liqd PO 20 gm Q8H JERRY Administration Metoclopramide HCl 10 mg 02/05/21 21:25 Metoclopramide 10 Mg/2 Ml Inj IV Q3H PRN Nausea And Vomiting Montelukast Sodium 10 mg 02/06/21 18:00 Montelukast 10 Mg Tab PO QPM JERRY Ondansetron HCl 4 mg 02/05/21 21:24 Ondansetron 4 Mg/2 Ml Inj IV Q8H PRN Nausea And Vomiting Oxycodone/Acetaminophen 1 tab 02/05/21 21:25 Oxycodone /Acetaminophen 5-325mg Tab PO Q6H PRN Pain, Moderate (4-6) Potassium Chloride 20 meq 02/05/21 22:00 02/06/21 09:38 Potassium Chloride Er 20 Meq Tab PO 20 meq QDAY JERRY Administration Risperidone 0.5 mg 02/05/21 22:00 02/06/21 09:38 Risperidone 0.25 Mg Tab PO 0.5 mg BID JERRY Administration Sodium Chloride 10 ml 02/05/21 22:00 02/06/21 09:39 Sodium Chloride 0.9% 10 Ml Flush Syringe IV 10 ml BID JERRY Administration Sodium Chloride 10 ml 02/05/21 21:24 Sodium Chloride 0.9% 10 Ml Flush Syringe IV PRN PRN LINE FLUSH Thiamine HCl 100 mg 02/06/21 10:00 02/06/21 09:41 Thiamine 100 Mg Tab PO 100 mg QDAY JERRY Administration Trazodone HCl 50 mg 02/05/21 22:00 02/05/21 23:45 Trazodone 50 Mg Tab PO 50 mg QHS JERRY Administration
--- NOTE | 2021-02-06 10:09 | Consultation ---
History of Present Illness - Reason for Consult Consult date: 02/06/21 Reason for consult: delirium - History of Present Psychiatric Illness Per ED Note: This is a 70-year-old female with a history of seizure disorder. Additionally she has a history of psychiatric disorder and insulin-dependent diabetes. EMS was called to her residence for a seizure. She was transported to this facility without incident. Her glucose was found to be about 300 her vi ruben signs are stable as well as her pulse oximetry according to medic. As soon as she arrived she had a generalized seizure. Ativan was called for but by the time the medication was available patient is already stopped seizing. Keppra was ordered. She did not desaturate. However she did not regain consciousness. Shortly thereafter she had an additional generalized seizure. She was given a milligram of Ativan. Later on, she was quite altered and poorly cooperative. She was given additional Ativan to enable CT scanning. No further information is available at the time of this dictation from the patient. The patient was seen today, she is lying in bed awake, but drowsy. She is a/o x 2. She is calm and cooperative. She's a poor historian and unable to give a lot of information as to what is going on with her. She says she is fine and she slept good. The patient denies SI/HI or hallucinations. She says "naw, I aint got none of that." She then drifts back to sleep. The nurse caring for the patient states she was a little delirious yesterday, but okay this morning. The nurse notes states the patient has been resistive to care, and not following directions. PAST PSYCHIATRIC HISTORY: Diagnoses: Not accessible Suicide attempts or Self-harm behavior: Not accessible Prior psychiatric hospitalizations: Not accessible Substance Abuse history: Not accessible Previous psychiatric medications tried: Not accessible Outpatient treatment: Not accessible PAST MEDICAL HISTORY: Seizure Family Psychiatric History: None reported or documented SOCIAL HISTORY Marital Status: single Living Arrangements: Not accessible Employment Status: Not accessible Access to guns/weapons: Not accessible Education: Not accessible History of Abuse: Not accessible Legal History: Not accessible REVIEW OF SYSTEMS Constitutional: Negative for weight loss ENT: Negative for stridor Respiratory: Negative for cough or hemoptysis All other systems reviewed and are negative MENTAL STATUS EXAMINATION General Appearance and Behavior: Note Age appropriate,fair hygiene, wearing appropriate clothes, drowsy Cooperation: cooperative Psychomotor Behavior: unremarkable and within normal limits Mood: fine Affect and affective range: restricted Thought Process: circumstantial Thought Content: None Speech: Normal tone and pace Suicidal Ideation: Denies Homicidal Ideation: Denies Hallucinations: denies Delusions: None elicited Insight and Judgment: Impaired Memory/Cognition: limited Attention: limited Orientation: Alert non oriented and confused Assessment and Plan 1. Delirium Physician Certification Treatment Plan Increased Risperidone 1mg po BID Sitter: Defer to primary Medical: Per primary Disposition: Do not recommend acute inpatient psychiatric treatment at this time. This could change once the patient is medically clear. Will continue to follow for psychiatric progress and med management. Will follow. Thanks for this consult Case staffed with Dr. Ruiz Medications and Allergies Allergies Allergy/AdvReac Type Severity Reaction Status Date / Time No Known Allergies Allergy Unverified 04/05/20 08:38 Home Medications Medication Instructions Recorded Confirmed Last Taken Type Aspirin [Aspirin BABY CHEW TAB] 81 mg PO QDAY 04/05/20 04/11/20 04/04/20 08:00 History Montelukast [Singulair] 10 mg PO QPM 04/05/20 04/11/20 04/03/20 21:00 History Folic Acid [Folvite] 1 mg PO QDAY tablet 04/10/20 04/11/20 Unknown Rx Insulin NPH/Regular [NovoLIN 70/30] 15 unit SUB-Q BIDDIAB units 04/10/20 04/11/20 Unknown Rx Potassium Chloride [K-Dur] 20 meq PO QDAY #3 tablet 04/10/20 04/11/20 Unknown Rx Thiamine [Vitamin B-1] 100 mg PO QDAY tablet 04/10/20 04/11/20 Unknown Rx cloNIDine-TTS PATCH [Catapres-Tts 0.3 mg TD We patch 04/10/20 04/11/20 Unknown Rx 0.2mg Patch] levETIRAcetam [Keppra] 750 mg PO BID oral.liqd 04/10/20 04/11/20 Unknown Rx risperiDONE [RisperDAL] 0.5 mg PO BID tablet 04/10/20 04/11/[address] [Depakote Dr] 250 mg PO BID #60 tablet 04/22/20 Unknown Rx clonazePAM [KlonoPIN] 0.5 mg PO DAILY #30 tablet 04/22/20 Unknown Rx traZODone [Desyrel] 50 mg PO QHS #30 tablet 04/22/20 Unknown Rx Active Meds: Active Medications Acetaminophen (Acetaminophen 325 Mg Tab) 650 mg PO Q4H PRN PRN Reason: Pain MILD(1-3)/Fever >100.5/DENISE Aspirin (Aspirin 81 Mg Tab Chew) 81 mg PO QDAY [facility] Last Admin: 02/06/21 09:40 Dose: 81 mg Documented by: Clonazepam (Clonazepam 0.5 Mg Tab) 0.5 mg PO DAILY [facility] Last Admin: 02/06/21 09:39 Dose: 0.5 mg Documented by: Clonidine HCl (Clonidine Tts 0.2 Mg/24 Hr Patch) 0.3 mg TD We [facility] Divalproex Sodium (Divalproex Dr 250 Mg Tab) 250 mg PO BID [facility] Last Admin: 02/06/21 09:55 Dose: 250 mg Documented by: Famotidine (Famotidine 20 Mg/2 Ml Inj) 20 mg IV BID [facility] Last Admin: 02/06/21 09:39 Dose: 20 mg Documented by: Folic Acid (Folic Acid 1 Mg Tab) 1 mg PO QDAY [facility] Last Admin: 02/06/21 09:39 Dose: 1 mg Documented by: Heparin Sodium (Porcine) (Heparin 5,000 Unit/1 Ml Vial) 5,000 unit SUB-Q Q12HR [facility] Last Admin: 02/06/21 09:39 Dose: 5,000 unit Documented by: Hydromorphone HCl (Hydromorphone 1 Mg/1 Ml Inj) 0.5 mg IV Q3H PRN PRN Reason: Pain , Severe (7-10) Sodium Chloride (Nacl 0.9% 1000 Ml) 1,000 mls @ 75 mls/hr IV DIRECT [facility] Stop: 02/06/21 12:00 Levetiracetam 1,000 mg/ (Dextrose) 110 mls @ 400 mls/hr IV Q12H [facility] Last Admin: 02/06/21 06:31 Dose: 400 mls/hr Documented by: Insulin Human Isoph/Insulin Regular (Insulin Nph/Regular 70/30 Inj) 15 unit SUB-Q BIDDIAB [facility] Last Admin: 02/06/21 08:09 Dose: 15 unit Documented by: Insulin Human Lispro (Insulin Lispro 100 Unit/Ml) 0 unit SUB-Q ACHS [facility]; Protocol Last Admin: 02/06/21 08:09 Dose: 4 unit Documented by: Lactulose (Lactulose 20 Gm/30 Ml Oral Liqd) 20 gm PO Q8H [facility] Last Admin: 02/06/21 06:23 Dose: 20 gm Documented by: Metoclopramide HCl (Metoclopramide 10 Mg/2 Ml Inj) 10 mg IV Q3H PRN PRN Reason: Nausea And Vomiting Montelukast Sodium (Montelukast 10 Mg Tab) 10 mg PO QPM [facility] Ondansetron HCl (Ondansetron 4 Mg/2 Ml Inj) 4 mg IV Q8H PRN PRN Reason: Nausea And Vomiting Oxycodone/Acetaminophen (Oxycodone /Acetaminophen 5-325mg Tab) 1 tab PO Q6H PRN PRN Reason: Pain, Moderate (4-6) Potassium Chloride (Potassium Chloride Er 20 Meq Tab) 20 meq PO QDAY [facility] Last Admin: 02/06/21 09:38 Dose: 20 meq Documented by: Risperidone (Risperidone 0.25 Mg Tab) 0.5 mg PO BID [facility] Last Admin: 02/06/21 09:38 Dose: 0.5 mg Documented by: Sodium Chloride (Sodium Chloride 0.9% 10 Ml Flush Syringe) 10 ml IV BID [facility] Last Admin: 02/06/21 09:39 Dose: 10 ml Documented by: Sodium Chloride (Sodium Chloride 0.9% 10 Ml Flush Syringe) 10 ml IV PRN PRN PRN Reason: LINE FLUSH Thiamine HCl (Thiamine 100 Mg Tab) 100 mg PO QDAY [facility] Last Admin: 02/06/21 09:41 Dose: 100 mg Documented by: Trazodone HCl (Trazodone 50 Mg Tab) 50 mg PO QHS [facility] Last Admin: 02/05/21 23:45 Dose: 50 mg Documented by: Mental Status Exam - Vital signs Last Vital Signs Temp 99.6 F 02/06/21 08:00 Pulse 102 H 02/06/21 07:30 Resp 16 02/06/21 07:30 BP 120/46 02/06/21 07:30 Pulse Ox 94 02/06/21 07:30 Results Result Diagrams: 02/06/21 07:13 02/06/21 07:13 Abnormal lab results 02/05/21 02/05/21 02/05/21 Range/Units 15:20 15:20 15:20 WBC 18.5 H (4.5-11.0) K/mm3 PT 15.1 H (12.2-14.9) Sec. INR 1.19 H (0.87-1.13) Potassium 6.3 H* (3.6-5.0) mmol/L Carbon Dioxide 14 L (22-30) mmol/L Glucose 375 H (65-100) mg/dL POC Glucose (70-105) mg/dL Hemoglobin A1c (4-6) % Lactic Acid (0.7-2.0) mmol/L Alkaline Phosphatase (35-129) units/L Ammonia (25-60) umol/L Total Protein (6.3-8.2) g/dL Albumin (3.9-5) g/dL Valproic Acid (50-100) ug/mL 02/05/21 02/05/21 02/05/21 Range/Units 15:20 15:20 15:20 WBC (4.5-11.0) K/mm3 PT (12.2-14.9) Sec. INR (0.87-1.13) Potassium (3.6-5.0) mmol/L Carbon Dioxide (22-30) mmol/L Glucose (65-100) mg/dL POC Glucose (70-105) mg/dL Hemoglobin A1c (4-6) % Lactic Acid (0.7-2.0) mmol/L Alkaline Phosphatase 181 H (35-129) units/L Ammonia 156.0 H (25-60) umol/L Total Protein 8.6 H (6.3-8.2) g/dL Albumin (3.9-5) g/dL Valproic Acid < 2.8 L (50-100) ug/mL 02/05/21 02/05/21 02/05/21 Range/Units 17:46 19:05 19:05 WBC (4.5-11.0) K/mm3 PT (12.2-14.9) Sec. INR (0.87-1.13) Potassium (3.6-5.0) mmol/L Carbon Dioxide (22-30) mmol/L Glucose 186 H (65-100) mg/dL POC Glucose (70-105) mg/dL Hemoglobin A1c (4-6) % Lactic Acid 3.80 H* 2.30 H* (0.7-2.0) mmol/L Alkaline Phosphatase (35-129) units/L Ammonia (25-60) umol/L Total Protein (6.3-8.2) g/dL Albumin (3.9-5) g/dL Valproic Acid (50-100) ug/mL 02/05/21 02/06/21 02/06/21 Range/Units 19:54 07:13 07:13 WBC 12.3 H (4.5-11.0) K/mm3 PT (12.2-14.9) Sec. INR (0.87-1.13) Potassium (3.6-5.0) mmol/L Carbon Dioxide (22-30) mmol/L Glucose 257 H (65-100) mg/dL POC Glucose 176 H (70-105) mg/dL Hemoglobin A1c (4-6) % Lactic Acid (0.7-2.0) mmol/L Alkaline Phosphatase 143 H (35-129) units/L Ammonia (25-60) umol/L Total Protein (6.3-8.2) g/dL Albumin 3.7 L (3.9-5) g/dL Valproic Acid (50-100) ug/mL 02/06/21 02/06/21 Range/Units 07:13 07:13 WBC (4.5-11.0) K/mm3 PT (12.2-14.9) Sec. INR (0.87-1.13) Potassium (3.6-5.0) mmol/L Carbon Dioxide (22-30) mmol/L Glucose (65-100) mg/dL POC Glucose (70-105) mg/dL Hemoglobin A1c 8.2 H (4-6) % Lactic Acid (0.7-2.0) mmol/L Alkaline Phosphatase (35-129) units/L Ammonia 67.0 H (25-60) umol/L Total Protein (6.3-8.2) g/dL Albumin (3.9-5) g/dL Valproic Acid (50-100) ug/mL All other labs normal.
[2021-02-06 12:49] LABS: Amphetamine Screen,Urine Negative; Benzodiazepines Screen,Urine Negative; Cannabinoid Screen,Urine Negative; Cocaine Screen,Urine Negative; Methadone Screen,Urine Negative; Opiate Screen,Urine Negative
[2021-02-06 12:54] LABS: Color,Urine Brown (Yellow)
[2021-02-06 12:57] LABS: Bacteria,Urine 4+ /HPF (Negative)
[2021-02-06 12:59] LABS: PH,Urine TNR (5.0-7.0); Protein,Urine TNR mg/dL (Negative); Urobilinogen,Urine TNR mg/dL (<2.0)
[2021-02-06 13:00] LABS: Bilirubin,Urine TNR (Negative); Blood,Urine TNR (Negative); Ictotest,Urine TNR (Negative)
[2021-02-06] MEDS: MONTELUKAST 10 MG TAB PO SCH (19:38)
[2021-02-06] MEDS: traZODone 50 MG TAB PO SCH (21:23)
[2021-02-06] MEDS: risperiDONE 1 MG TAB PO SCH (21:23)
[2021-02-07] MEDS: levETIRAcetam 1,000 MG in DEXTROSE 5% IN WATER 100 ML IV SCH (04:38)
[2021-02-07] MEDS: LACTULOSE 20 GM/30 ML ORAL LIQD PO SCH ×4 (05:32→22:49)
[2021-02-07] MEDS: INSULIN LISPRO 100 UNIT/ML SUB-Q SCH ×4 (08:38→22:06)
[2021-02-07] MEDS: INSULIN NPH/REGULAR 70/30 INJ SUB-Q SCH ×2 (08:38→18:03)
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
[2021-02-07] MEDS: ASPIRIN 81 MG TAB CHEW PO SCH (10:50)
[2021-02-07] MEDS: FAMOTIDINE 20 MG/2 ML INJ IV SCH ×2 (10:50→22:04)
[2021-02-07] MEDS: FOLIC ACID 1 MG TAB PO SCH (10:50)
[2021-02-07] MEDS: clonazePAM 0.5 MG TAB PO SCH ×2 (10:50→22:03)
[2021-02-07] MEDS: THIAMINE 100 MG TAB PO SCH (10:50)
[2021-02-07] MEDS: risperiDONE 1 MG TAB PO SCH ×2 (10:50→22:04)
[2021-02-07] MEDS: HEPARIN 5,000 UNIT/1 ML VIAL SUB-Q SCH ×2 (10:50→22:04)
[2021-02-07] MEDS: POTASSIUM CHLORIDE ER 20 MEQ TAB PO SCH (10:50)
--- NOTE | 2021-02-07 13:10 | Progress Note ---
Subjective Date of service: 02/07/21 Interval history: 70-year-old female with history of seizure disorder, insulin-dependent diabetes and history of psychiatric disorder was transported by EMS for recurrent seizures. Ativan was given in route. Patient stopped seizing while in the emergency room. But patient was with altered sensorium and hence admission. After couple hours patient regained her generalized mczrxoj-xyxaa-spslgo in nature. Altered and lethargic. Patient being admitted for post ictal state and decreased mental status Review of the patient's previous medical records does indicate that she has a history of psychiatric disorder, alcohol dependency as well as previous admission for altered mental status in March of 2020: 02/06: Continue supportive care, Neuro input noted noted, will obtain MRI brain, obtain psych consult, and if stable can discharge in am 02/07 patient is awake and alert but appears to be intermittently groggy. She offers no specific complaints. She denies any chest pain or abdominal pain or shortness of breath. poor historian and mildly confused. Unclear if patient has baseline dementia. Apparently had some mild manic behavior last night. Neurology and psychiatry notes reviewed. Lab results reviewed (1) Status epilepticus Current Visit: Yes Status: Acute Plan to address problem: Patient is more awake and alert We will change Keppra to p.o. Patient is noncompliant as evidenced by low valproic acid level To be counseled about compliance by primary team when she is more alert and oriented Neurology consulted and note reviewed MRI brain was ordered but this could not be done as consent was unobtainable However patient is more awake and alert today Discussed with RN She will be scheduled for MRI brain today (2) Acute metabolic and Hepatic encephalopathy Current Visit: Yes Status: Acute Plan to address problem: Ammonia level is borderline elevated today It is down from 1 56-67 Lactulose initiated Repeat ammonia level in the morning (3) Hyperkalemia Current Visit: Yes Status: Acute Plan to address problem: Will repeat the BMP because of hemolysis Repeat BMP potassium result reviewed -improved (4) Hypertension Current Visit: Yes Status: Chronic Qualifiers: Hypertension type: essential hypertension Qualified Code(s): I10 - Essential (primary) hypertension Plan to address problem: Continue antihypertensives and adjust medications as necessary (5) IDDM (insulin dependent diabetes mellitus) Current Visit: Yes Status: Chronic Plan to address problem: Continue home insulin and coverage A1c 8.2 (6) Asthma Current Visit: Yes Status: Inactive Qualifiers: Asthma persistence: unspecified Plan to address problem: Continue Singulair for prevention of asthma attacks (7) SIRS with no organ dyfunction and no evidence of sepsis (8) DVT prophylaxis Current Visit: Yes Status: Acute Plan to address problem: On heparin and GI prophylaxis 9. Delirium ? Alcohol abuse Patient states she drinks every day although history is not clear as she is mildly confused We will place the patient on [facility] protocol Psychiatry note reviewed Continue risperidone per psych recommendations Objective - Constitutional Vitals: Vital Signs - 12hr 02/07/21 02/07/21 02/07/21 02:00 03:00 04:00 Temperature 97.6 F Pulse Rate 102 H 95 H 107 H Pulse Rate [ 95 H From Monitor] Respiratory 18 17 12 Rate Blood Pressure 140/72 124/70 127/76 O2 Sat by Pulse 96 93 93 Oximetry 02/07/21 02/07/21 02/07/21 05:00 06:00 07:00 Temperature Pulse Rate 89 103 H 93 H Pulse Rate [ From Monitor] Respiratory 16 17 17 Rate Blood Pressure 127/76 165/78 165/78 O2 Sat by Pulse 96 97 97 Oximetry 02/07/21 02/07/21 02/07/21 08:00 09:00 10:00 Temperature 97.9 F Pulse Rate 86 103 H 90 Pulse Rate [ From Monitor] Respiratory 16 19 16 Rate Blood Pressure 149/66 149/66 155/81 O2 Sat by Pulse 92 99 98 Oximetry 02/07/21 02/07/21 11:00 12:00 Temperature 98.0 F Pulse Rate 103 H 111 H Pulse Rate [ From Monitor] Respiratory 16 21 Rate Blood Pressure 142/73 164/94 O2 Sat by Pulse 96 94 Oximetry General appearance: Present: no acute distress, well-nourished - EENT Eyes: PERRL, EOM intact ENT: hearing intact, clear oral mucosa, no thrush - Neck Neck: supple, normal ROM, no masses or JVD - Respiratory Respiratory effort: normal Respiratory: bilateral: CTA - Cardiovascular Rhythm: regular Heart Sounds: Present: S1 & S2 Extremities: No edema - Gastrointestinal General gastrointestinal: Present: soft, non-tender Rectal Exam: deferred - Genitourinary Female genitourinary: deferred - Integumentary Integumentary: clear - Musculoskeletal Musculoskeletal: strength equal bilaterally - Neurologic Neurologic: moves all extremities - Psychiatric Psychiatric: other (Flat affect) - Labs CBC & Chem 7: 02/06/21 07:13 02/06/21 07:13 Labs: Abnormal lab results 02/06/21 02/06/21 02/07/21 Range/Units 16:29 21:24 08:19 POC Glucose 162 H 165 H 208 H (70-105) mg/dL 02/07/21 Range/Units 11:29 POC Glucose 154 H (70-105) mg/dL HEART Score - HEART Score Troponin: Troponin T < 0.010 ng/mL (0.00-0.029) 02/05/21 15:20
[2021-02-07] MEDS: DIVALPROEX DR 250 MG TAB PO SCH ×2 (14:26→20:11)
[2021-02-07] MEDS ORDERED: LORazepam 2 MG/ML VIAL IV PRN (15:20)
[2021-02-07] MEDS: MONTELUKAST 10 MG TAB PO SCH (18:02)
[2021-02-07] MEDS: levETIRAcetam 500 MG TAB PO SCH (22:03)
[2021-02-07] MEDS: traZODone 50 MG TAB PO SCH (22:04)
[2021-02-08 05:50] LABS: Hematocrit 32.8 % (30.3-42.9); Hemoglobin 10.8 gm/dl (10.1-14.3); Mean Corpuscular HGB Conc 33 % (30-34); Mean Corpuscular Volume 87 fl (79-97); Platelet Count 203 K/mm3 (140-440); Red Blood Count 3.75 M/mm3 (3.65-5.03); Red Cell Distribution Width 13.8 % (13.2-15.2)
[2021-02-08] MEDS: LACTULOSE 20 GM/30 ML ORAL LIQD PO SCH ×3 (06:06→22:03)
[2021-02-08 06:12] LABS: BUN/Creatinine Ratio 21; Blood Urea Nitrogen 17 mg/dL (7-17); Calcium 9.1 mg/dL (8.4-10.2); Hemolysis Index 3
[2021-02-08] MEDS: INSULIN NPH/REGULAR 70/30 INJ SUB-Q SCH ×2 (08:24→18:03)
[2021-02-08] MEDS: INSULIN LISPRO 100 UNIT/ML SUB-Q SCH ×4 (08:24→22:04)
[2021-02-08] MEDS: DIVALPROEX DR 250 MG TAB PO SCH ×3 (08:25→20:20)
[2021-02-08] MEDS: HEPARIN 5,000 UNIT/1 ML VIAL SUB-Q SCH ×2 (10:22→22:03)
[2021-02-08] MEDS: clonazePAM 0.5 MG TAB PO SCH ×2 (10:23→22:03)
[2021-02-08] MEDS: ASPIRIN 81 MG TAB CHEW PO SCH (10:23)
[2021-02-08] MEDS: POTASSIUM CHLORIDE ER 20 MEQ TAB PO SCH (10:23)
[2021-02-08] MEDS: risperiDONE 1 MG TAB PO SCH ×2 (10:23→22:03)
[2021-02-08] MEDS: FAMOTIDINE 20 MG TAB PO SCH ×2 (10:24→22:03)
[2021-02-08] MEDS: THIAMINE 100 MG TAB PO SCH (10:24)
[2021-02-08] MEDS: FOLIC ACID 1 MG TAB PO SCH (10:24)
[2021-02-08] MEDS: levETIRAcetam 500 MG TAB PO SCH ×2 (10:24→22:03)
--- NOTE | 2021-02-08 10:56 | Progress Note ---
Subjective - Reason for Consult Consult date: 02/08/21 Reason for consult: delirium - Chief Complaint Chief complaint: Per Nurse Note: Patient aaox3, sitting up in bed resting comfortably. Gave patient morning Depakote PO. Took patient about 6 minutes to swallow pill. Claims pill and applesauce kept getting stuck in her throat. Able to swallow water with no difficulties. No previous difficulty swallowing. Informed Dr. Ho. Will continue to monitor and reassess. During my interview with the patient she is lying down, awake. She is calm, cooperative and pleasant. She smiles at me as I'm entering the room. The patient says she feels "good." She says she slept "real good." She denies SI/HI or hallucinations of any kind. REVIEW OF SYSTEMS Constitutional: Negative for weight loss ENT: Negative for stridor Respiratory: Negative for cough or hemoptysis All other systems reviewed and are negative MENTAL STATUS EXAMINATION General Appearance and Behavior: Note Age appropriate, fair hygiene, wearing appropriate clothes, calm and cooperative Cooperation: cooperative Psychomotor Behavior: unremarkable and within normal limits Mood: Good Affect and affective range: Euthymic Thought Process: goal directed Thought Content: None Speech: Normal tone and pace Suicidal Ideation: Denies Homicidal Ideation: Denies Hallucinations: denies Delusions: None elicited Insight and Judgment: Impaired Memory/Cognition: limited Attention: limited Orientation: Alert non oriented and confused Assessment and Plan 1. Delirium Treatment Plan Continue Risperidone 1mg po BID Change Depakote to liquid 25mg po TID (pt having difficulty swallowing pills) Continue Klonopin 0.5mg po BID Sitter: Defer to primary Medical: Per primary Disposition: Do not recommend acute inpatient psychiatric treatment at this time. Will continue to follow for psychiatric progress and med management. Will follow. Thanks for this consult Case staffed with Dr. Ruiz Mental Status Exam - Vital signs Last Vital Signs Temp 98.6 F 02/08/21 05:25 Pulse 109 H 02/08/21 05:25 Resp 20 02/08/21 05:25 BP 158/76 02/08/21 05:25 Pulse Ox 95 02/08/21 05:25
--- NOTE | 2021-02-08 11:03 | Progress Note ---
Subjective Date of service: 02/08/21 Interval history: 70-year-old female with history of seizure disorder, insulin-dependent diabetes and history of psychiatric disorder was transported by EMS for recurrent seizures. Ativan was given in route. Patient stopped seizing while in the emergency room. But patient was with altered sensorium and hence admission. After couple hours patient regained her generalized klfeqkj-veoxg-rvhnhr in nature. Altered and lethargic. Patient being admitted for post ictal state and decreased mental status Review of the patient's previous medical records does indicate that she has a history of psychiatric disorder, alcohol dependency as well as previous admission for altered mental status in March of 2020: 02/06: Continue supportive care, Neuro input noted noted, will obtain MRI brain, obtain psych consult, and if stable can discharge in am 02/07 patient is awake and alert but appears to be intermittently groggy. She offers no specific complaints. She denies any chest pain or abdominal pain or shortness of breath. poor historian and mildly confused. Unclear if patient has baseline dementia. Apparently had some mild manic behavior last night. Neurology and psychiatry notes reviewed. 02/08 patient awake attempts to make needs known. Still appears somewhat lethargic but was able to eat denied any concerns. Denied any chest pain no seizure. Subjective exam consistent with baseline dementia at this point. Tolerated change to p.o. Keppra. (1) Status epilepticus Current Visit: Yes Status: Acute Plan to address problem: Patient is more awake and alert We will change Keppra to p.o. Patient is noncompliant as evidenced by low valproic acid level Complete counseling about compliance. Unlikely well received. MRI brain was ordered but this could not be done as consent was unobtainable However patient is more awake and alert today Discussed with RN She will be scheduled for MRI brain today (2) Acute metabolic and Hepatic encephalopathy Current Visit: Yes Status: Acute Plan to address problem: Ammonia level is borderline elevated today It is down from 1 56-67 Lactulose initiated Repeat ammonia level in the morning normal. (3) Hyperkalemia Current Visit: Yes Status: Acute Plan to address problem: Will repeat the BMP because of hemolysis Repeat BMP potassium result reviewed -improved (4) Hypertension Current Visit: Yes Status: Chronic Qualifiers: Hypertension type: essential hypertension Qualified Code(s): I10 - Essential (primary) hypertension Plan to address problem: Continue antihypertensives and adjust medications as necessary (5) IDDM (insulin dependent diabetes mellitus) Current Visit: Yes Status: Chronic Plan to address problem: Continue home insulin and coverage A1c 8.2 (6) Asthma Current Visit: Yes Status: Inactive Qualifiers: Asthma persistence: unspecified Plan to address problem: Continue Singulair for prevention of asthma attacks (7) SIRS with no organ dyfunction and no evidence of sepsis (8) DVT prophylaxis Current Visit: Yes Status: Acute Plan to address problem: On heparin and GI prophylaxis 9. Delirium ? Alcohol abuse Patient states she drinks every day although history is not clear as she is mildly confused We will place the patient on [facility] protocol Psychiatry note reviewed Continue risperidone per psych recommendations Objective - Constitutional Vitals: Vital Signs - 12hr 02/08/21 05:25 Temperature 98.6 F Pulse Rate 109 H Respiratory 20 Rate Blood Pressure 158/76 O2 Sat by Pulse 95 Oximetry General appearance: Present: no acute distress, well-nourished, other (Chronic alcoholism) - EENT Eyes: PERRL, EOM intact ENT: hearing intact, clear oral mucosa Ears: bilateral: normal - Neck Neck: supple, normal ROM - Respiratory Respiratory effort: normal Respiratory: bilateral: CTA - Breasts Breasts: normal - Cardiovascular Rhythm: regular Heart Sounds: Present: S1 & S2. Absent: gallop, rub Extremities: pulses intact, No edema, normal color, Full ROM - Gastrointestinal General gastrointestinal: Present: soft, non-tender, non-distended, normal bowel sounds - Genitourinary Female genitourinary: normal - Integumentary Integumentary: clear, warm, dry - Musculoskeletal Musculoskeletal: 1, strength equal bilaterally - Neurologic Neurologic: moves all extremities - Psychiatric Psychiatric: memory intact, appropriate mood/affect, intact judgment & insight - Labs CBC & Chem 7: 02/08/21 05:17 02/08/21 05:17 Labs: Abnormal lab results 02/07/21 02/07/21 02/07/21 Range/Units 08:19 11:29 16:56 WBC (4.5-11.0) K/mm3 Sodium (137-145) mmol/L Potassium (3.6-5.0) mmol/L Chloride (98-107) mmol/L Glucose (65-100) mg/dL POC Glucose 208 H 154 H 163 H (70-105) mg/dL 02/07/21 02/08/21 02/08/21 Range/Units 21:37 05:17 05:17 WBC 11.4 H (4.5-11.0) K/mm3 Sodium 146 H D (137-145) mmol/L Potassium 3.5 L (3.6-5.0) mmol/L Chloride 108.8 H (98-107) mmol/L Glucose 167 H (65-100) mg/dL POC Glucose 203 H (70-105) mg/dL 02/08/21 Range/Units 07:12 WBC (4.5-11.0) K/mm3 Sodium (137-145) mmol/L Potassium (3.6-5.0) mmol/L Chloride (98-107) mmol/L Glucose (65-100) mg/dL POC Glucose 179 H (70-105) mg/dL HEART Score - HEART Score Troponin: Troponin T < 0.010 ng/mL (0.00-0.029) 02/05/21 15:20
[2021-02-08] MEDS: VALPROIC ACID 250 MG/5 ML ORAL LIQD PO SCH ×2 (14:30→20:20)
[2021-02-08] MEDS: MONTELUKAST 10 MG TAB PO SCH (18:03)
--- NOTE | 2021-02-08 19:02 | Magnetic Resonance Report ---
MR brain wo con INDICATION / CLINICAL INFORMATION: 70 years Female; SEIZURE. TECHNIQUE: Multiplanar, multisequence MR images of the brain were obtained. COMPARISON: The study is compared to the previous MRI of 04/15/2020. FINDINGS: BRAIN / INTRACRANIAL CONTENTS: The motion significantly degrades the image quality despite using the fast acquisition sequences. However, there is continued moderate enlargement of the lateral and third ventricles which appears to correlate with the previous MRI. There is also continued moderate parave rtebral white matter changes which are stable in appearance and may reflect microvascular angiopathy. The diffusion imaging reveals no evidence of acute infarction. No extra-axial fluid collections are identified. CRANIOCERVICAL JUNCTION: No significant abnormality. VASCULAR FLOW-VOIDS: No significant abnormality. ORBITS: The orbits are scattered by the degree of motion. SINUSES / MASTOIDS: There is minimal mucosal thickening within the ethmoid and left maxillary sinuses . ADDITIONAL FINDINGS: None. IMPRESSION: 1. The motion degrades image quality. However, there is stable ventriculomegaly and moderate microvas cular angiopathy as described without evidence of acute infarction. Signer Name: Thony Way MD Signed: 02/08/2021 6:58 PM Workstation Name: [id number]
[2021-02-08] MEDS: traZODone 50 MG TAB PO SCH (22:03)
[2021-02-09] MEDS: LACTULOSE 20 GM/30 ML ORAL LIQD PO SCH (05:59)
--- NOTE | 2021-02-09 08:38 | Progress Note ---
Subjective - Reason for Consult Consult date: 02/09/21 Reason for consult: delirium - Chief Complaint Chief complaint: Per Nurse Note: Received patient in bed awake alert and oriented time two with period of confusion. Assist her to the bathroom and had a bowel movement. Pm meds given and she denies any pain, will continue to monitor During my interview with the patient she is lying down, awake. She is calm, cooperative. She says she got some bad news about one of her test results that says she has a "tumor in her head." She says she rested well. The patient denies SI/HI or hallucinations of any kind. REVIEW OF SYSTEMS Constitutional: Negative for weight loss ENT: Negative for stridor Respiratory: Negative for cough or hemoptysis All other systems reviewed and are negative MENTAL STATUS EXAMINATION General Appearance and Behavior: Note Age appropriate, fair hygiene, wearing appropriate clothes, calm and cooperative Cooperation: cooperative Psychomotor Behavior: unremarkable and within normal limits Mood: Good Affect and affective range: Euthymic Thought Process: goal directed Thought Content: None Speech: Normal tone and pace Suicidal Ideation: Denies Homicidal Ideation: Denies Hallucinations: denies Delusions: None elicited Insight and Judgment: Impaired Memory/Cognition: limited Attention: limited Orientation: Alert non oriented and confused Assessment and Plan 1. Delirium Treatment Plan Continue Risperidone 1mg po BID Change Depakote to liquid 25mg po TID (pt having difficulty swallowing pills) Continue Klonopin 0.5mg po BID Sitter: Defer to primary Medical: Per primary Disposition: Do not recommend acute inpatient psychiatric treatment at this time. Will continue to follow for psychiatric progress and med management. Will follow. Thanks for this consult Case staffed with Dr. Ruiz Mental Status Exam - Vital signs Last Vital Signs Temp 98.8 F 02/09/21 06:00 Pulse 123 H 02/09/21 06:00 Resp 20 02/09/21 06:00 BP 173/82 02/09/21 06:00 Pulse Ox 96 02/09/21 06:00
[2021-02-09] MEDS: INSULIN LISPRO 100 UNIT/ML SUB-Q SCH ×2 (08:48→12:30)
[2021-02-09] MEDS: DIVALPROEX DR 250 MG TAB PO SCH (08:50)
[2021-02-09] MEDS: INSULIN NPH/REGULAR 70/30 INJ SUB-Q SCH (08:50)
[2021-02-09] MEDS: VALPROIC ACID 250 MG/5 ML ORAL LIQD PO SCH (08:50)
[2021-02-09] MEDS: HEPARIN 5,000 UNIT/1 ML VIAL SUB-Q SCH (10:24)
[2021-02-09] MEDS: levETIRAcetam 500 MG TAB PO SCH (10:25)
[2021-02-09] MEDS: POTASSIUM CHLORIDE ER 20 MEQ TAB PO SCH (10:25)
[2021-02-09] MEDS: FOLIC ACID 1 MG TAB PO SCH (10:25)
[2021-02-09] MEDS: FAMOTIDINE 20 MG TAB PO SCH (10:25)
[2021-02-09] MEDS: clonazePAM 0.5 MG TAB PO SCH (10:25)
[2021-02-09] MEDS: THIAMINE 100 MG TAB PO SCH (10:25)
[2021-02-09] MEDS: ASPIRIN 81 MG TAB CHEW PO SCH (10:25)
[2021-02-09] MEDS: risperiDONE 1 MG TAB PO SCH (10:25)
--- NOTE | 2021-02-09 12:58 | Discharge Summary ---
Providers - Providers Date of Admission: 02/05/21 18:34 Date of discharge: 02/09/21 Attending physician: ELI RODRIGUEZ 02/05/21 21:25 Consult to Physician [CONS] Routine Comment: Consulting Provider: ABNER DIMAS Physician Instructions: Reason For Exam: Seizure disorder 02/06/21 07:47 Consult to Physician [CONS] Routine Comment: called cell phone/ mary Consulting Provider: JANES OCAMPO Physician Instructions: Reason For Exam: bipolar disorder Primary care physician: [employer]GRAM[employer] Hospitalization Condition: Stable Pertinent studies: EEG consistent with postictal state abnormal. MRI head moderate microvascular changes no CVA CT scan head unremarkable. White matter changes. Hospital course: 70-year-old female history of seizure diabetes presented to ED after status seizure. Patient had prolonged postictal state had MRI EEG CT scan done. EEG was abnormal but consistent with postictal state. On clinical exam patient is alert can get up walk around without any difficulty. Patient aware of herself alert and oriented x3 that she stays with son. Patient is back at baseline. She denies having ever having a alcohol-related withdrawal seizure. But I mention to her that this remains in the differential and should refrain from drinking Disposition: DC-01 TO HOME OR SELFCARE Final Discharge Diagnosis (Prints w/discharge instructions): status seizure - Discharge Diagnoses (1) Severe manic bipolar 1 disorder with psychotic behavior Status: Acute (2) Status epilepticus Status: Acute (3) Hypertension Status: Chronic Qualifiers: Hypertension type: essential hypertension Qualified Code(s): I10 - Essential (primary) hypertension (4) IDDM (insulin dependent diabetes mellitus) Status: Chronic (5) Alcohol dependence Status: Acute Core Measure Documentation - Palliative Care Palliative Care/ Comfort Measures: Not Applicable - Core Measures Any of the following diagnoses?: none Exam - Constitutional Vitals: Temp Pulse Resp BP Pulse Ox 97.9 F 125 H 20 149/72 96 02/09/21 11:44 02/09/21 11:44 02/09/21 11:44 02/09/21 11:44 02/09/21 11:44 General appearance: Present: no acute distress, well-nourished - EENT Eyes: Present: PERRL ENT: hearing intact, clear oral mucosa - Neck Neck: Present: supple, normal ROM - Respiratory Respiratory effort: normal Respiratory: bilateral: CTA - Cardiovascular Heart Sounds: Present: S1 & S2. Absent: rub, click - Extremities Extremities: pulses symmetrical, No edema Peripheral Pulses: within normal limits - Abdominal General gastrointestinal: Present: soft, non-tender, non-distended, normal bowel sounds Female genitourinary: Present: normal - Integumentary Integumentary: Present: clear, warm, dry - Musculoskeletal Musculoskeletal: gait normal, strength equal bilaterally - Psychiatric Psychiatric: appropriate mood/affect, intact judgment & insight - Neurologic Neurologic: CNII-XII intact, moves all extremities Plan Activity: fall precautions, other (No drinking alcohol cessation.) Weight Bearing Status: Full Weight Bearing Diet: diabetic Special Instructions: record blood sugar diary, physical therapy, home health RN, other (No alcohol) Follow up with: PRIMARY CARE,MD [Primary Care Provider] - 3-5 Days Prescriptions: levETIRAcetam [Keppra TAB] 1,000 mg PO BID #60 tablet
[2021-02-09 16:32] VITALS: BP 184/84
[2021-02-11] MEDS ORDERED: cloNIDine TTS 0.2 MG/24 HR PATCH TD SCH (10:00)
== END 2021-02-09 18:25 | disposition home health service (06) | DRG 100 ==
LOC: ED 14:44 → IMCU 18:34 → 3A 02-07 15:15
PROVIDERS: ADMIT Internal Medicine; ATTEND Internal Medicine
DX: G40.901 Epilepsy, unspecified, not intractable, with status epilepticus (principal); G93.41 Metabolic encephalopathy; J45.902 Unspecified asthma with status asthmaticus; R65.10 Systemic inflammatory response syndrome (SIRS) of non-infectious origin without acute organ dysfunction; F31.2 Bipolar disorder, current episode manic severe with psychotic features; K21.9 Gastro-esophageal reflux disease without esophagitis; I10 Essential (primary) hypertension; E11.65 Type 2 diabetes mellitus with hyperglycemia; K72.90 Hepatic failure, unspecified without coma; E87.5 Hyperkalemia; Z79.899 Other long term (current) drug therapy; Z79.4 Long term (current) use of insulin; Z79.82 Long term (current) use of aspirin
CPT/HCPCS: 36415; 70450; 70551; 71045; 80048; 80053; 80076; 80164; 80307; 80320; 81001; 82140; 82550; 82553; 82962; 83036; 83735; 83880; 84484; 85025; 85027; 85610; 85730; 87040; 93005; 95819; 99292; G0378; G0480; J1644; J1815; J1953; J2060